=== PATIENT | female | born 1975 | race American Indian/Alaskan Native ===

== ENCOUNTER 2016-08-29 08:39 | Inpatient (IN) | payer MEDICAID ==
[2016-08-29] MEDS ORDERED: TYLENOL PO ONE (08:53)
[2016-08-29 09:23] LABS: Basophils % (Auto) 0.3 % (0.0-1.8); Eosinophils % (Auto) 1.4 % (0.0-4.3); Hematocrit 36.8 % (30.3-42.9); Hemoglobin 12.2 gm/dl (10.1-14.3); Mean Corpuscular HGB Conc 33 % (30-34); Mean Corpuscular Hemoglobin 29 pg (28-32); Mean Corpuscular Volume 87 fl (79-97); Platelet Count 182 K/mm3 (140-440); Red Blood Count 4.24 M/mm3 (3.65-5.03); Red Cell Distribution Width 14.2 % (13.2-15.2); White Blood Count 8.5 K/mm3 (4.5-11.0)
[2016-08-29 09:31] LABS: BUN/Creatinine Ratio 13.12; Calcium 8.8 mg/dL (8.4-10.2); Chloride 90.4 mmol/L (98-107)
[2016-08-29 09:32] LABS: Potassium 2.9 mmol/L (3.6-5.0)
[2016-08-29] MEDS ORDERED: K-DUR PO ONE (09:37)
--- NOTE | 2016-08-29 09:51 | XRay Report ---
ROUTINE CHEST, TWO VIEWS: HISTORY: Shortness of breath. The trachea, heart, mediastinal contour, lung miramontes and bony thorax are unremarkable. IMPRESSION: Unremarkable chest x-ray.
[2016-08-29] MEDS ORDERED: NACL 0.9% 1000 ML 1,000 ML IV ONE ×2 (12:02→14:58)
[2016-08-29 12:30] LABS: Urine Drugs of Abuse Note Disclamer
[2016-08-29 12:37] LABS: INR 0.97 (0.87-1.13)
[2016-08-29 12:39] LABS: Partial Thromboplastin Time 25.5 Sec. (24.2-36.6)
[2016-08-29 12:47] LABS: Bilirubin,Urine NEG (Negative); Blood,Urine SM (Negative); Ketones,Urine NEG (Negative); Leukocyte Esterase,Urine NEG (Negative); Nitrite,Urine NEG (Negative); Protein,Urine <15 mg/dL mg/dL (Negative); Urobilinogen,Urine < 2.0 mg/dL (<2.0); WBC,Urine < 1.0 /HPF (0.0-6.0)
[2016-08-29 12:49] LABS: Alanine Aminotransferase 31 units/L (7-56); Albumin/Globulin Ratio 1.3 %; Alkaline Phosphatase 63 units/L (35-129); Bilirubin,Total 0.3 mg/dL (0.1-1.2); Creatine Kinase 68 units/L (30-135); Creatine Kinase MB < 1.0 ng/mL (0.0-4.0); Magnesium 1.9 mg/dL (1.7-2.3); Total Protein 7.2 g/dL (6.3-8.2)
[2016-08-29 12:50] LABS: Bilirubin,Direct < 0.2 mg/dL (0-0.2); Bilirubin,Indirect 0.1 mg/dL
[2016-08-29] MEDS ORDERED: ZOFRAN ONE (13:30)
[2016-08-29] MEDS ORDERED: MORPHINE ONE (13:30)
[2016-08-29] MEDS ORDERED: TESSALON PERLES PO ONE ×2 (13:30→13:41)
[2016-08-29] MEDS ORDERED: ZOFRAN IV ONE (13:40)
[2016-08-29] MEDS ORDERED: MORPHINE IV ONE (13:42)
--- NOTE | 2016-08-29 14:46 | Emergency Department Report ---
ED General Adult HPI - General Chief complaint: Fever Stated complaint: FEVER Time Seen by Provider: 08/29/16 11:58 Source: patient Mode of arrival: Ambulatory Limitations: No Limitations - History of Present Illness Initial comments: Patient states that she's had a fever associated with yellow productive sputum for the past 3 days. She denies acute dyspnea. She's had some chills but they haven't been shaking. She feels weak and there is malaise. She denies any previous hospitalizations kidney disease or diabetes. A history of hypertension. -: Gradual, days(s) Location: chest (chest soreness on cough only), upper extremity, lower extremity (generalized aching) Severity scale (0 -10): 6 Quality: aching Consistency: intermittent Improves with: none Worsens with: none Associated Symptoms: chest pain, fever/chills, malaise, weakness Treatments Prior to Arrival: none - Related Data Home Medications Medication Instructions Recorded Confirmed Last Taken Citalopram [Celexa] 20 mg PO DAILY 06/06/13 05/09/14 05/09/14 Atenolol/Chlorthalidone [Tenoretic 1 tab PO BID 05/09/14 05/09/14 05/09/14 100-25 mg] Dextroamphetamine/Amphetamine 10 mg PO DAILY PRN 05/09/14 05/09/14 Unknown [Adderall 10 mg Tablet] Dextroamphetamine/Amphetamine 20 mg PO DAILY 05/09/14 05/09/14 05/06/14 [Adderall] Lisinopril [Zestril] 20 mg PO QDAY 05/09/14 05/09/14 05/09/14 Spironolactone [Aldactone] 25 mg PO DAILY 05/09/14 05/09/14 05/09/14 amLODIPine [Norvasc] 5 mg PO DAILY 05/09/14 05/09/14 05/09/14 clonazePAM [Klonopin] 1 mg PO BID PRN 05/09/14 05/09/14 05/09/14 Previous Rx's Medication Instructions Recorded Last Taken Type Acetaminophen/Codeine 1 tab PO Q6H PRN #14 tab 05/09/14 Unknown Rx [Acetaminophen-Codeine #3 TAB] Cyclobenzaprine [Flexeril 10mg] 10 mg PO TID PRN #14 tablet 05/09/14 Unknown Rx Allergies Allergy/AdvReac Type Severity Reaction Status Date / Time No Known Allergies Allergy Verified 01/10/14 08:47 ED Review of Systems ROS: Stated complaint: FEVER Other details as noted in HPI Constitutional: denies: chills, fever Eyes: denies: eye pain, eye discharge, vision change ENT: throat pain (feels scratchy). denies: ear pain Respiratory: cough. denies: shortness of breath, wheezing Cardiovascular: denies: chest pain, palpitations Endocrine: no symptoms reported Gastrointestinal: denies: abdominal pain, nausea, diarrhea Genitourinary: denies: urgency, dysuria, discharge Musculoskeletal: denies: back pain, joint swelling, arthralgia Skin: denies: rash, lesions Neurological: denies: headache, weakness, paresthesias Psychiatric: denies: anxiety, depression Hematological/Lymphatic: denies: easy bleeding, easy bruising ED Past Medical Hx - Past Medical History Previous Medical History?: Yes Hx Hypertension: Yes Hx Psychiatric Treatment: Yes (depression) - Surgical History Past Surgical History?: Yes Additional Surgical History: hernia repair - Social History Smoking Status: Never Smoker Substance Use Type: Alcohol - Medications Home Medications: Home Medications Medication Instructions Recorded Confirmed Last Taken Type Citalopram [Celexa] 20 mg PO DAILY 06/06/13 05/09/14 05/09/14 History Acetaminophen/Codeine 1 tab PO Q6H PRN #14 tab 05/09/14 Unknown Rx [Acetaminophen-Codeine #3 TAB] Atenolol/Chlorthalidone [Tenoretic 1 tab PO BID 05/09/14 05/09/14 05/09/14 History 100-25 mg] Cyclobenzaprine [Flexeril 10mg] 10 mg PO TID PRN #14 tablet 05/09/14 Unknown Rx Dextroamphetamine/Amphetamine 10 mg PO DAILY PRN 05/09/14 05/09/14 Unknown History [Adderall 10 mg Tablet] Dextroamphetamine/Amphetamine 20 mg PO DAILY 05/09/14 05/09/14 05/06/14 History [Adderall] Lisinopril [Zestril] 20 mg PO QDAY 05/09/14 05/09/14 05/09/14 History Spironolactone [Aldactone] 25 mg PO DAILY 11/05/09/14 05/09/14 History amLODIPine [Norvasc] 5 mg PO DAILY 05/09/14 05/09/14 05/09/14 History clonazePAM [Klonopin] 1 mg PO BID PRN 05/09/14 05/09/14 05/09/14 History ED Physical Exam - General Limitations: No Limitations General appearance: alert, other (appears uncomfortable) - Head Head exam: Present: atraumatic, normocephalic - Eye Eye exam: Present: normal appearance, PERRL, EOMI. Absent: scleral icterus - ENT ENT exam: Present: mucous membranes dry - Neck Neck exam: Present: normal inspection. Absent: tenderness, meningismus - Respiratory Respiratory exam: Present: normal lung sounds bilaterally. Absent: respiratory distress - Cardiovascular Cardiovascular Exam: Present: regular rate, normal rhythm. Absent: systolic murmur, diastolic murmur, rubs, gallop - GI/Abdominal GI/Abdominal exam: Present: soft, normal bowel sounds. Absent: distended, tenderness, guarding, rebound, rigid - Extremities Exam Extremities exam: Present: normal inspection - Back Exam Back exam: Present: normal inspection - Neurological Exam Neurological exam: Present: alert, oriented X3, CN II-XII intact. Absent: motor sensory deficit - Psychiatric Psychiatric exam: Present: normal affect, normal mood - Skin Skin exam: Present: warm, dry, intact, normal color. Absent: rash ED Course Vital Signs 08/29/16 08/29/16 08/29/16 08:46 09:01 11:40 Temperature 103.2 F H Pulse Rate 113 H Respiratory 18 18 Rate Blood Pressure 159/106 O2 Sat by Pulse 100 98 Oximetry 08/29/16 08/29/16 08/29/16 11:42 11:44 11:46 Temperature Pulse Rate 94 H 101 H 93 H Respiratory 16 16 16 Rate Blood Pressure 108/72 108/72 108/72 O2 Sat by Pulse 98 100 97 Oximetry 08/29/16 08/29/16 08/29/16 11:50 12:40 12:42 Temperature Pulse Rate 92 H 95 H Respiratory 16 24 17 Rate Blood Pressure 117/64 117/64 O2 Sat by Pulse 97 100 100 Oximetry 08/29/16 08/29/16 08/29/16 12:44 12:46 12:48 Temperature Pulse Rate 96 H 97 H 95 H Respiratory 14 21 13 Rate Blood Pressure 117/64 117/64 117/64 O2 Sat by Pulse 98 99 99 Oximetry 08/29/16 08/29/16 08/29/16 12:50 12:52 12:54 Temperature Pulse Rate 94 H 91 H 95 H Respiratory 18 17 15 Rate Blood Pressure 117/64 117/64 117/64 O2 Sat by Pulse 100 100 99 Oximetry 08/29/16 08/29/16 08/29/16 12:56 12:58 13:00 Temperature Pulse Rate 94 H 92 H 95 H Respiratory 14 16 18 Rate Blood Pressure 117/64 117/64 117/64 O2 Sat by Pulse 99 100 99 Oximetry 08/29/16 08/29/16 08/29/16 13:01 13:02 13:04 Temperature Pulse Rate 94 H 95 H 94 H Respiratory 13 17 17 Rate Blood Pressure 131/73 131/73 131/73 O2 Sat by Pulse 98 99 92 Oximetry 08/29/16 08/29/16 08/29/16 13:06 13:08 13:10 Temperature Pulse Rate 92 H 92 H 93 H Respiratory 17 18 20 Rate Blood Pressure 131/73 131/73 131/73 O2 Sat by Pulse 99 98 99 Oximetry 08/29/16 08/29/16 08/29/16 13:12 13:14 13:16 Temperature Pulse Rate 91 H 92 H 94 H Respiratory 19 18 19 Rate Blood Pressure 131/73 131/73 131/73 O2 Sat by Pulse 98 91 92 Oximetry 08/29/16 08/29/16 08/29/16 13:18 13:20 13:22 Temperature Pulse Rate 106 H Respiratory 18 36 H 34 H Rate Blood Pressure 131/73 131/73 131/73 O2 Sat by Pulse 98 88 99 Oximetry 08/29/16 08/29/16 08/29/16 13:24 13:26 13:28 Temperature Pulse Rate Respiratory 19 16 21 Rate Blood Pressure 131/73 131/73 131/73 O2 Sat by Pulse 100 99 100 Oximetry 08/29/16 08/29/16 08/29/16 13:30 13:32 13:34 Temperature Pulse Rate Respiratory 19 16 26 H Rate Blood Pressure 131/73 131/73 131/73 O2 Sat by Pulse 100 99 100 Oximetry 08/29/16 08/29/16 08/29/16 13:36 13:38 13:40 Temperature Pulse Rate Respiratory 18 17 24 Rate Blood Pressure 131/73 131/73 131/73 O2 Sat by Pulse 97 98 100 Oximetry 08/29/16 08/29/16 08/29/16 13:42 13:44 13:46 Temperature Pulse Rate 82 Respiratory 14 13 14 Rate Blood Pressure 131/73 131/73 131/73 O2 Sat by Pulse 99 99 99 Oximetry 08/29/16 08/29/16 08/29/16 13:48 13:50 13:52 Temperature Pulse Rate 92 H 93 H Respiratory 17 16 17 Rate Blood Pressure 131/73 131/73 131/73 O2 Sat by Pulse 100 98 100 Oximetry 08/29/16 08/29/16 08/29/16 13:54 13:56 13:58 Temperature Pulse Rate 92 H 92 H 93 H Respiratory 22 17 20 Rate Blood Pressure 131/73 131/73 131/73 O2 Sat by Pulse 100 100 100 Oximetry 08/29/16 08/29/16 08/29/16 14:00 14:02 14:04 Temperature Pulse Rate 91 H 95 H 93 H Respiratory 20 19 19 Rate Blood Pressure 132/70 132/70 132/70 O2 Sat by Pulse 100 100 99 Oximetry 08/29/16 08/29/16 08/29/16 14:06 14:08 14:10 Temperature Pulse Rate 95 H 97 H 96 H Respiratory 13 12 15 Rate Blood Pressure 132/70 132/70 132/70 O2 Sat by Pulse 99 98 99 Oximetry 08/29/16 08/29/16 08/29/16 14:12 14:14 14:16 Temperature Pulse Rate 93 H 93 H 95 H Respiratory 16 13 15 Rate Blood Pressure 132/70 132/70 132/70 O2 Sat by Pulse 99 99 99 Oximetry - Reevaluation(s) Reevaluation #1: She given supplemental potassium IV fluids and finally Levaquin. Case was related to Dr. Gasca litigation paralegal for the hospitalist service. Patient will be admitted. 08/29/16 15:27 ED Medical Decision Making - Lab Data Result diagrams: 08/29/16 08:56 08/29/16 08:56 Laboratory Results - last 24 hr 08/29/16 08/29/16 08/29/16 08:56 08:56 12:06 WBC 8.5 RBC 4.24 Hgb 12.2 Hct 36.8 MCV 87 MCH 29 MCHC 33 RDW 14.2 Plt Count 182 Lymph % (Auto) 7.6 L [place] % (Auto) 3.8 Eos % (Auto) 1.4 Baso % (Auto) 0.3 Lymph # 0.6 L [place] # 0.3 Eos # 0.1 Baso # 0.0 Seg Neutrophils % 86.9 H Seg Neutrophils # 7.4 PT 12.8 INR 0.97 APTT 25.5 Potassium 2.9 L* Carbon Dioxide 24 BUN 21 H Creatinine 1.6 H Estimated GFR 43 BUN/Creatinine Ratio 13.12 Glucose 124 H Lactic Acid Calcium 8.8 Magnesium Total Bilirubin Direct Bilirubin Indirect Bilirubin AST ALT Alkaline Phosphatase Total Creatine Kinase CK-MB (CK-2) CK-MB (CK-2) Rel Index Troponin T NT-Pro-B Natriuret Pep Total Protein Albumin Albumin/Globulin Ratio Urine Color Urine Turbidity Urine pH Ur Specific [place] Urine Protein Urine Glucose (UA) Urine Ketones Urine Blood Urine Nitrite Urine Bilirubin Urine Urobilinogen Ur Leukocyte Esterase Urine WBC (Auto) Urine RBC (Auto) U Epithel Cells (Auto) Urine HCG, Qual Urine Opiates Screen Urine Methadone Screen Ur Barbiturates Screen Ur Phencyclidine Scrn Ur Amphetamines Screen U Benzodiazepines Scrn Urine Cocaine Screen U Marijuana (THC) Screen Drugs of Abuse Note 08/29/16 08/29/16 08/29/16 12:06 12:06 12:20 WBC RBC Hgb Hct MCV MCH MCHC RDW Plt Count Lymph % (Auto) [place] % (Auto) Eos % (Auto) Baso % (Auto) Lymph # [place] # Eos # Baso # Seg Neutrophils % Seg Neutrophils # PT INR APTT Potassium Carbon Dioxide BUN Creatinine Estimated GFR BUN/Creatinine Ratio Glucose Lactic Acid 1.0 Calcium Magnesium 1.9 Total Bilirubin 0.3 Direct Bilirubin < 0.2 Indirect Bilirubin 0.1 AST 39 ALT 31 Alkaline Phosphatase 63 Total Creatine Kinase 68 CK-MB (CK-2) < 1.0 CK-MB (CK-2) Rel Index 1.4 Troponin T < 0.010 NT-Pro-B Natriuret Pep 129.9 Total Protein 7.2 Albumin 4.0 Albumin/Globulin Ratio 1.3 Urine Color Straw Urine Turbidity Clear Urine pH 6.0 Ur Specific [place] 1.008 Urine Protein <15 mg/dl Urine Glucose (UA) Neg Urine Ketones Neg Urine Blood Sm Urine Nitrite Neg Urine Bilirubin Neg Urine Urobilinogen < 2.0 Ur Leukocyte Esterase Neg Urine WBC (Auto) < 1.0 Urine RBC (Auto) 2.0 U Epithel Cells (Auto) 1.0 Urine HCG, Qual Negative Urine Opiates Screen Urine Methadone Screen Ur Barbiturates Screen Ur Phencyclidine Scrn Ur Amphetamines Screen U Benzodiazepines Scrn Urine Cocaine Screen U Marijuana (THC) Screen Drugs of Abuse Note 08/29/16 12:20 WBC RBC Hgb Hct MCV MCH MCHC RDW Plt Count Lymph % (Auto) [place] % (Auto) Eos % (Auto) Baso % (Auto) Lymph # [place] # Eos # Baso # Seg Neutrophils % Seg Neutrophils # PT INR APTT Potassium Carbon Dioxide BUN Creatinine Estimated GFR BUN/Creatinine Ratio Glucose Lactic Acid Calcium Magnesium Total Bilirubin Direct Bilirubin Indirect Bilirubin AST ALT Alkaline Phosphatase Total Creatine Kinase CK-MB (CK-2) CK-MB (CK-2) Rel Index Troponin T NT-Pro-B Natriuret Pep Total Protein Albumin Albumin/Globulin Ratio Urine Color Urine Turbidity Urine pH Ur Specific [place] Urine Protein Urine Glucose (UA) Urine Ketones Urine Blood Urine Nitrite Urine Bilirubin Urine Urobilinogen Ur Leukocyte Esterase Urine WBC (Auto) Urine RBC (Auto) U Epithel Cells (Auto) Urine HCG, Qual Urine Opiates Screen Presumptive negative Urine Methadone Screen Presumptive negative Ur Barbiturates Screen Presumptive negative Ur Phencyclidine Scrn Presumptive negative Ur Amphetamines Screen Presumptive positive U Benzodiazepines Scrn Presumptive negative Urine Cocaine Screen Presumptive negative U Marijuana (THC) Screen Presumptive negative Drugs of Abuse Note Disclamer - EKG Data -: EKG Interpreted by Me EKG shows normal: sinus rhythm Rate: normal - EKG Data When compared to previous EKG there are: previous EKG unavailable Interpretation: nonspecific ST-T wave pj, other (there is a prolonged QT interval/U wave. Nonspecific but possibly related to electrolyte disorder) - Radiology Data interpreted by me: Chest x-ray no acute process Critical care attestation.: If time is entered above; I have spent that time in minutes in the direct care of this critically ill patient, excluding procedure time. ED Disposition Clinical Impression: Respiratory infection, Hypokalemia, Increased anion gap metabolic acidosis, Renal insufficiency Disposition: OP ADMITTED IP TO THIS HOSP Is pt being admited?: Yes Does the pt Need Aspirin: Yes Condition: Stable Referrals: DEBRA NEVAREZ MD [Primary Care Provider] - 3-5 Days Time of Disposition: 15:31
[2016-08-29] MEDS ORDERED: LEVAQUIN 500MG/100ML 500 MG/100 ML BAG IV ONE (14:55)
[2016-08-29] MEDS ORDERED: BABY ASPIRIN PO ONE (15:33)
--- NOTE | 2016-08-29 15:56 | History and Physical Report ---
History of Present Illness Date of examination: 08/29/16 History of present illness: Patient states that she's had a fever associated with yellow productive sputum for the past 3 days. She denies acute dyspnea. She's had some chills but they haven't been shaking. She feels weak and has malaise. She denies any previous hospitalizations kidney disease or diabetes. A history of hypertension. Past History Past Medical History: hypertension, other (polycystic ovarian disease) Medications and Allergies Allergies Allergy/AdvReac Type Severity Reaction Status Date / Time No Known Allergies Allergy Verified 01/10/14 08:47 Home Medications Medication Instructions Recorded Confirmed Last Taken Type Citalopram [Celexa] 20 mg PO DAILY 06/06/13 05/09/14 05/09/14 History Acetaminophen/Codeine 1 tab PO Q6H PRN #14 tab 05/09/14 Unknown Rx [Acetaminophen-Codeine #3 TAB] Atenolol/Chlorthalidone [Tenoretic 1 tab PO BID 05/09/14 05/09/14 05/09/14 History 100-25 mg] Cyclobenzaprine [Flexeril 10mg] 10 mg PO TID PRN #14 tablet 05/09/14 Unknown Rx Dextroamphetamine/Amphetamine 10 mg PO DAILY PRN 05/09/14 05/09/14 Unknown History [Adderall 10 mg Tablet] Dextroamphetamine/Amphetamine 20 mg PO DAILY 05/09/14 05/09/14 05/06/14 History [Adderall] Lisinopril [Zestril] 20 mg PO QDAY 05/09/14 05/09/14 05/09/14 History Spironolactone [Aldactone] 25 mg PO DAILY 05/09/14 05/09/14 05/09/14 History amLODIPine [Norvasc] 5 mg PO DAILY 05/09/14 05/09/14 05/09/14 History clonazePAM [Klonopin] 1 mg PO BID PRN 05/09/14 05/09/14 05/09/14 History Active Meds: Active Medications Levofloxacin/Dextrose (Levaquin 500mg/100ml) 500 mg in 100 mls @ 100 mls/hr IV ONCE ONE Stop: 08/29/16 15:54 Sodium Chloride (Nacl 0.9% 1000 Ml) 1,000 mls @ 125 mls/hr IV ONCE ONE Stop: 08/29/16 22:57 Review of Systems Constitutional: fever, chills, weakness Exam - Constitutional Vitals: Temp Pulse Resp BP Pulse Ox 103.2 F H 95 H 15 132/70 99 08/29/16 08:46 08/29/16 14:16 08/29/16 14:16 08/29/16 14:16 08/29/16 14:16 General appearance: Present: mild distress - EENT Eyes: Present: PERRL, EOM intact ENT: hearing intact, clear oral mucosa - Neck Neck: Present: supple, normal ROM - Respiratory Respiratory effort: normal Respiratory: bilateral: CTA - Cardiovascular Rhythm: regular Heart Sounds: Present: S1 & S2 - Extremities Extremities: no ischemia, No edema - Abdominal General gastrointestinal: Present: soft, non-tender, non-distended, normal bowel sounds - Musculoskeletal Musculoskeletal: strength equal bilaterally - Psychiatric Psychiatric: appropriate mood/affect, intact judgment & insight - Neurologic Neurologic: CNII-XII intact, moves all extremities Results - Labs CBC & Chem 7: 08/29/16 08:56 08/29/16 08:56 Labs: Laboratory Last Values WBC 8.5 K/mm3 (4.5-11.0) 08/29/16 08:56 RBC 4.24 M/mm3 (3.65-5.03) 08/29/16 08:56 Hgb 12.2 gm/dl (10.1-14.3) 08/29/16 08:56 Hct 36.8 % (30.3-42.9) 08/29/16 08:56 MCV 87 fl (79-97) 08/29/16 08:56 MCH 29 pg (28-32) 08/29/16 08:56 MCHC 33 % (30-34) 08/29/16 08:56 RDW 14.2 % (13.2-15.2) 08/29/16 08:56 Plt Count 182 K/mm3 (140-440) 08/29/16 08:56 Lymph % (Auto) 7.6 % (13.4-35.0) L 08/29/16 08:56 [place] % (Auto) 3.8 % (0.0-7.3) 08/29/16 08:56 Eos % (Auto) 1.4 % (0.0-4.3) 08/29/16 08:56 Baso % (Auto) 0.3 % (0.0-1.8) 08/29/16 08:56 Lymph # 0.6 K/mm3 (1.2-5.4) L 08/29/16 08:56 [place] # 0.3 K/mm3 (0.0-0.8) 08/29/16 08:56 Eos # 0.1 K/mm3 (0.0-0.4) 08/29/16 08:56 Baso # 0.0 K/mm3 (0.0-0.1) 08/29/16 08:56 Seg Neutrophils % 86.9 % (40.0-70.0) H 08/29/16 08:56 Seg Neutrophils # 7.4 K/mm3 (1.8-7.7) 08/29/16 08:56 PT 12.8 Sec. (12.2-14.9) 08/29/16 12:06 INR 0.97 (0.87-1.13) 08/29/16 12:06 APTT 25.5 Sec. (24.2-36.6) 08/29/16 12:06 Potassium 2.9 mmol/L (3.6-5.0) L* 08/29/16 08:56 Carbon Dioxide 24 mmol/L (22-30) 08/29/16 08:56 BUN 21 mg/dL (7-17) H 08/29/16 08:56 Creatinine 1.6 mg/dL (0.7-1.2) H 08/29/16 08:56 Estimated GFR 43 ml/min 08/29/16 08:56 BUN/Creatinine Ratio 13.12 % 08/29/16 08:56 Glucose 124 mg/dL (65-100) H 08/29/16 08:56 Lactic Acid 1.0 mmol/L (0.7-2.0) 08/29/16 12:06 Calcium 8.8 mg/dL (8.4-10.2) 08/29/16 08:56 Magnesium 1.9 mg/dL (1.7-2.3) 08/29/16 12:06 Total Bilirubin 0.3 mg/dL (0.1-1.2) 08/29/16 12:06 Direct Bilirubin < 0.2 mg/dL (0-0.2) 08/29/16 12:06 Indirect Bilirubin 0.1 mg/dL 08/29/16 12:06 AST 39 units/L (5-40) 08/29/16 12:06 ALT 31 units/L (7-56) 08/29/16 12:06 Alkaline Phosphatase 63 units/L (35-129) 08/29/16 12:06 Total Creatine Kinase 68 units/L (30-135) 08/29/16 12:06 CK-MB (CK-2) < 1.0 ng/mL (0.0-4.0) 08/29/16 12:06 CK-MB (CK-2) Rel Index 1.4 (0-4) 08/29/16 12:06 Troponin T < 0.010 ng/mL (0.00-0.029) 08/29/16 12:06 NT-Pro-B Natriuret Pep 129.9 pg/mL (0-450) 08/29/16 12:06 Total Protein 7.2 g/dL (6.3-8.2) 08/29/16 12:06 Albumin 4.0 g/dL (3.9-5) 08/29/16 12:06 Albumin/Globulin Ratio 1.3 % 08/29/16 12:06 Urine Color Straw (Yellow) 08/29/16 12:20 Urine Turbidity Clear (Clear) 08/29/16 12:20 Urine pH 6.0 (5.0-7.0) 08/29/16 12:20 Ur Specific [place] 1.008 (1.003-1.030) 08/29/16 12:20 Urine Protein <15 mg/dl mg/dL (Negative) 08/29/16 12:20 Urine Glucose (UA) Neg mg/dL (Negative) 08/29/16 12:20 Urine Ketones Neg mg/dL (Negative) 08/29/16 12:20 Urine Blood Sm (Negative) 08/29/16 12:20 Urine Nitrite Neg (Negative) 08/29/16 12:20 Urine Bilirubin Neg (Negative) 08/29/16 12:20 Urine Urobilinogen < 2.0 mg/dL (<2.0) 08/29/16 12:20 Ur Leukocyte Esterase Neg (Negative) 08/29/16 12:20 Urine WBC (Auto) < 1.0 /HPF (0.0-6.0) 08/29/16 12:20 Urine RBC (Auto) 2.0 /HPF (0.0-6.0) 08/29/16 12:20 U Epithel Cells (Auto) 1.0 /HPF (0-13.0) 08/29/16 12:20 Urine HCG, Qual Negative (Negative) 08/29/16 12:20 Urine Opiates Screen Presumptive negative 08/29/16 12:20 Urine Methadone Screen Presumptive negative 08/29/16 12:20 Ur Barbiturates Screen Presumptive negative 08/29/16 12:20 Ur Phencyclidine Scrn Presumptive negative 08/29/16 12:20 Ur Amphetamines Screen Presumptive positive 08/29/16 12:20 U Benzodiazepines Scrn Presumptive negative 08/29/16 12:20 Urine Cocaine Screen Presumptive negative 08/29/16 12:20 U Marijuana (THC) Screen Presumptive negative 08/29/16 12:20 Drugs of Abuse Note Disclamer 08/29/16 12:20 Assessment and Plan - Patient Problems (1) Fever Current Visit: Yes Status: Acute Qualifiers: Fever type: F Encounter type: E Plan to address problem: Unsure of etiology of fever but will check blood cultures, urine cultures. Chest x-ray appears to be normal. We'll start IV Levaquin per ER physician. We will get infectious disease consult. We'll also check for influenza (2) Polycystic ovarian disease Current Visit: Yes Status: Acute Plan to address problem: Noted. May need nephrology involvement given renal insufficiency (3) Hypokalemia Current Visit: Yes Status: Acute Plan to address problem: We'll replete potassium (4) Increased anion gap metabolic acidosis Current Visit: Yes Status: Acute Plan to address problem: Unsure of etiology but will begin workup. Nephrology consult. We will give one ampule of bicarbonate (5) Renal insufficiency Current Visit: Yes Status: Acute Plan to address problem: Patient has a history of polycystic ovarian disease. We will get nephrology consult
[2016-08-29] MEDS ORDERED: ZOFRAN IV PRN (15:59)
[2016-08-29] MEDS ORDERED: DULCOLAX PR PRN (15:59)
[2016-08-29] MEDS ORDERED: PERCOCET 5/325 PO PRN (15:59)
[2016-08-29] MEDS ORDERED: MORPHINE IV PRN (15:59)
[2016-08-29] MEDS ORDERED: MILK OF MAGNESIA PO PRN (15:59)
[2016-08-29] MEDS ORDERED: FLEXERIL PO PRN (16:07)
[2016-08-29] MEDS: DUONEB 0.5 MG-3 MG/3 ML SOLN IH SCH ×2 (16:48→20:16)
[2016-08-29] MEDS: LOVENOX SUB-Q SCH (17:25)
[2016-08-29] MEDS: TYLENOL PO PRN ×2 (17:26→23:43)
[2016-08-29] MEDS: PHENERGAN/CODEINE 6.25-10 MG/5ML PO SCH (18:15)
[2016-08-29] MEDS: ALDACTONE PO SCH (18:15)
[2016-08-29] MEDS: celeXA PO SCH (18:15)
[2016-08-29] MEDS: AMPHETAMINE PO SCH (18:31)
[2016-08-29] MEDS: DEXTROAMPHETAMINE PO SCH (18:31)
[2016-08-29] MEDS: ZESTRIL PO SCH (18:32)
[2016-08-29] MEDS ORDERED: ATENOLOL PO SCH (22:00)
[2016-08-29] MEDS ORDERED: CHLORTHALIDONE PO SCH (22:00)
[2016-08-29] MEDS: THALITONE PO SCH (22:05)
[2016-08-29] MEDS: TENORMIN PO SCH (22:09)
[2016-08-30] MEDS: DUONEB 0.5 MG-3 MG/3 ML SOLN IH SCH ×4 (02:11→20:04)
[2016-08-30] MEDS: NACL 0.9% 1000 ML 1,000 ML IV SCH ×2 (06:08→17:00)
[2016-08-30] MEDS: PHENERGAN/CODEINE 6.25-10 MG/5ML PO SCH ×2 (06:38→17:44)
[2016-08-30 07:04] LABS: Basophils % (Auto) 0.4 % (0.0-1.8); Eosinophils % (Auto) 1.9 % (0.0-4.3); Hematocrit 33.1 % (30.3-42.9); Hemoglobin 10.9 gm/dl (10.1-14.3); Mean Corpuscular HGB Conc 33 % (30-34); Mean Corpuscular Hemoglobin 29 pg (28-32); Mean Corpuscular Volume 86 fl (79-97); Platelet Count 147 K/mm3 (140-440); Red Blood Count 3.84 M/mm3 (3.65-5.03); Red Cell Distribution Width 14.4 % (13.2-15.2); White Blood Count 4.6 K/mm3 (4.5-11.0)
[2016-08-30 07:10] LABS: Fractional Sodium Excretion 0.7; Potassium, Urine 12.2 mEq/L
[2016-08-30 07:22] LABS: Albumin 3.6 g/dL (3.9-5); Albumin/Globulin Ratio 1.1 %; BUN/Creatinine Ratio 13.12; Bilirubin,Total 0.3 mg/dL (0.1-1.2); Calcium 7.8 mg/dL (8.4-10.2); Chloride 99.5 mmol/L (98-107); Potassium 3.2 mmol/L (3.6-5.0); Total Protein 6.8 g/dL (6.3-8.2)
--- NOTE | 2016-08-30 09:08 | Admit Criteria Form ---
Admission Criteria Documentation: HYPONATREMIA; HYPERNATREMIA; HYPOKALEMIA; HYPERKALEMIA; HYPOCALCEMIA; HYPERCALCEMIA Clinical Indications for Inpatient Care (Place 'X' for any and all applicable criteria): Ongoing inpatient care may be indicated for ANY ONE of the following [G](1)(2)(3 )(5): [ ]I. Hyponatremia with ANY ONE of the following: [ ]a) Sodium less than 130 mEq/L (mmol/L) (new) (6)(22) [ ]b) Sodium less than 135 mEq/L (mmol/L) with ANY ONE of the following: [ ]i) Severe medical etiology requiring inpatient management (eg, heart failure, hypovolemia) [ ]ii) Altered mental status [ ]iii) Seizures [ ]II. Hypernatremia with ANY ONE of the following: [ ]a) Sodium greater than 155 mEq/L (mmol/L) [ ]b) Sodium greater than 150 mEq/L (mmol/L) with ANY ONE of the following: [ ] i) Altered mental status [ ]ii) Seizures [ ]iii) Severe medical etiology (eg, hypovolemia, diabetes insipidus) [ ]iv) Severe weakness [ ]v) Severe medical etiology (eg, hemolysis, infection, drug overdose) [X]III. Hypokalemia with ANY ONE of the following: [ ]a) Potassium less than 2.5 mEq/L (mmol/L) despite outpatient and emergency treatment [X]b) Potassium less than 3.0 mEq/L (mmol/L) with ANY ONE of the following: [ ]i) Weakness [ ]ii) Cardiac abnormality (eg, arrhythmia, conduction disturbance) [ ]iii) Cardiac ischemia [ ]iv) Ileus [X]v) Ongoing medical cause requiring inpatient management. ( e.g., acute renal wasting, SIADH) [ ]vi) Other severe symptoms [ ] IV. Hyperkalemia with ANY ONE of the following: [ ]a) Potassium greater than 6.5 mEq/L (mmol/L) [ ]b) Potassium greater than 5 mEq/L (mmol/L) with ANY ONE of the following: [ ]i) Severe ECG findings [H] [ ]ii) Acute worsening of renal failure (creatinine greater than 2.5 mg/dL (221 micromoles/L) or significant elevation for age and size) [ ] V. Hypocalcemia with ANY ONE of the following: [ ]a) Calcium less than 7 mg/dL (1.75 mmol/L) despite outpatient and emergency treatment(19) [ ]b) Calcium less than 8 mg/dL (2 mmol/L) with significant symptoms or findings; examples include: [ ]i) Cardiac abnormality (eg, arrhythmia or conduction disturbance) [ ]ii) Altered mental status [ ]iii) Seizures [ ]iv) Breathing difficulty [ ]v) Muscle spasms [ ]. Hypercalcemia with ANY ONE of the following: [ ]a) Calcium greater than 14 mg/dL (3.5 mmol/L) [ ]b) Calcium greater than 12 mg/dL (3 mmol/L) with ANY ONE of the following: [ ]i) Significant dehydration or hypovolemia as indicated by ANY ONE of the following(2): [ ]1. Clinically significant dehydration as indicated by ANY ONE of the following: [ ]A. Acute loss of weight from baseline (5% of body weight in adults, 9% in pediatric patients) [ ]B. Hemodynamic instability [ ]C. Acute renal failure [ ]D. Serum sodium greater than 150 mEq/L (mmol/L) [ ]2) Dehydration that is persistent indicated by ALL of the following: [ ]A. Oral rehydration therapy not tolerated or insufficient to adequately correct dehydration [ ]B. Appropriate intravenous treatment (eg, fluids ) does not readily correct dehydration ie, after 12 to 24 hours of treatment) [ ]ii) Significant symptoms or findings; examples include: [ ]1) Altered mental status [ ]2) Cardiac abnormality (eg, arrhythmia, conduction disturbance) [ ]3) Cardiac abnormality (eg, arrhythmia, conduction disturbance) The original [email or web address] content created by [employer] has been revised. The portions of the content which have been revised are identified through the use of italic text or in bold, and [facility] has neither reviewed nor approved the modified material. All other unmodified content is copyright [facility] [email or web address] Please see references footnoted in the original [facility] [employer] edition 2016 Admission Criteria Met: Yes
[2016-08-30] MEDS: DEXTROAMPHETAMINE PO SCH (10:00)
[2016-08-30] MEDS: AMPHETAMINE PO SCH (10:00)
--- NOTE | 2016-08-30 10:13 | Consultation ---
History of Present Illness - Reason for Consult Consult date: 08/30/16 chronic renal failure Requesting physician: CARLOS BOWEN - History of Present Illness Patient states that she's had a fever associated with yellow productive sputum for the past 3 days. She denies acute dyspnea. She's had some chills but they haven't been shaking. She feels weak and has malaise. She denies any previous hospitalizations kidney disease or diabetes. A history of hypertension. She has knowledge of renal dysfunction. However she has not seen any line analyst yet. States that she was told about her kidneys several years ago. Patient has been hypertensive since her childbirth in 2000. Patient does take some nonsteroidals that time. Denies any history of frequent urinary tract infection or gross hematuria Past History Past Medical History: hypertension, other (polycystic ovarian disease) Medications and Allergies Allergies Allergy/AdvReac Type Severity Reaction Status Date / Time No Known Allergies Allergy Verified 01/10/14 08:47 Home Medications Medication Instructions Recorded Confirmed Last Taken Type Citalopram [Celexa] 20 mg PO DAILY 06/06/13 05/09/14 05/09/14 History Acetaminophen/Codeine 1 tab PO Q6H PRN #14 tab 05/09/14 Unknown Rx [Acetaminophen-Codeine #3 TAB] Atenolol/Chlorthalidone [Tenoretic 1 tab PO BID 05/09/14 05/09/14 05/09/14 History 100-25 mg] Cyclobenzaprine [Flexeril 10mg] 10 mg PO TID PRN #14 tablet 05/09/14 Unknown Rx Dextroamphetamine/Amphetamine 10 mg PO DAILY PRN 05/09/14 05/09/14 Unknown History [Adderall 10 mg Tablet] Dextroamphetamine/Amphetamine 20 mg PO DAILY 05/09/14 05/09/14 05/06/14 History [Adderall] Lisinopril [Zestril] 20 mg PO QDAY 05/09/14 05/09/14 05/09/14 History Spironolactone [Aldactone] 25 mg PO DAILY 05/09/14 05/09/14 05/09/14 History amLODIPine [Norvasc] 5 mg PO DAILY 05/09/14 05/09/14 05/09/14 History clonazePAM [Klonopin] 1 mg PO BID PRN 11/05/09/14 05/09/14 History Active Meds: Active Medications Acetaminophen (Tylenol) 650 mg PO Q4H PRN PRN Reason: Pain MILD(1-3)/Fever >100.5/MARMOLEJO Last Admin: 08/29/16 23:43 Dose: 650 mg Albuterol/Ipratropium (Duoneb 0.5 Mg-3 Mg/3 Ml Soln) 1 ampul IH Q6HRT [facility] Last Admin: 08/30/16 08:14 Dose: 1 ampul Amlodipine Besylate (Norvasc) 5 mg PO DAILY [facility] Atenolol (Tenormin) 100 mg PO BID [facility] Last Admin: 08/29/16 22:09 Dose: Not Given Bisacodyl (Dulcolax) 10 mg [place] QDAY PRN PRN Reason: Constipation unrelieved by MOM Chlorthalidone (Thalitone) 25 mg PO BID [facility] Last Admin: 08/29/16 22:05 Dose: Not Given Citalopram Hydrobromide (Celexa) 20 mg PO DAILY [facility] Last Admin: 08/29/16 18:15 Dose: 20 mg Clonazepam (Klonopin) 1 mg PO BID PRN PRN Reason: Anxiety Cyclobenzaprine HCl (Flexeril) 10 mg PO TID PRN PRN Reason: Muscle Spasm Enoxaparin Sodium (Lovenox) 40 mg SUB-Q QDAY@1700 [facility] Last Admin: 08/29/16 17:25 Dose: 40 mg Sodium Chloride (Nacl 0.9% 1000 Ml) 1,000 mls @ 125 mls/hr IV DIRECT [facility] Last Admin: 08/30/16 06:08 Dose: 125 mls/hr Levofloxacin/Dextrose (Levaquin 500mg/100ml) 500 mg in 100 mls @ 100 mls/hr IV Q24H [facility] PRN Reason: Protocol Lisinopril (Zestril) 20 mg PO QDAY [facility] Last Admin: 08/29/16 18:32 Dose: Not Given Magnesium Hydroxide (Milk Of Magnesia) 30 ml PO Q4H PRN PRN Reason: Constipation Miscellaneous Medication (Dextroamphetamine/Amphetamine [Adderall]) 20 mg PO DAILY [facility] Last Admin: 08/29/16 18:31 Dose: Not Given Morphine Sulfate (Morphine) 2 mg IV Q4H PRN PRN Reason: Pain, Moderate (4-6) Last Admin: 08/29/16 17:00 Dose: 2 mg Ondansetron HCl (Zofran) 4 mg IV Q8H PRN PRN Reason: N/V unrelieved by Reglan Oseltamivir Phosphate (Tamiflu) 75 mg PO BID [facility] Stop: 09/03/16 22:01 Oxycodone/Acetaminophen (Percocet 5/325) 1 tab PO Q6H PRN PRN Reason: Pain, Moderate (4-6) Potassium Chloride (K-Dur) 40 meq PO Q6H [facility] Stop: 08/30/16 14:01 Promethazine HCl/Codeine (Phenergan/Codeine 6.25-10 Mg/5ml) 10 ml PO Q12H [facility] Last Admin: 08/30/16 06:38 Dose: 10 ml Spironolactone (Aldactone) 25 mg PO DAILY [facility] Last Admin: 08/29/16 18:15 Dose: 25 mg Review of Systems All systems: negative (negative except as noted above) Exam - Vital Signs Vital signs: Vital Signs Temp Pulse Resp BP Pulse Ox 103.2 F H 113 H 18 159/106 100 08/29/16 08:46 08/29/16 08:46 08/29/16 08:46 08/29/16 08:46 08/29/16 08:46 - General Appearance General appearance: well-developed, well-nourished, appears stated age EENT: PERRL, mucous membranes moist Neck: Present: neck supple, trachea midline. Absent: JVD/HJR, Masses Respiratory: Clear to Ascultation Heart: regular, normal heart rate Gastrointestinal: Present: normal, normoactive bowel sounds Integumentary: no rash, warm and dry Results - Lab Results 08/30/16 05:56 08/30/16 05:56 Most recent lab results Calcium 7.8 mg/dL (8.4-10.2) L 08/30/16 05:56 Magnesium 1.9 mg/dL (1.7-2.3) 08/29/16 12:06 Urine Creatinine 53.7 mg/dL (0.1-20.0) H 08/30/16 05:30 Urine Sodium 47 mEq/L 08/30/16 05:30 Assessment and Plan Impression * Renal insufficiency. Most likely acute or chronic. Acute component probably prerenal * Influenza * Hypertension * Hypokalemia Recommendations * Her urine fractional excretion of sodium is 0.7%. Continue IV hydration * Her urine shows a few red cells. Shall check a renal ultrasound and do vasculitis workup as well * Avoid nephrotoxins * Patient noted to be hypokalemic as well. Shall check a trans-tubular potassium gradient as well as a renin Mike ratio * Monitor patient's fluid status and electrolytes closely * Thank you very much for the consultation. Shall follow along with you.
[2016-08-30 10:16] LABS: ISTAT Base Excess -1; ISTAT HCO3 23.1; ISTAT PCO2 35.2 (35-45); ISTAT PH 7.426 (7.35-7.45); ISTAT PO2 76 (80-105); ISTAT SITE 0; ISTAT SO2 95; ISTAT TCO2 24
[2016-08-30] MEDS: THALITONE PO SCH ×2 (10:53→22:50)
[2016-08-30] MEDS: celeXA PO SCH (10:53)
[2016-08-30] MEDS: ZESTRIL PO SCH (10:53)
[2016-08-30] MEDS: TENORMIN PO SCH ×2 (10:54→22:50)
[2016-08-30] MEDS: ALDACTONE PO SCH (10:54)
[2016-08-30] MEDS: K-DUR PO SCH ×2 (10:54→14:08)
[2016-08-30] MEDS: NORVASC PO SCH (10:54)
[2016-08-30] MEDS ORDERED: TAMIFLU PO SCH (11:00)
--- NOTE | 2016-08-30 12:55 | Ultrasound Report ---
ULTRASOUND RENAL BILATERAL HISTORY: Renal failure. TECHNIQUE: transabdominal ultrasound with color Doppler interrogation. FINDINGS: The right kidney measures 15.8 x 6.9 x 7.8cm. Right renal cortex: 1.6cm. The left kidney measures 15.8 x 8.6 x 9.1cm. Left renal cortex: 2.1cm. Both kidneys are echogenic and contain multiple cysts. The largest cyst on the right measures 3.0 cm near the superior pole. The largest cyst on the left measures 5.3 cm near the superior pole. No hypervascular renal mass, nephrolithiasis, hydronephrosis or perinephric fluid is identified. The bladder which appears to contain mild debris. No bladder wall abnormality is appreciated. IMPRESSION: Echogenic kidneys with multiple cysts. No evidence for renal obstruction. Debris level in the bladder, correlate for cystitis.
[2016-08-30] MEDS ORDERED: LEVAQUIN 500MG/100ML 500 MG/100 ML BAG IV SCH (15:00)
[2016-08-30] MEDS: LOVENOX SUB-Q SCH (17:00)
--- NOTE | 2016-08-30 19:05 | Consultation ---
History of Present Illness - Reason for Consult Consult date: 08/30/16 fever Requesting physician: CARLOS BOWEN - History of Present Illness Patient states that she's had a fever associated with yellow productive sputum for the past 3 days. She denies acute dyspnea. She's had some chills but they haven't been shaking. She feels weak and has malaise. She denies any previous hospitalizations. Nasopharyngeal secretions tested positive for influnza A virus. Patient also had a fever of 103.2 hence infectious disease consult. I saw patient at bedside. She denied any other symptoms. PHYSICAL EXAM VS - tmax 103.2 Chest - b/l mild rhonchi cvs - s1s2 abd - bs+ extr - no edema. LABS Reviewed. See lab section. ASSESSMENT. 1. PNEUMONIA 2. Influnza virus infection 3. RENAL INSUFFICIENCY 4. OBESITY RECOMMENDATION 1. Oseltamivir may not be of any advantage to the patient at this point. Will d/ c. 2. Continue levaquin 3. ct chest/abdomen and pelvis. 4. cbc/bmp in am Past History Past Medical History: hypertension, other (polycystic ovarian disease) Medications and Allergies Allergies Allergy/AdvReac Type Severity Reaction Status Date / Time No Known Allergies Allergy Verified 01/10/14 08:47 Home Medications Medication Instructions Recorded Confirmed Last Taken Type Citalopram [Celexa] 20 mg PO DAILY 06/06/13 05/09/14 05/09/14 History Acetaminophen/Codeine 1 tab PO Q6H PRN #14 tab 05/09/14 Unknown Rx [Acetaminophen-Codeine #3 TAB] Atenolol/Chlorthalidone [Tenoretic 1 tab PO BID 05/09/14 05/09/14 05/09/14 History 100-25 mg] Cyclobenzaprine [Flexeril 10mg] 10 mg PO TID PRN #14 tablet 05/09/14 Unknown Rx Dextroamphetamine/Amphetamine 10 mg PO DAILY PRN 05/09/14 05/09/14 Unknown History [Adderall 10 mg Tablet] Dextroamphetamine/Amphetamine 20 mg PO DAILY 05/09/14 05/09/14 05/06/14 History [Adderall] Lisinopril [Zestril] 20 mg PO QDAY 05/09/14 05/09/14 05/09/14 History Spironolactone [Aldactone] 25 mg PO DAILY 05/09/14 05/09/14 05/09/14 History amLODIPine [Norvasc] 5 mg PO DAILY 05/09/14 05/09/14 05/09/14 History clonazePAM [Klonopin] 1 mg PO BID PRN 05/09/14 05/09/14 05/09/14 History Active Meds: Active Medications Acetaminophen (Tylenol) 650 mg PO Q4H PRN PRN Reason: Pain MILD(1-3)/Fever >100.5/[facility] Last Admin: 08/29/16 23:43 Dose: 650 mg Albuterol/Ipratropium (Duoneb 0.5 Mg-3 Mg/3 Ml Soln) 1 ampul IH Q6HRT [facility] Last Admin: 08/30/16 14:28 Dose: 1 ampul Amlodipine Besylate (Norvasc) 5 mg PO DAILY [facility] Last Admin: 08/30/16 10:54 Dose: 5 mg Atenolol (Tenormin) 100 mg PO BID [facility] Last Admin: 08/30/16 10:54 Dose: 100 mg Bisacodyl (Dulcolax) 10 mg [place] QDAY PRN PRN Reason: Constipation unrelieved by MOM Chlorthalidone (Thalitone) 25 mg PO BID [facility] Last Admin: 08/30/16 10:53 Dose: 25 mg Citalopram Hydrobromide (Celexa) 20 mg PO DAILY [facility] Last Admin: 08/30/16 10:53 Dose: 20 mg Clonazepam (Klonopin) 1 mg PO BID PRN PRN Reason: Anxiety Cyclobenzaprine HCl (Flexeril) 10 mg PO TID PRN PRN Reason: Muscle Spasm Enoxaparin Sodium (Lovenox) 40 mg SUB-Q QDAY@1700 [facility] Last Admin: 08/30/16 17:00 Dose: 40 mg Sodium Chloride (Nacl 0.9% 1000 Ml) 1,000 mls @ 125 mls/hr IV DIRECT [facility] Last Admin: 08/30/16 17:00 Dose: 125 mls/hr Levofloxacin/Dextrose (Levaquin 500mg/100ml) 500 mg in 100 mls @ 100 mls/hr IV Q24H [facility] PRN Reason: Protocol Last Admin: 08/30/16 14:07 Dose: 100 mls/hr Lisinopril (Zestril) 20 mg PO QDAY [facility] Last Admin: 08/30/16 10:53 Dose: 20 mg Magnesium Hydroxide (Milk Of Magnesia) 30 ml PO Q4H PRN PRN Reason: Constipation Morphine Sulfate (Morphine) 2 mg IV Q4H PRN PRN Reason: Pain, Moderate (4-6) Last Admin: 08/29/16 17:00 Dose: 2 mg Ondansetron HCl (Zofran) 4 mg IV Q8H PRN PRN Reason: N/V unrelieved by Reglan Oseltamivir Phosphate (Tamiflu) 75 mg PO BID [facility] Stop: 09/03/16 22:01 Last Admin: 08/30/16 14:08 Dose: 75 mg Oxycodone/Acetaminophen (Percocet 5/325) 1 tab PO Q6H PRN PRN Reason: Pain, Moderate (4-6) Promethazine HCl/Codeine (Phenergan/Codeine 6.25-10 Mg/5ml) 10 ml PO Q12H [facility] Last Admin: 08/30/16 17:44 Dose: 10 ml Spironolactone (Aldactone) 25 mg PO DAILY [facility] Last Admin: 08/30/16 10:54 Dose: 25 mg Physical Examination - Constitutional Vitals: Vital Signs Temp Pulse Resp BP Pulse Ox 99.2 F 96 H 22 119/69 98 08/30/16 16:02 08/30/16 16:02 08/30/16 16:02 08/30/16 16:02 08/30/16 16:02 Temperature -Last 24 Hours Temperature 99.2 F Temperature 99.7 F Temperature 98.6 F Temperature 99.5 F Temperature 99.2 F Results - Labs CBC & Chem 7: 08/30/16 05:56 08/30/16 11:14 Labs: Abnormal lab results 08/30/16 08/30/16 08/30/16 Range/Units 05:30 05:56 05:56 [place] % (Auto) 7.4 H (0.0-7.3) % Lymph # 0.9 L (1.2-5.4) K/mm3 Seg Neutrophils % 71.6 H (40.0-70.0) % Potassium 3.2 L (3.6-5.0) mmol/L BUN 21 H (7-17) mg/dL Creatinine 1.6 H (0.7-1.2) mg/dL Glucose 120 H (65-100) mg/dL Calcium 7.8 L (8.4-10.2) mg/dL Albumin 3.6 L (3.9-5) g/dL Urine Creatinine 53.7 H (0.1-20.0) mg/dL 08/30/16 Range/Units 11:14 [place] % (Auto) (0.0-7.3) % Lymph # (1.2-5.4) K/mm3 Seg Neutrophils % (40.0-70.0) % Potassium (3.6-5.0) mmol/L BUN (7-17) mg/dL Creatinine 1.4 H (0.7-1.2) mg/dL Glucose (65-100) mg/dL Calcium (8.4-10.2) mg/dL Albumin (3.9-5) g/dL Urine Creatinine (0.1-20.0) mg/dL
--- NOTE | 2016-08-30 19:21 | Progress Note ---
Assessment and Plan Assessment and plan: Influenza A Infection. Start Tamiflu, supportive care. Fever . ID consulted Acute kidney injury versus CKD. She has history of polycystic kidneys. Nephrology consulted, iv fluids Polycystic kidney disease. Hypokalemia. Replace and recheck in am. Hypertension. BP stable on Atenolol, Norvasc, Lisinopril DVT prophylaxis with Lovenox Full code status History Interval history: Fever, cough Generalized body pains Hospitalist Physical - Physical exam Narrative exam: Gen: Not in acute distress, obese HEENT: Normocephalic,atraumatic Neck :supple, no JVD Lungs: clear to auscultation bilaterally, no crackles no wheezes Heart: S1 and S2 regular, no murmurs, rubs or gallops, Abdomen: soft non-tender, non-distended, normal bowel sounds Extremities: no edema, no clubbing or cyanosis Neuro: Awake alert oriented x 3, non focal Psych: normal mood - Constitutional Vitals: Temp Pulse Resp BP Pulse Ox 99.2 F 96 H 22 119/69 98 08/30/16 16:02 08/30/16 16:02 08/30/16 16:02 08/30/16 16:02 08/30/16 16:02 General appearance: Present: mild distress Results - Labs CBC & Chem 7: 08/30/16 05:56 08/30/16 11:14 Labs: Laboratory Last Values WBC 4.6 K/mm3 (4.5-11.0) 08/30/16 05:56 RBC 3.84 M/mm3 (3.65-5.03) 08/30/16 05:56 Hgb 10.9 gm/dl (10.1-14.3) 08/30/16 05:56 Hct 33.1 % (30.3-42.9) 08/30/16 05:56 MCV 86 fl (79-97) 08/30/16 05:56 MCH 29 pg (28-32) 08/30/16 05:56 MCHC 33 % (30-34) 08/30/16 05:56 RDW 14.4 % (13.2-15.2) 08/30/16 05:56 Plt Count 147 K/mm3 (140-440) 08/30/16 05:56 Lymph % (Auto) 18.7 % (13.4-35.0) 08/30/16 05:56 [place] % (Auto) 7.4 % (0.0-7.3) H 08/30/16 05:56 Eos % (Auto) 1.9 % (0.0-4.3) 08/30/16 05:56 Baso % (Auto) 0.4 % (0.0-1.8) 08/30/16 05:56 Lymph # 0.9 K/mm3 (1.2-5.4) L 08/30/16 05:56 [place] # 0.3 K/mm3 (0.0-0.8) 08/30/16 05:56 Eos # 0.1 K/mm3 (0.0-0.4) 08/30/16 05:56 Baso # 0.0 K/mm3 (0.0-0.1) 08/30/16 05:56 Seg Neutrophils % 71.6 % (40.0-70.0) H 08/30/16 05:56 Seg Neutrophils # 3.3 K/mm3 (1.8-7.7) 08/30/16 05:56 PT 12.8 Sec. (12.2-14.9) 08/29/16 12:06 INR 0.97 (0.87-1.13) 08/29/16 12:06 APTT 25.5 Sec. (24.2-36.6) 08/29/16 12:06 POC ABG pH 7.426 (7.35-7.45) 08/29/16 11:14 POC ABG pCO2 35.2 (35-45) 08/29/16 11:14 POC ABG pO2 76 (80-105) L 08/29/16 11:14 POC ABG HCO3 23.1 08/29/16 11:14 POC ABG Total CO2 24 08/29/16 11:14 POC ABG O2 Sat 95 08/29/16 11:14 POC ABG Base Excess -1 08/29/16 11:14 FiO2 21 % 08/29/16 11:14 Sodium 139 mmol/L (137-145) 08/30/16 11:14 Potassium 3.2 mmol/L (3.6-5.0) L 08/30/16 05:56 Chloride 99.5 mmol/L (98-107) 08/30/16 05:56 Carbon Dioxide 24 mmol/L (22-30) 08/30/16 05:56 Anion Gap 19 mmol/L 08/30/16 05:56 BUN 21 mg/dL (7-17) H 08/30/16 05:56 Creatinine 1.4 mg/dL (0.7-1.2) H 08/30/16 11:14 Estimated GFR 43 ml/min 08/30/16 05:56 BUN/Creatinine Ratio 13.12 % 08/30/16 05:56 Glucose 120 mg/dL (65-100) H 08/30/16 05:56 Lactic Acid 1.0 mmol/L (0.7-2.0) 08/29/16 12:06 Calcium 7.8 mg/dL (8.4-10.2) L 08/30/16 05:56 Magnesium 1.9 mg/dL (1.7-2.3) 08/29/16 12:06 Total Bilirubin 0.3 mg/dL (0.1-1.2) 08/30/16 05:56 Direct Bilirubin < 0.2 mg/dL (0-0.2) 08/29/16 12:06 Indirect Bilirubin 0.1 mg/dL 08/29/16 12:06 AST 30 units/L (5-40) 08/30/16 05:56 ALT 31 units/L (7-56) 08/30/16 05:56 Alkaline Phosphatase 59 units/L (35-129) 08/30/16 05:56 Total Creatine Kinase 68 units/L (30-135) 08/29/16 12:06 CK-MB (CK-2) < 1.0 ng/mL (0.0-4.0) 08/29/16 12:06 CK-MB (CK-2) Rel Index 1.4 (0-4) 08/29/16 12:06 Troponin T < 0.010 ng/mL (0.00-0.029) 08/29/16 12:06 NT-Pro-B Natriuret Pep 129.9 pg/mL (0-450) 08/29/16 12:06 Total Protein 6.8 g/dL (6.3-8.2) 08/30/16 05:56 Albumin 3.6 g/dL (3.9-5) L 08/30/16 05:56 Albumin/Globulin Ratio 1.1 % 08/30/16 05:56 Urine Color Straw (Yellow) 08/29/16 12:20 Urine Turbidity Clear (Clear) 08/29/16 12:20 Urine pH 6.0 (5.0-7.0) 08/29/16 12:20 Ur Specific [place] 1.008 (1.003-1.030) 08/29/16 12:20 Urine Protein <15 mg/dl mg/dL (Negative) 08/29/16 12:20 Urine Glucose (UA) Neg mg/dL (Negative) 08/29/16 12:20 Urine Ketones Neg mg/dL (Negative) 08/29/16 12:20 Urine Blood Sm (Negative) 08/29/16 12:20 Urine Nitrite Neg (Negative) 08/29/16 12:20 Urine Bilirubin Neg (Negative) 08/29/16 12:20 Urine Urobilinogen < 2.0 mg/dL (<2.0) 08/29/16 12:20 Ur Leukocyte Esterase Neg (Negative) 08/29/16 12:20 Urine WBC (Auto) < 1.0 /HPF (0.0-6.0) 08/29/16 12:20 Urine RBC (Auto) 2.0 /HPF (0.0-6.0) 08/29/16 12:20 U Epithel Cells (Auto) 1.0 /HPF (0-13.0) 08/29/16 12:20 Urine Creatinine 53.7 mg/dL (0.1-20.0) H 08/30/16 05:30 Urine Sodium 47 mEq/L 08/30/16 05:30 Fraction Sodium Excret 0.7 08/30/16 05:30 Urine Potassium 12.20 mEq/L 08/30/16 05:30 Urine HCG, Qual Negative (Negative) 08/29/16 12:20 Urine Opiates Screen Presumptive negative 08/29/16 12:20 Urine Methadone Screen Presumptive negative 08/29/16 12:20 Ur Barbiturates Screen Presumptive negative 08/29/16 12:20 Ur Phencyclidine Scrn Presumptive negative 08/29/16 12:20 Ur Amphetamines Screen Presumptive positive 08/29/16 12:20 U Benzodiazepines Scrn Presumptive negative 08/29/16 12:20 Urine Cocaine Screen Presumptive negative 08/29/16 12:20 U Marijuana (THC) Screen Presumptive negative 08/29/16 12:20 Drugs of Abuse Note Disclamer 08/29/16 12:20
[2016-08-31] MEDS: NACL 0.9% 1000 ML 1,000 ML IV SCH (00:57)
--- NOTE | 2016-08-31 01:05 | Cat Scan Report ---
FINAL REPORT PROCEDURE: CT CHEST WO CON TECHNIQUE: Computerized axial tomography of the chest was performed without contrast material. This study is performed without intravenous contrast and the sensitivity for pathology, including neoplasms, adenopathy, abscess, pulmonary embolism and aortic dissection, is reduced. HISTORY: pneumonia COMPARISON: No prior studies are available for comparison. TECHNICAL QUALITY: Satisfactory. FINDINGS: Heart and pericardium: Normal. Thoracic aorta: Normal. Pulmonary vasculature: Normal. Lymph nodes: No enlarged thoracic lymph nodes. Lungs: The lungs are clear. No infiltrate, effusion or pneumothorax. Central airway is patent. Pleural space: Slight pleural thickening in the dependent portion of both lower lungs.. Musculoskeletal structures: No significant abnormality. Upper abdominal structures: There are numerous areas of hypoattenuation throughout the liver, these measure to 3.5 centimeters. Multiple cysts are suspected. This is not fully evaluated on this study.. IMPRESSION: There is no evidence acute infiltrate or effusion. Minimal pleural thickening of both lower lungs. Numerous areas of hypoattenuation throughout the portions of the liver imaged, multiple cysts are suspected. The liver is not fully evaluated on this study..
--- NOTE | 2016-08-31 01:26 | Cat Scan Report ---
FINAL REPORT PROCEDURE: CT ABDOMEN PELVIS WO CON TECHNIQUE: Computerized axial tomography of the abdomen and pelvis was performed without intravenous contrast. This study is performed without intravascular contrast material and its sensitivity for abdominal and pelvic pathology, including neoplasms, inflammation, abscess, free fluid, thrombosis, arterial dissection and infarction, is reduced compared with a contrast enhanced study. HISTORY: pneumonia, abdominal pain COMPARISON: No prior studies are available for comparison. FINDINGS: Visualized lower thorax: Slight pleural thickening bilateral lower lungs. Liver: Liver size is normal. There are numerous areas hypoattenuation throughout liver, the largest areas in the right lobe of the liver near the dome of the liver measure up to 3 centimeters. Multiple cysts are suspected. No prior studies are available for review with this examination.. Spleen: Normal size and attenuation. Gallbladder and biliary system: Normal. Pancreas: Normal. Adrenals: Normal. Kidneys: There are numerous cysts identified on the kidneys. Polycystic renal disease is suspected. No hydronephrosis. The ureters have a normal course to the urinary bladder. No ureteral obstruction is seen. Tiny calcifications identified in the corticomedullary region of the kidneys measure up to 2 millimeters.. GI tract: The stomach is normal. A small hiatal hernia is identified. The small bowel has a normal caliber. No obstruction is seen. The oral contrast does reach the colon without difficulty. The cecum and appendix region are normal. The colon is normal.. Lymph nodes and mesentery: Normal. Vasculature: Normal. Bladder: Normal. Reproductive organs: The uterus is slightly enlarged. Fibroid formation is possible. There appears to be dominant cyst on the left ovary this measures approximately 2.5 centimeters.. Peritoneum: No free fluid. Musculoskeletal structures: No significant abnormality. Other: None. IMPRESSION: There is no evidence of intestinal or urinary tract obstruction. No ileus or enteritis. Polycystic kidney disease is identified bilaterally. There are some complicated cysts identified. Numerous small renal calculi are noted. Multiple cysts identified throughout the liver. Slightly enlarged uterus, fibroid formation is possible. Dominant 2.5 centimeter cyst left ovary is suspected as described..
[2016-08-31] MEDS: DUONEB 0.5 MG-3 MG/3 ML SOLN IH SCH ×3 (03:07→13:50)
[2016-08-31 05:24] LABS: Hematocrit 29.9 % (30.3-42.9); Hemoglobin 9.9 gm/dl (10.1-14.3); Mean Corpuscular HGB Conc 33 % (30-34); Mean Corpuscular Hemoglobin 29 pg (28-32); Mean Corpuscular Volume 88 fl (79-97); White Blood Count 4.1 K/mm3 (4.5-11.0)
[2016-08-31 05:55] LABS: BUN/Creatinine Ratio 14.61; Calcium 7.5 mg/dL (8.4-10.2); Chloride 106.2 mmol/L (98-107); Potassium 3.8 mmol/L (3.6-5.0)
[2016-08-31 06:01] LABS: Platelet Count 147 K/mm3 (140-440)
[2016-08-31] MEDS: PHENERGAN/CODEINE 6.25-10 MG/5ML PO SCH (06:33)
--- NOTE | 2016-08-31 08:55 | Progress Note ---
Assessment and Plan Impression * Renal insufficiency. Most likely acute or chronic. Acute component probably prerenal * Influenza * Hypertension * Hypokalemia * Multiple bilateral cysts. Possible polycystic kidney disease Recommendations * Her urine fractional excretion of sodium is 0.7%. * Her renal function seems to be improving . Continue IV hydration. Shall reduce the rate of IV fluid * Her urine shows a few red cells. Her renal ultrasound showed multiple cysts bilaterally. Follow-up results of vasculitis workup * Avoid nephrotoxins * She has multiple bilateral renal cysts and also cysts in her liver. Suspect underlying polycystic kidney disease Subjective Date of service: 08/31/16 Interval history: Patient is comfortable today. She does complain of some pleuritic chest pain from coughing. Denies any shortness of breath. No nausea or vomiting Objective - Vital Signs Vital signs: Vital Signs - 12hr 08/30/16 08/30/16 08/30/16 22:00 22:50 23:00 Temperature 98.3 F Pulse Rate 83 Pulse Rate [ 83 Right Radial] Respiratory 18 Rate Respiratory 18 Rate [Chest] Blood Pressure 118/75 Blood Pressure 118/75 [Right Arm] O2 Sat by Pulse 100 Oximetry - General Appearance General appearance: well-developed, well-nourished, appears stated age EENT: PERRL, mucous membranes moist Neck: no JVD, no thyromegaly, no carotid bruit, supple Respiratory: Present: Clear to Ascultation, Ronchi (few scattered rhonchi) Cardiology: regular, normal heart rate, S1S2, no murmurs Gastrointestinal: normal, normoactive bowel sounds Integumentary: no rash, warm and dry, other (no edema) - Lab 08/31/16 04:54 08/31/16 04:54 Most recent lab results Calcium 7.5 mg/dL (8.4-10.2) L 08/31/16 04:54 Magnesium 1.9 mg/dL (1.7-2.3) 08/29/16 12:06 Urine Creatinine 53.7 mg/dL (0.1-20.0) H 08/30/16 05:30 Urine Sodium 47 mEq/L 08/30/16 05:30
--- NOTE | 2016-08-31 10:16 | Discharge Summary ---
Providers - Providers Date of Admission: 08/29/16 15:59 Date of discharge: 08/31/16 Attending physician: NAHOMY HERNÁNDEZ MD 08/29/16 16:06 Consult to Physician [CONS] Routine Consulting Provider: JULIETTE PEREZ Reason For Exam: fever Place consult to:: DR. PEREZ Notified:: [facility] Phone number called:: [phone] Was contact made?: Yes If yes, spoke with:: MARY LOU Time called:: 19:06 Comment:: PAT NOTIFIED Primary care physician: DEBRA NEVAREZ Hospitalization Condition: Stable Disposition: DISCHARGED TO HOME OR SELFCARE Time spent for discharge: 35 mins Core Measure Documentation - Palliative Care Palliative Care/ Comfort Measures: Not Applicable - Core Measures Any of the following diagnoses?: none - VTE Discharge Requirements Deep Vein Thrombosis/Pulmonary Embolism Present on Admission: No Exam - Constitutional Vitals: Temp Pulse Resp BP Pulse Ox 98.1 F 83 20 119/84 100 08/31/16 08:00 08/31/16 08:27 08/31/16 08:27 08/31/16 08:00 08/31/16 08:17 Plan Activity: advance as tolerated, fall precautions Diet: low fat Special Instructions: record daily BP diary Follow up with: DEBRA NEVAREZ MD [Primary Care Provider] - 3-5 Days MONA HOLT MD [Staff Physician] - 7 Days Prescriptions: Oseltamivir [Tamiflu] 75 mg PO QDAY #7 capsule
[2016-08-31] MEDS: celeXA PO SCH (10:42)
[2016-08-31] MEDS: NORVASC PO SCH (10:42)
[2016-08-31] MEDS: ALDACTONE PO SCH (10:42)
[2016-08-31] MEDS: THALITONE PO SCH (10:42)
[2016-08-31] MEDS: TENORMIN PO SCH (10:44)
[2016-08-31] MEDS: ZESTRIL PO SCH (10:44)
[2016-08-31 15:53] VITALS: BP 123/76
[2016-08-31] MEDS ORDERED: LEVAQUIN PO SCH (22:00)
== END 2016-08-31 17:20 | disposition home or self-care (01) | DRG 682 ==
LOC: ED 08:39 → 3A 15:59
PROVIDERS: ADMIT Internal Medicine; ATTEND Internal Medicine
PROC: 4A033R1 Measurement of Arterial Saturation, Peripheral, Percutaneous Approach (ICD-10-PCS; principal; 2016-08-29)
DX: N17.9 Acute kidney failure, unspecified (principal); J18.9 Pneumonia, unspecified organism; J10.1 Influenza due to other identified influenza virus with other respiratory manifestations; E87.2 Acidosis; E28.2 Polycystic ovarian syndrome; R50.9 Fever, unspecified; E87.6 Hypokalemia; I10 Essential (primary) hypertension; E66.9 Obesity, unspecified; Z68.37 Body mass index [BMI] 37.0-37.9, adult
CPT/HCPCS: 36415; 71020; 71250; 74176; 76770; 80048; 80053; 80074; 80307; 81001; 81025; 82088; 82140; 82550; 82553; 82565; 82570; 82803; 83735; 83880; 84133; 84295; 84300; 84484; 85025; 85027; 85610; 85730; 87040; 87400; 93005; 93010; 94640; 96365; 96372; 96375; J1650; J1956; J2270; J2405; J7030

== ENCOUNTER 2017-08-14 08:03 | Emergency (ER) | payer MEDICAID ==
[2017-08-14 08:12] VITALS: BP 164/88
--- NOTE | 2017-08-14 08:54 | Emergency Department Report ---
<MICHAEL WHITE - Last Filed: 08/14/17 12:40> ED General Adult HPI - General Chief complaint: Pain General Stated complaint: BACK/SHOULDER PAIN/SWOLLEN LEGS Time Seen by Provider: 08/14/17 08:17 Source: patient Mode of arrival: Ambulatory Limitations: No Limitations - History of Present Illness Initial comments: This is a 42-year-old female nontoxic, well nourished in appearance, no acute signs of distress presents to the ED with c/o of left shoulder pain and bilateral feet/ankle swelling x1 week. Patient denies any trauma to the extremities. Patient describes shoulder pain as aching with level of 8/10. Patient stated she wake up with left shoulder pain aching and is worsening. Patient stated she has kidney disease but denies any heart failure. Patient stated symptoms of feet/ankle swelling decreases over night and when laying but increases during waking. Patient denies any chest pain, shortness of breath, fever, chills, nausea, vomiting, headache or stiff neck. Patient denies any calf pain or calf tenderness. Patient is also complaining of acute on chronic intermittent pain at the umbilicus area from scar tissue status post hernia repair done 2011. Patient denies any drug allergies. Past medical history includes hypertension, psychiatric, seizures, PTSD, and repair, and renal disease. -: week(s) (1) Location: left, upper extremity, lower extremity Radiation: non-radiation Severity scale (0 -10): 8 Quality: aching Consistency: constant Improves with: none Worsens with: none Associated Symptoms: denies other symptoms. denies: confusion, chest pain, cough, diaphoresis, fever/chills, headaches, loss of appetite, malaise, nausea/ vomiting, rash, seizure, shortness of breath, syncope, weakness Treatments Prior to Arrival: none - Related Data Home Medications Medication Instructions Recorded Confirmed Last Taken Citalopram [Celexa] 20 mg PO DAILY 06/06/13 11/05/16 05/09/14 Dextroamphetamine/Amphetamine 10 mg PO DAILY PRN 05/09/14 11/05/16 Unknown [Adderall 10 mg Tablet] Lisinopril [Zestril TAB] 20 mg PO QDAY 05/09/14 11/05/16 05/09/14 Spironolactone [Aldactone] 25 mg PO DAILY 05/09/14 11/05/16 05/09/14 clonazePAM [KlonoPIN] 1 mg PO BID PRN 05/09/14 11/05/16 05/09/14 Previous Rx's Medication Instructions Recorded Last Taken Type Cyclobenzaprine [Flexeril 10 MG 10 mg PO TID PRN #14 tablet 05/09/14 Unknown Rx TAB] Oseltamivir [Tamiflu] 75 mg PO QDAY #7 capsule 08/31/16 Unknown Rx Acetaminophen/Codeine [Tylenol 1 tab PO Q6H PRN #14 tab 11/05/16 Unknown Rx /Codeine # 3 tab] Amoxicillin/K Clav Tab [Augmentin 1 tab PO Q12HR 10 Days tab 11/05/16 Unknown Rx 875 mg] Atenolol [Tenormin] 100 mg PO DAILY #30 tab 11/05/16 Unknown Rx Butalb/Acetamin/Caff 50-325-40 2 tab PO Q6H PRN #14 tablet 11/05/16 Unknown Rx [Fioricet] amLODIPine [Norvasc] 10 mg PO DAILY #30 tablet 11/05/16 Unknown Rx Cyclobenzaprine [Flexeril] 10 mg PO QHS PRN #7 tablet 08/14/17 Unknown Rx Ibuprofen [Motrin] 600 mg PO Q8H PRN #30 tablet 08/14/17 Unknown Rx Allergies Allergy/AdvReac Type Severity Reaction Status Date / Time No Known Allergies Allergy Verified 01/10/14 08:47 ED Review of Systems ROS: Stated complaint: BACK/SHOULDER PAIN/SWOLLEN LEGS Other details as noted in HPI Constitutional: denies: chills, fever Eyes: denies: eye pain, eye discharge, vision change ENT: denies: ear pain, throat pain Respiratory: denies: cough, shortness of breath, wheezing Cardiovascular: denies: chest pain, palpitations Endocrine: no symptoms reported Gastrointestinal: denies: abdominal pain, nausea, diarrhea Genitourinary: denies: urgency, dysuria, discharge Musculoskeletal: arthralgia. denies: back pain, joint swelling Skin: denies: rash, lesions Neurological: denies: headache, weakness, paresthesias Psychiatric: denies: anxiety, depression Hematological/Lymphatic: denies: easy bleeding, easy bruising ED Past Medical Hx - Past Medical History Previous Medical History?: Yes Hx Hypertension: Yes Hx Heart Attack/AMI: No Hx Congestive Heart Failure: No Hx Deep Vein Thrombosis: No Hx Renal Disease: No Hx Seizures: Yes Hx Kidney Stones: No Hx Psychiatric Treatment: Yes (depression) Hx Tuberculosis: No Hx HIV: No Additional medical history: PTSD - Surgical History Hx Coronary Stent: No Hx Pacemaker: No Hx Internal Defibrillator: No Additional Surgical History: hernia repair - Social History Smoking Status: Never Smoker Substance Use Type: None - Medications Home Medications: Home Medications Medication Instructions Recorded Confirmed Last Taken Type Citalopram [Celexa] 20 mg PO DAILY 06/06/13 11/05/16 05/09/14 History Cyclobenzaprine [Flexeril 10 MG 10 mg PO TID PRN #14 tablet 05/09/14 11/05/16 Unknown Rx TAB] Dextroamphetamine/Amphetamine 10 mg PO DAILY PRN 05/09/14 11/05/16 Unknown History [Adderall 10 mg Tablet] Lisinopril [Zestril TAB] 20 mg PO QDAY 05/09/14 11/05/16 05/09/14 History Spironolactone [Aldactone] 25 mg PO DAILY 05/09/14 11/05/16 05/09/14 History clonazePAM [KlonoPIN] 1 mg PO BID PRN 05/09/14 11/05/16 05/09/14 History Oseltamivir [Tamiflu] 75 mg PO QDAY #7 capsule 08/31/16 11/05/16 Unknown Rx Acetaminophen/Codeine [Tylenol 1 tab PO Q6H PRN #14 tab 11/05/16 Unknown Rx /Codeine # 3 tab] Amoxicillin/K Clav Tab [Augmentin 1 tab PO Q12HR 10 Days tab 11/05/16 Unknown Rx 875 mg] Atenolol [Tenormin] 100 mg PO DAILY #30 tab 11/05/16 Unknown Rx Butalb/Acetamin/Caff 50-325-40 2 tab PO Q6H PRN #14 tablet 11/05/16 Unknown Rx [Fioricet] amLODIPine [Norvasc] 10 mg PO DAILY #30 tablet 11/05/16 Unknown Rx Cyclobenzaprine [Flexeril] 10 mg PO QHS PRN #7 tablet 08/14/17 Unknown Rx Ibuprofen [Motrin] 600 mg PO Q8H PRN #30 tablet 08/14/17 Unknown Rx ED Physical Exam - General Limitations: No Limitations General appearance: alert, in no apparent distress - Head Head exam: Present: atraumatic, normocephalic - Eye Eye exam: Present: normal appearance, PERRL, EOMI Pupils: Present: normal accommodation - ENT ENT exam: Present: normal exam, normal orophraynx, mucous membranes moist, TM's normal bilaterally, normal external ear exam - Neck Neck exam: Present: normal inspection, full ROM. Absent: tenderness, meningismus, lymphadenopathy, thyromegaly - Respiratory Respiratory exam: Present: normal lung sounds bilaterally. Absent: respiratory distress, wheezes, rales, rhonchi, stridor, chest wall tenderness, accessory muscle use, decreased breath sounds, prolonged expiratory - Cardiovascular Cardiovascular Exam: Present: regular rate, normal rhythm, normal heart sounds. Absent: irregular rhythm, systolic murmur, diastolic murmur, rubs, gallop - GI/Abdominal GI/Abdominal exam: Present: soft, normal bowel sounds, other (scar tissue near umbilicus status post hernia). Absent: distended, tenderness, guarding, rebound , rigid, diminished bowel sounds - Expanded GI/Abdominal Exam Expanded GI/Abdominal exam: Absent: psoas sign, obturator sign, heel tap sign, Au's sign, Rovsing's sign, tenderness at Mcburney's Point, ascites - Rectal Rectal exam: Present: deferred - Extremities Exam Extremities exam: Present: normal inspection, full ROM, normal capillary refill , pedal edema. Absent: tenderness, joint swelling, calf tenderness - Expanded Upper Extremity Exam Left General: Present: normal inspection Shoulder Exam: Present: normal inspection, full ROM, tenderness. Absent: swelling, abrasion, laceration, ecchymosis, deformity, crepidus, dislocation, erythema, tenderness over AC joint Upper Arm exam: Present: normal inspection, full ROM. Absent: tenderness, swelling, abrasion, laceration, ecchymosis, deformity, crepidus, dislocation, erythema Elbow exam: Present: normal inspection, full ROM. Absent: tenderness, swelling , abrasion, laceration, ecchymosis, deformity, crepidus, dislocation, erythema, effusion, pain w/ pronation/supination, tenderness over radial head Forearm Wrist exam: Present: normal inspection, full ROM. Absent: tenderness, swelling, abrasion, laceration, ecchymosis, deformity, crepidus, dislocation, erythema, tenderness over anatomical snuff box, pain with axial thumb loading Hand Wrist exam: Present: normal inspection, full ROM. Absent: tenderness, swelling, abrasion, laceration, ecchymosis, deformity, crepidus, dislocation, erythema, amputation, nail avulsion, subungual hematoma Neuro motor exam: Present: wrist extension intact, thumb opposition intact, thumb IP flexion intact, thumb adduction intact, fingers 2-5 abduction intact Neurosensory exam: Present: 2-point discrimination, radial nerve intact, ulnar nerve intact, median nerve intact Vascular: Present: vascular compromise, normal capillary refill, radial pulse, brachial pulse, ulnar pulse - Expanded Lower Extremity Exam Left Hip exam: Present: normal inspection (bilateral exam), full ROM Upper Leg exam: Present: normal inspection (bilateral exam), full ROM Knee exam: Present: normal inspection (bilateral exam), full ROM Lower Leg exam: Present: normal inspection (bilateral exam), full ROM. Absent: tenderness, swelling, abrasion, laceration, ecchymosis, deformity, crepidus, dislocation, erythema, palpable cord, Kaylee's sign Ankle exam: Present: normal inspection (bilateral exam), full ROM, swelling (2+ edema). Absent: tenderness, abrasion, laceration, ecchymosis, deformity, crepidus, dislocation, erythema, anterior draw sign Foot/Toe exam: Present: normal inspection (bilateral exam), full ROM, swelling ( 2+ edema). Absent: tenderness, abrasion, laceration, ecchymosis, deformity, crepidus, dislocation, erythema, amputation, puncture wound, foreign body, calcaneal tenderness, tenderness at base of 5th metatarsal, nail avulsion, subungual hematoma Neuro vascular tendon exam: Present: no vascular compromise (bilateral exam). Absent: pulse deficit, abnormal cap refill, motor deficit, sensory deficit, tendon deficit, extremity cold to touch, pallor, abnormal 2-point discrimination , decreased fine/light touch, foot drop, peroneal nerve deficit, significant pain with passive ROM of distal joint Gait: Positive: observed and normal 1 - 2+ edema 2 - 2+ edema - Back Exam Back exam: Present: normal inspection, full ROM, paraspinal tenderness (left paracervical region). Absent: tenderness, CVA tenderness (R), CVA tenderness (L ), muscle spasm, vertebral tenderness, rash noted - Neurological Exam Neurological exam: Present: alert, oriented X3, CN II-XII intact, normal gait, reflexes normal - Psychiatric Psychiatric exam: Present: normal affect, normal mood - Skin Skin exam: Present: warm, dry, intact, normal color. Absent: rash - Other Other exam information: Negative calf pain, tenderness, or swelling noted. ED Course Vital Signs 08/14/17 08:08 Temperature 98.6 F Pulse Rate 90 Respiratory 16 Rate Blood Pressure 164/88 O2 Sat by Pulse 100 Oximetry - Reevaluation(s) Reevaluation #1: 08/14/17 09:01 Patient is speaking in full sentences with no signs of distress noted. ED Medical Decision Making - Lab Data Result diagrams: 08/14/17 09:14 08/14/17 09:14 - Medical Decision Making this is a 42-year-old female that presents with left shoulder muscular strain, bilateral feet/ankle edema, and hypokalema. Patient is stable and was examined by me. X-ray has been obtained within normal limits and dictated radiologist. Labs and UA obtained. Slight hypokalemia and patient received 40 meq of potassium by mouth. Patient was instructed to increase banana intake. EKG obtained with no acute changes and no ST-T abnormalities. Patient is discharged with Flexeril and Motrin. Patient was instructed not to operate any machinery while taking Flexeril due to drowsiness. At time of discharge, the patient does not seem toxic or ill in appearance. No acute signs of distress noted. Patient agrees to discharge treatment plan of care. No further questions noted by the patient. Wells criteria for DVT -0 points Low risk group for DVT. Unlikely according to Wells DVT studies. Critical care attestation.: If time is entered above; I have spent that time in minutes in the direct care of this critically ill patient, excluding procedure time. ED Disposition Disposition: DC-01 TO HOME OR SELFCARE Is pt being admited?: No Does the pt Need Aspirin: No Condition: Stable Instructions: Ibuprofen (By mouth), Cyclobenzaprine (By mouth), Muscle Strain ( ED), Hypokalemia (ED) Additional Instructions: Follow-up with a primary care doctor in 3-5 days or if symptoms worsen and continue return to emergency room as soon as possible. Take ibuprofen and Flexeril as prescribed. Do not operate heavy machinery while taking Flexeril due to sedation Prescriptions: Cyclobenzaprine [Flexeril] 10 mg PO QHS PRN #7 tablet PRN Reason: Muscle Spasm Ibuprofen [Motrin] 600 mg PO Q8H PRN #30 tablet PRN Reason: Pain Referrals: PRIMARY CARE,MD [Primary Care Provider] - 3-5 Days CARLOS ANGELO MD [Staff Physician] - 3-5 Days [facility] [Outside] - 3-5 Days [facility] [Outside] - 3-5 Days <PARRISH PORTILLO - Last Filed: 08/14/17 15:35> ED Medical Decision Making - Lab Data Result diagrams: 08/14/17 09:14 08/14/17 09:14
[2017-08-14 09:12] LABS: Bilirubin,Urine NEG (Negative); Blood,Urine NEG (Negative); Color,Urine Straw (Yellow); Protein,Urine <15 mg/dL mg/dL (Negative); Urobilinogen,Urine < 2.0 mg/dL (<2.0)
[2017-08-14 09:29] LABS: Basophils % (Auto) 0.6 % (0.0-1.8); Eosinophils # (Auto) 0.2 K/mm3 (0.0-0.4); Eosinophils % (Auto) 2.6 % (0.0-4.3); Hematocrit 29.6 % (30.3-42.9); Hemoglobin 9.6 gm/dl (10.1-14.3); Lymphocytes # (Auto) 1.5 K/mm3 (1.2-5.4); Lymphocytes % (Auto) 21.8 % (13.4-35.0); Mean Corpuscular HGB Conc 33 % (30-34); Mean Corpuscular Hemoglobin 27 pg (28-32); Mean Corpuscular Volume 83 fl (79-97); Monocytes # (Auto) 0.5 K/mm3 (0.0-0.8); Monocytes % (Auto) 7.9 % (0.0-7.3); Platelet Count 271 K/mm3 (140-440); Red Blood Count 3.58 M/mm3 (3.65-5.03); Red Cell Distribution Width 15.9 % (13.2-15.2)
[2017-08-14 09:48] LABS: Alanine Aminotransferase 22 units/L (7-56); Albumin 3.6 g/dL (3.9-5); BUN/Creatinine Ratio 27; Blood Urea Nitrogen 48 mg/dL (7-17); Calcium 8.4 mg/dL (8.4-10.2); Hemolysis Index 34
[2017-08-14 09:49] LABS: Bilirubin,Direct < 0.2 mg/dL (0-0.2)
[2017-08-14] MEDS ORDERED: K-DUR PO ONE (09:53)
[2017-08-14 10:13] LABS: INR 0.78 (0.87-1.13)
[2017-08-14 10:14] LABS: Partial Thromboplastin Time 26.2 Sec. (24.2-36.6)
--- NOTE | 2017-08-14 10:38 | XRay Report ---
BILATERAL ANKLES, 3 VIEWS History: Swelling. Findings: There appears to be moderate bilateral pedal edema. Normal bone mineralization. No osseous abnormality or joint pathology is detected. Impression: Normal bony structures. Bilateral pedal edema.
== END 2017-08-14 11:58 | disposition home or self-care (01) ==
LOC: ED 08:03
DX: S46.912A Strain of unspecified muscle, fascia and tendon at shoulder and upper arm level, left arm, initial encounter (principal); R60.9 Edema, unspecified; E87.6 Hypokalemia; I10 Essential (primary) hypertension; X58.XXXA Exposure to other specified factors, initial encounter; Y93.89 Activity, other specified; Y92.89 Other specified places as the place of occurrence of the external cause; Y99.8 Other external cause status
CPT/HCPCS: 36415; 80048; 80074; 81001; 83735; 83880; 84703; 85025; 85610; 85730; 93005; 93010

== ENCOUNTER 2017-10-13 11:37 | Outpatient (CLI) | payer MEDICAID ==
[2017-10-13 12:20] LABS: Albumin 3.8 g/dL (3.9-5); Calcium 8.6 mg/dL (8.4-10.2); Uric Acid 5.8 mg/dL (3.5-7.6)
== END 2017-10-13 11:38 | disposition home or self-care (01) ==
LOC: LAB 11:37
DX: R94.4 Abnormal results of kidney function studies (principal)
CPT/HCPCS: 36415; 80048; 82040; 84100; 84550

== ENCOUNTER 2017-10-31 13:22 | Outpatient (CLI) | payer MEDICAID ==
[2017-10-31 13:45] LABS: Hematocrit 31.2 % (30.3-42.9); Hemoglobin 10.5 gm/dl (10.1-14.3); Mean Corpuscular HGB Conc 34 % (30-34); Mean Corpuscular Hemoglobin 27 pg (28-32); Mean Corpuscular Volume 81 fl (79-97); Platelet Count 233 K/mm3 (140-440); Red Blood Count 3.83 M/mm3 (3.65-5.03); Red Cell Distribution Width 16.4 % (13.2-15.2)
[2017-10-31 15:30] LABS: Calcium 8.9 mg/dL (8.4-10.2)
== END 2017-10-31 13:23 | disposition home or self-care (01) ==
LOC: LAB 13:22
DX: E87.6 Hypokalemia (principal); D63.1 Anemia in chronic kidney disease; I10 Essential (primary) hypertension; M10.072 Idiopathic gout, left ankle and foot; F41.9 Anxiety disorder, unspecified; R60.1 Generalized edema; R79.9 Abnormal finding of blood chemistry, unspecified; R94.4 Abnormal results of kidney function studies
CPT/HCPCS: 36415; 80048; 82040; 83970; 84100; 85027

== ENCOUNTER 2018-11-11 13:40 | Emergency (ER) | payer MEDICAID ==
[2018-11-11 14:20] VITALS: BP 155/79
--- NOTE | 2018-11-11 14:24 | Emergency Department Report ---
Blank Doc - Documentation Documentation: 43 y old female presents to ED cc of bilateral ankle and leg swelling sates hx of Polystic Kidney Dz x 15 years, HTN taked BP meds. states heavier and tight with walking labs ordered acc eval
[2018-11-11 14:50] LABS: Basophils # (Auto) 0.1 K/mm3 (0.0-0.1); Basophils % (Auto) 0.9 % (0.0-1.8); Eosinophils # (Auto) 0.2 K/mm3 (0.0-0.4); Eosinophils % (Auto) 3.4 % (0.0-4.3); Hematocrit 30.7 % (30.3-42.9); Hemoglobin 10.3 gm/dl (10.1-14.3); Lymphocytes # (Auto) 1.3 K/mm3 (1.2-5.4); Mean Corpuscular HGB Conc 34 % (30-34); Mean Corpuscular Volume 84 fl (79-97); Monocytes # (Auto) 0.4 K/mm3 (0.0-0.8); Monocytes % (Auto) 6.3 % (0.0-7.3); Platelet Count 136 K/mm3 (140-440); Red Blood Count 3.66 M/mm3 (3.65-5.03); Red Cell Distribution Width 17.7 % (13.2-15.2)
[2018-11-11 15:01] LABS: Alanine Aminotransferase 24 units/L (7-56); Albumin 3.5 g/dL (3.9-5); BUN/Creatinine Ratio 9; Blood Urea Nitrogen 25 mg/dL (7-17); Calcium 8.5 mg/dL (8.4-10.2); Hemolysis Index 46
--- NOTE | 2018-11-11 16:09 | Emergency Department Report ---
ED General Adult HPI - General Chief complaint: Extremity Injury, Lower Stated complaint: LEG SWELLING Time Seen by Provider: 11/11/18 14:17 Source: patient Mode of arrival: Ambulatory Limitations: No Limitations - History of Present Illness Initial comments: Ms. Malcolm is a very pleasant 43 yo female with hx of gout, chronic leg swelling, polycystic kidney disease, renal insufficiency who presents with leg swelling. She recently recovered from gout. She wanted to make sure her kidney function has not worsened. 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 She uses compression stockings some of the time. -: Gradual, year(s) (bilateral leg swelling intermittently for several years) Location: right, lower extremity Consistency: constant Improves with: rest, other (elevation in bed) - Related Data Home Medications Medication Instructions Recorded Confirmed Last Taken Citalopram [Celexa] 20 mg PO DAILY 06/06/13 11/05/16 05/09/14 Dextroamphetamine/Amphetamine 10 mg PO DAILY PRN 05/09/14 11/05/16 Unknown [Adderall 10 mg Tablet] Lisinopril [Zestril TAB] 20 mg PO QDAY 05/09/14 11/05/16 05/09/14 Spironolactone [Aldactone] 25 mg PO DAILY 05/09/14 11/05/16 05/09/14 clonazePAM [KlonoPIN] 1 mg PO BID PRN 05/09/14 11/05/16 05/09/14 Previous Rx's Medication Instructions Recorded Last Taken Type Cyclobenzaprine [Flexeril 10 MG 10 mg PO TID PRN #14 tablet 05/09/14 Unknown Rx TAB] Oseltamivir [Tamiflu] 75 mg PO QDAY #7 capsule 08/31/16 Unknown Rx Acetaminophen/Codeine [Tylenol 1 tab PO Q6H PRN #14 tab 11/05/16 Unknown Rx /Codeine # 3 tab] Amoxicillin/K Clav Tab [Augmentin 1 tab PO Q12HR 10 Days tab 11/05/16 Unknown Rx 875 mg] Butalb/Acetamin/Caff 50-325-40 2 tab PO Q6H PRN #14 tablet 11/05/16 Unknown Rx [Fioricet 50-325-40] Cyclobenzaprine [Flexeril] 10 mg PO QHS PRN #7 tablet 03/04/18 Unknown Rx Ibuprofen [Motrin] 600 mg PO Q8H PRN #30 tablet 08/14/17 Unknown Rx Atenolol [Tenormin] 100 mg PO DAILY #30 tab 04/17/18 Unknown Rx amLODIPine [Norvasc] 10 mg PO DAILY #30 tablet 04/17/18 Unknown Rx hydrALAZINE [Apresoline TAB] 25 mg PO QDAY #30 tablet 04/17/18 Unknown Rx predniSONE [Prednisone] 50 mg PO DAILY #5 tablet 04/17/18 Unknown Rx traMADol [Ultram] 50 mg PO Q6HR PRN #7 tablet 04/17/18 Unknown Rx Allergies Allergy/AdvReac Type Severity Reaction Status Date / Time lisinopril Allergy Angioedema Verified 11/11/18 13:43 ED Review of Systems ROS: Stated complaint: LEG SWELLING Other details as noted in HPI Comment: All other systems reviewed and negative Constitutional: denies: fever, malaise Respiratory: denies: cough, shortness of breath Cardiovascular: denies: chest pain ED Past Medical Hx - Past Medical History Previous Medical History?: Yes Hx Hypertension: Yes Hx Heart Attack/AMI: No Hx Congestive Heart Failure: No Hx Deep Vein Thrombosis: No Hx Renal Disease: Yes (PKD) Hx Arthritis: Yes Hx Seizures: Yes Hx Kidney Stones: No Hx Psychiatric Treatment: Yes (depression) Hx Tuberculosis: No Hx HIV: No Additional medical history: PTSD - Surgical History Past Surgical History?: Yes Hx Coronary Stent: No Hx Pacemaker: No Hx Internal Defibrillator: No Additional Surgical History: hernia repair. x2. ovarian surgery - Social History Smoking Status: Never Smoker Substance Use Type: None - Medications Home Medications: Home Medications Medication Instructions Recorded Confirmed Last Taken Type Citalopram [Celexa] 20 mg PO DAILY 06/06/13 11/05/16 05/09/14 History Cyclobenzaprine [Flexeril 10 MG 10 mg PO TID PRN #14 tablet 05/09/14 11/05/16 Unknown Rx TAB] Dextroamphetamine/Amphetamine 10 mg PO DAILY PRN 05/09/14 11/05/16 Unknown History [Adderall 10 mg Tablet] Lisinopril [Zestril TAB] 20 mg PO QDAY 05/09/14 11/05/16 05/09/14 History Spironolactone [Aldactone] 25 mg PO DAILY 05/09/14 11/05/16 05/09/14 History clonazePAM [KlonoPIN] 1 mg PO BID PRN 05/09/14 11/05/16 05/09/14 History Oseltamivir [Tamiflu] 75 mg PO QDAY #7 capsule 08/31/16 11/05/16 Unknown Rx Acetaminophen/Codeine [Tylenol 1 tab PO Q6H PRN #14 tab 11/05/16 Unknown Rx /Codeine # 3 tab] Amoxicillin/K Clav Tab [Augmentin 1 tab PO Q12HR 10 Days tab 11/05/16 Unknown Rx 875 mg] Butalb/Acetamin/Caff 50-325-40 2 tab PO Q6H PRN #14 tablet 11/05/16 Unknown Rx [Fioricet 50-325-40] Cyclobenzaprine [Flexeril] 10 mg PO QHS PRN #7 tablet 08/14/17 Unknown Rx Ibuprofen [Motrin] 600 mg PO Q8H PRN #30 tablet 08/14/17 Unknown Rx Atenolol [Tenormin] 100 mg PO DAILY #30 tab 04/17/18 Unknown Rx amLODIPine [Norvasc] 10 mg PO DAILY #30 tablet 04/17/18 Unknown Rx hydrALAZINE [Apresoline TAB] 25 mg PO QDAY #30 tablet 04/17/18 Unknown Rx predniSONE [Prednisone] 50 mg PO DAILY #5 tablet 04/17/18 Unknown Rx traMADol [Ultram] 50 mg PO Q6HR PRN #7 tablet 04/17/18 Unknown Rx ED Physical Exam - General Limitations: No Limitations General appearance: alert, in no apparent distress - Head Head exam: Present: atraumatic, normocephalic - Eye Eye exam: Present: normal appearance - ENT ENT exam: Present: mucous membranes moist - Neck Neck exam: Present: normal inspection, full ROM. Absent: tenderness, meningismus - Respiratory Respiratory exam: Present: normal lung sounds bilaterally. Absent: respiratory distress, wheezes, rales, rhonchi - Cardiovascular Cardiovascular Exam: Present: regular rate, normal rhythm, normal heart sounds. Absent: systolic murmur, diastolic murmur, rubs, gallop - GI/Abdominal GI/Abdominal exam: Present: soft, normal bowel sounds. Absent: distended, tenderness, guarding, rebound - Extremities Exam Extremities exam: Present: pedal edema (bilateral nonpitting) - Back Exam Back exam: Present: normal inspection - Neurological Exam Neurological exam: Present: alert, oriented X3 - Psychiatric Psychiatric exam: Present: normal affect, normal mood - Skin Skin exam: Present: warm, dry, intact, normal color. Absent: rash ED Course Vital Signs 11/11/18 14:17 Temperature 98.4 F Pulse Rate 83 Respiratory 18 Rate Blood Pressure 155/79 O2 Sat by Pulse 100 Oximetry ED Medical Decision Making - Lab Data Result diagrams: 11/11/18 14:34 11/11/18 14:34 - Medical Decision Making chronic leg swelling, kidney function at bedside Critical care attestation.: If time is entered above; I have spent that time in minutes in the direct care of this critically ill patient, excluding procedure time. ED Disposition Clinical Impression: Renal insufficiency, Polycystic kidney disease, Bilateral leg weakness Disposition: - TO HOME OR SELFCARE Is pt being admited?: No Does the pt Need Aspirin: No Condition: Stable Instructions: Leg Edema (ED), Chronic Kidney Disease (ED)
== END 2018-11-11 16:29 | disposition home or self-care (01) ==
LOC: ED 13:40
DX: Q61.3 Polycystic kidney, unspecified (principal); N28.9 Disorder of kidney and ureter, unspecified; I10 Essential (primary) hypertension; M19.90 Unspecified osteoarthritis, unspecified site; Z88.8 Allergy status to other drugs, medicaments and biological substances; Z79.899 Other long term (current) drug therapy
CPT/HCPCS: 36415; 80053; 85025; 99283

== ENCOUNTER 2018-12-04 15:06 | Emergency (ER) | payer MEDICAID ==
--- NOTE | 2018-12-04 15:20 | Event Note ---
ED Screening Note Date of service: 12/04/18 Time: 15:15 ED Screening Note: 43 y/o female c/o nausea and vomiting time 2 weeks. Generalized pain. Feels Not able eat or drink. This initial assessment/diagnostic orders/clinical plan/treatment(s) is/are subject to change based on patients health status, clinical progression and re- assessment by fellow clinical providers in the ED. Further treatment and workup at subsequent clinical providers discretion. Patient/guardian urged not to elope from the ED as their condition may be serious if not clinically assessed and managed. Initial orders include:
[2018-12-04 16:09] LABS: Basophils # (Auto) 0.1 K/mm3 (0.0-0.1); Basophils % (Auto) 0.8 % (0.0-1.8); Eosinophils # (Auto) 0.2 K/mm3 (0.0-0.4); Eosinophils % (Auto) 2.8 % (0.0-4.3); Hematocrit 33.4 % (30.3-42.9); Hemoglobin 11.2 gm/dl (10.1-14.3); Lymphocytes # (Auto) 1.6 K/mm3 (1.2-5.4); Lymphocytes % (Auto) 20.8 % (13.4-35.0); Mean Corpuscular HGB Conc 34 % (30-34); Mean Corpuscular Volume 83 fl (79-97); Monocytes # (Auto) 0.4 K/mm3 (0.0-0.8); Monocytes % (Auto) 5.8 % (0.0-7.3); Platelet Count 220 K/mm3 (140-440); Red Blood Count 4.01 M/mm3 (3.65-5.03); Red Cell Distribution Width 17.2 % (13.2-15.2)
[2018-12-04] MEDS ORDERED: ZOFRAN ODT PO ONE (16:10)
[2018-12-04 16:18] LABS: Bilirubin,Urine NEG (Negative); Blood,Urine NEG (Negative); Color,Urine Straw (Yellow); HCG Qualitative,Urine Negative (Negative); Urobilinogen,Urine < 2.0 mg/dL (<2.0)
[2018-12-04 16:27] LABS: Alanine Aminotransferase 11 units/L (7-56); Albumin 4.2 g/dL (3.9-5); BUN/Creatinine Ratio 7; Blood Urea Nitrogen 23 mg/dL (7-17); Calcium 9.1 mg/dL (8.4-10.2); Hemolysis Index 9
[2018-12-04] MEDS ORDERED: NACL 0.9% 1000 ML 1,000 ML IV ONE (17:42)
[2018-12-04] MEDS ORDERED: ZOFRAN IV ONE (17:42)
--- NOTE | 2018-12-04 18:41 | Emergency Department Report ---
ED N/V/D HPI - General Chief complaint: Nausea/Vomiting/Diarrhea Stated complaint: N/V/WEAK/NOT EATING Time Seen by Provider: 12/04/18 16:10 Source: patient Mode of arrival: Ambulatory Limitations: No Limitations - History of Present Illness Initial comments: Patient is a 43-year-old female who presents emergency Department with complaints of nausea and vomiting that began 2 weeks ago. She has occasional, intermittent diarrhea. She denies any abdominal pain, dysuria, urinary frequency, hematochezia, hematemesis. She has not seen anyone for this. She has a past medical history of chronic kidney disease due to polycystic kidney disease, bipolar. She states she last saw a research dairy farm supervisor 3 months ago but is not sure who she saw and states that she needs a new one. She has a history of high blood pressure and hasn't been able to keep her medications down. She states she is unable to tolerate by mouth intake. - Related Data Home Medications Medication Instructions Recorded Confirmed Last Taken Citalopram [Celexa] 20 mg PO DAILY 06/06/13 11/05/16 05/09/14 Dextroamphetamine/Amphetamine 10 mg PO DAILY PRN 05/09/14 11/05/16 Unknown [Adderall 10 mg Tablet] Lisinopril [Zestril TAB] 20 mg PO QDAY 05/09/14 11/05/16 05/09/14 Spironolactone [Aldactone] 25 mg PO DAILY 05/09/14 11/05/16 05/09/14 clonazePAM [KlonoPIN] 1 mg PO BID PRN 05/09/14 11/05/16 05/09/14 Previous Rx's Medication Instructions Recorded Last Taken Type Cyclobenzaprine [Flexeril 10 MG 10 mg PO TID PRN #14 tablet 05/09/14 Unknown Rx TAB] Oseltamivir [Tamiflu] 75 mg PO QDAY #7 capsule 08/31/16 Unknown Rx Acetaminophen/Codeine [Tylenol 1 tab PO Q6H PRN #14 tab 11/05/16 Unknown Rx /Codeine # 3 tab] Amoxicillin/K Clav Tab [Augmentin 1 tab PO Q12HR 10 Days tab 11/05/16 Unknown Rx 875 mg] Butalb/Acetamin/Caff 50-325-40 2 tab PO Q6H PRN #14 tablet 11/05/16 Unknown Rx [Fioricet 50-325-40] Cyclobenzaprine [Flexeril] 10 mg PO QHS PRN #7 tablet 08/14/17 Unknown Rx Ibuprofen [Motrin] 600 mg PO Q8H PRN #30 tablet 08/14/17 Unknown Rx Atenolol [Tenormin] 100 mg PO DAILY #30 tab 04/17/18 Unknown Rx amLODIPine [Norvasc] 10 mg PO DAILY #30 tablet 04/17/18 Unknown Rx hydrALAZINE [Apresoline TAB] 25 mg PO QDAY #30 tablet 04/17/18 Unknown Rx predniSONE [Prednisone] 50 mg PO DAILY #5 tablet 04/17/18 Unknown Rx traMADol [Ultram] 50 mg PO Q6HR PRN #7 tablet 04/17/18 Unknown Rx Ondansetron [Zofran Odt] 4 mg PO Q8HR PRN #14 tab.rapdis 12/04/18 Unknown Rx Allergies Allergy/AdvReac Type Severity Reaction Status Date / Time acetaminophen [From Percocet] Allergy Unknown Verified 12/04/18 15:19 lisinopril Allergy Angioedema Verified 12/04/18 15:09 oxycodone [From Percocet] Allergy Unknown Verified 12/04/18 15:19 ED Review of Systems ROS: Stated complaint: N/V/WEAK/NOT EATING Other details as noted in HPI Comment: All other systems reviewed and negative ED Past Medical Hx - Past Medical History Hx Hypertension: Yes Hx Heart Attack/AMI: No Hx Congestive Heart Failure: No Hx Deep Vein Thrombosis: No Hx Renal Disease: Yes (stage 3) Hx Arthritis: Yes Hx Seizures: Yes Hx Kidney Stones: No Hx Psychiatric Treatment: Yes (depression,ADD) Hx Tuberculosis: No Hx HIV: No Additional medical history: PTSD - Surgical History Hx Coronary Stent: No Hx Pacemaker: No Hx Internal Defibrillator: No Additional Surgical History: hernia repair, tubiligation. x2. ovarian surgery - Social History Smoking Status: Never Smoker Substance Use Type: Marijuana - Medications Home Medications: Home Medications Medication Instructions Recorded Confirmed Last Taken Type Citalopram [Celexa] 20 mg PO DAILY 06/06/13 11/05/16 05/09/14 History Cyclobenzaprine [Flexeril 10 MG 10 mg PO TID PRN #14 tablet 05/09/14 11/05/16 Unknown Rx TAB] Dextroamphetamine/Amphetamine 10 mg PO DAILY PRN 05/09/14 11/05/16 Unknown History [Adderall 10 mg Tablet] Lisinopril [Zestril TAB] 20 mg PO QDAY 05/09/14 11/05/16 05/09/14 History Spironolactone [Aldactone] 25 mg PO DAILY 05/09/14 11/05/16 05/09/14 History clonazePAM [KlonoPIN] 1 mg PO BID PRN 05/09/14 11/05/16 05/09/14 History Oseltamivir [Tamiflu] 75 mg PO QDAY #7 capsule 08/31/16 11/05/16 Unknown Rx Acetaminophen/Codeine [Tylenol 1 tab PO Q6H PRN #14 tab 11/05/16 Unknown Rx /Codeine # 3 tab] Amoxicillin/K Clav Tab [Augmentin 1 tab PO Q12HR 10 Days tab 11/05/16 Unknown Rx 875 mg] Butalb/Acetamin/Caff 50-325-40 2 tab PO Q6H PRN #14 tablet 11/05/16 Unknown Rx [Fioricet 50-325-40] Cyclobenzaprine [Flexeril] 10 mg PO QHS PRN #7 tablet 08/14/17 Unknown Rx Ibuprofen [Motrin] 600 mg PO Q8H PRN #30 tablet 08/14/17 Unknown Rx Atenolol [Tenormin] 100 mg PO DAILY #30 tab 04/17/18 Unknown Rx amLODIPine [Norvasc] 10 mg PO DAILY #30 tablet 04/17/18 Unknown Rx hydrALAZINE [Apresoline TAB] 25 mg PO QDAY #30 tablet 04/17/18 Unknown Rx predniSONE [Prednisone] 50 mg PO DAILY #5 tablet 04/17/18 Unknown Rx traMADol [Ultram] 50 mg PO Q6HR PRN #7 tablet 04/17/18 Unknown Rx Ondansetron [Zofran Odt] 4 mg PO Q8HR PRN #14 tab.rapdis 12/04/18 Unknown Rx ED Physical Exam - General Limitations: No Limitations General appearance: alert, in no apparent distress - Head Head exam: Present: atraumatic, normocephalic - Eye Eye exam: Present: normal appearance, PERRL - ENT ENT exam: Present: mucous membranes dry - Respiratory Respiratory exam: Present: normal lung sounds bilaterally. Absent: respiratory distress, wheezes, rales, rhonchi, stridor, chest wall tenderness, accessory muscle use, decreased breath sounds, prolonged expiratory - Cardiovascular Cardiovascular Exam: Present: regular rate, normal rhythm, normal heart sounds. Absent: systolic murmur, diastolic murmur, rubs, gallop - GI/Abdominal GI/Abdominal exam: Present: soft, normal bowel sounds, other (proturbant abdomen, healed surgical scars ). Absent: tenderness, guarding, rebound, rigid - Back Exam Back exam: Absent: CVA tenderness (R), CVA tenderness (L) - Neurological Exam Neurological exam: Present: alert, oriented X3 - Psychiatric Psychiatric exam: Present: normal affect, normal mood - Skin Skin exam: Present: warm, dry, intact ED Course Vital Signs 12/04/18 12/04/18 12/04/18 15:15 18:58 22:40 Temperature 98.8 F Pulse Rate 101 H 75 Respiratory 20 18 17 Rate Blood Pressure 186/113 Blood Pressure 151/88 [Right] O2 Sat by Pulse 98 99 100 Oximetry ED Medical Decision Making - Lab Data Result diagrams: 12/04/18 15:47 12/04/18 15:47 Lab Results 12/04/18 12/04/18 12/04/18 Range/Units 15:28 15:47 15:47 WBC 7.7 (4.5-11.0) K/mm3 RBC 4.01 (3.65-5.03) M/mm3 Hgb 11.2 (10.1-14.3) gm/dl Hct 33.4 (30.3-42.9) % MCV 83 (79-97) fl MCH 28 (28-32) pg MCHC 34 (30-34) % RDW 17.2 H (13.2-15.2) % Plt Count 220 (140-440) K/mm3 Lymph % (Auto) 20.8 (13.4-35.0) % [place] % (Auto) 5.8 (0.0-7.3) % Eos % (Auto) 2.8 (0.0-4.3) % Baso % (Auto) 0.8 (0.0-1.8) % Lymph # 1.6 (1.2-5.4) K/mm3 [place] # 0.4 (0.0-0.8) K/mm3 Eos # 0.2 (0.0-0.4) K/mm3 Baso # 0.1 (0.0-0.1) K/mm3 Seg Neutrophils % 69.8 (40.0-70.0) % Seg Neutrophils # 5.4 (1.8-7.7) K/mm3 Sodium 140 (137-145) mmol/L Potassium 3.7 (3.6-5.0) mmol/L Chloride 105.6 (98-107) mmol/L Carbon Dioxide 21 L (22-30) mmol/L Anion Gap 17 mmol/L BUN 23 H (7-17) mg/dL Creatinine 3.2 H (0.7-1.2) mg/dL Estimated GFR 19 ml/min BUN/Creatinine Ratio 7 % Glucose 90 (65-100) mg/dL POC Glucose 96 (70-105) Calcium 9.1 (8.4-10.2) mg/dL Total Bilirubin < 0.20 (0.1-1.2) mg/dL AST 14 (5-40) units/L ALT 11 (7-56) units/L Alkaline Phosphatase 68 (35-129) units/L Total Protein 7.3 (6.3-8.2) g/dL Albumin 4.2 (3.9-5) g/dL Albumin/Globulin Ratio 1.4 % Lipase (13-60) units/L Urine Color (Yellow) Urine Turbidity (Clear) Urine pH (5.0-7.0) Ur Specific [place] (1.003-1.030) Urine Protein (Negative) mg/dL Urine Glucose (UA) (Negative) mg/dL Urine Ketones (Negative) mg/dL Urine Blood (Negative) Urine Nitrite (Negative) Ur Reducing Substances Urine Bilirubin (Negative) Urine Ictotest Urine Urobilinogen (<2.0) mg/dL Ur Leukocyte Esterase (Negative) Urine WBC (Auto) (0.0-6.0) /HPF Urine RBC (Auto) (0.0-6.0) /HPF U Epithel Cells (Auto) (0-13.0) /HPF Urine HCG, Qual (Negative) 12/04/18 12/04/18 Range/Units 15:47 16:06 WBC (4.5-11.0) K/mm3 RBC (3.65-5.03) M/mm3 Hgb (10.1-14.3) gm/dl Hct (30.3-42.9) % MCV (79-97) fl MCH (28-32) pg MCHC (30-34) % RDW (13.2-15.2) % Plt Count (140-440) K/mm3 Lymph % (Auto) (13.4-35.0) % [place] % (Auto) (0.0-7.3) % Eos % (Auto) (0.0-4.3) % Baso % (Auto) (0.0-1.8) % Lymph # (1.2-5.4) K/mm3 [place] # (0.0-0.8) K/mm3 Eos # (0.0-0.4) K/mm3 Baso # (0.0-0.1) K/mm3 Seg Neutrophils % (40.0-70.0) % Seg Neutrophils # (1.8-7.7) K/mm3 Sodium (137-145) mmol/L Potassium (3.6-5.0) mmol/L Chloride (98-107) mmol/L Carbon Dioxide (22-30) mmol/L Anion Gap mmol/L BUN (7-17) mg/dL Creatinine (0.7-1.2) mg/dL Estimated GFR ml/min BUN/Creatinine Ratio % Glucose (65-100) mg/dL POC Glucose (70-105) Calcium (8.4-10.2) mg/dL Total Bilirubin (0.1-1.2) mg/dL AST (5-40) units/L ALT (7-56) units/L Alkaline Phosphatase (35-129) units/L Total Protein (6.3-8.2) g/dL Albumin (3.9-5) g/dL Albumin/Globulin Ratio % Lipase 51 (13-60) units/L Urine Color Straw (Yellow) Urine Turbidity Clear (Clear) Urine pH 6.0 (5.0-7.0) Ur Specific [place] 1.010 (1.003-1.030) Urine Protein 30 mg/dl (Negative) mg/dL Urine Glucose (UA) 50 (Negative) mg/dL Urine Ketones Neg (Negative) mg/dL Urine Blood Neg (Negative) Urine Nitrite Neg (Negative) Ur Reducing Substances Not Reportable Urine Bilirubin Neg (Negative) Urine Ictotest Not Reportable Urine Urobilinogen < 2.0 (<2.0) mg/dL Ur Leukocyte Esterase Neg (Negative) Urine WBC (Auto) 1.0 (0.0-6.0) /HPF Urine RBC (Auto) 3.0 (0.0-6.0) /HPF U Epithel Cells (Auto) 1.0 (0-13.0) /HPF Urine HCG, Qual Negative (Negative) Vital Signs 12/04/18 12/04/18 12/04/18 15:15 18:58 22:40 Temperature 98.8 F Pulse Rate 101 H 75 Respiratory 20 18 17 Rate Blood Pressure 186/113 Blood Pressure 151/88 [Right] O2 Sat by Pulse 98 99 100 Oximetry - Radiology Data Radiology results: report reviewed PROCEDURE: CT ABDOMEN PELVIS WO CON TECHNIQUE: Computerized axial tomography of the abdomen and pelvis was performed without intravenous contrast. This study is performed without intravascular contrast material and its sensitivity for abdominal and pelvic pathology, including neoplasms, inflammation, abscess, free fluid, thrombosis, arterial dissection and infarction, is reduced compared with a contrast enhanced study. CT DOSE LENGTH PRODUCT: 1732.8 mGycm HISTORY: emesis x 2 weeks, hx of PCKD COMPARISONS: 08/31/2016 . FINDINGS: Visualized lower thorax: No significant abnormality. Liver: Numerous hepatic circumscribed low-attenuation lesions are seen, presumably related to cysts. Spleen: Normal size and attenuation. Gallbladder and biliary system: Gallbladder is present. Pancreas: Normal. Adrenals: Normal. Kidneys: Kidneys are enlarged. Numerous bilateral low density and hyperdense renal cysts are present. There are bilateral punctate renal calculi present. No hydronephrosis or ureteral calculi are seen. GI tract: No bowel obstruction or inflammation. No appendiceal inflammation . Lymph nodes and mesentery: Normal. Vasculature: Normal.. Bladder: Normal. Reproductive organs: Uterus is present. Peritoneum: No free fluid. Musculoskeletal structures: No significant abnormality. Other: There has been prior anterior abdominal wall hernia repair. No recurrent hernia is seen. IMPRESSION: No bowel obstruction or inflammation. Changes of polycystic kidney disease are noted, with numerous bilateral renal cysts and hepatic cysts This document is electronically signed by Xiomara Cherry MD., December 04 2018 10:12:37 PM ET Transcribed By: [facility] Dictated By: XIOMARA CHERRY M.D. Electronically Authenticated By: XIOMARA CHERRY M.D. Signed Date/Time: 12/04/18 2214 - Medical Decision Making Patient is a 43-year-old female who presents emergency Department with complaints of nausea and vomiting that began 2 weeks ago. She has occasional, intermittent diarrhea. She denies any abdominal pain, dysuria, urinary frequency, hematochezia, hematemesis. She has not seen anyone for this. She has a past medical history of chronic kidney disease due to polycystic kidney disease, bipolar. She states she last saw a research dairy farm supervisor 3 months ago but is not sure who she saw and states that she needs a new one. She has a history of high blood pressure and hasn't been able to keep her medications down. She states she is unable to tolerate by mouth intake. no abd tenderness on exam. labs show renal insufficiency, otherwise normal. UA is normal. CT abd pelvis shows No bowel obstruction or inflammation. Changes of polycystic kidney disease are noted, with numerous bilateral renal cysts and hepatic cysts. pt given 1L of fluid and zofran while in the ED. Patient had no further episodes of nausea and vomiting while in the emergency department patient is tolerating by mouth intake. pt given prescription for zofran. advised to please take medication as prescribed as needed. Please drink plenty of fluids. Follow up with your primary care doctor and a research dairy farm supervisor in the next 2-3 days. Return to the emergency room for any new or worsening symptoms. - Differential Diagnosis GERD, gastroenteritis, colitis, PCKD, CKD, SBO Critical care attestation.: If time is entered above; I have spent that time in minutes in the direct care of this critically ill patient, excluding procedure time. ED Disposition Clinical Impression: PCK (polycystic kidney disease), Renal insufficiency Nausea & vomiting Qualifiers: Vomiting type: unspecified Vomiting Intractability: non-intractable Qualified Code(s): R11.2 - Nausea with vomiting, unspecified Disposition: DC-01 TO HOME OR SELFCARE Is pt being admited?: No Does the pt Need Aspirin: No Condition: Stable Instructions: Acute Nausea and Vomiting (ED) Additional Instructions: Please take medication as prescribed as needed. Please drink plenty of fluids. Follow up with your primary care doctor and a research dairy farm supervisor in the next 2-3 days. Return to the emergency room for any new or worsening symptoms. Prescriptions: Ondansetron [Zofran Odt] 4 mg PO Q8HR PRN #14 tab.rapdis PRN Reason: Nausea And Vomiting [facility] [Primary Care Provider] - 2-3 Days JENNY KEBEDE MD [Staff Physician] - 2-3 Days Forms: Accompanied Note, Work/School Release Form(ED) Time of Disposition: 22:23 Print Language: ARMENIAN
--- NOTE | 2018-12-04 22:14 | Cat Scan Report ---
PROCEDURE: CT ABDOMEN PELVIS WO CON TECHNIQUE: Computerized axial tomography of the abdomen and pelvis was performed without intravenous contrast. This study is performed without intravascular contrast material and its sensitivity for ab dominal and pelvic pathology, including neoplasms, inflammation, abscess, free fluid, thrombosis, art erial dissection and infarction, is reduced compared with a contrast enhanced study. CT DOSE LENGTH PRODUCT: 1732.8 mGycm HISTORY: emesis x 2 weeks, hx of PCKD COMPARISONS: 08/31/2016 . FINDINGS: Visualized lower thorax: No significant abnormality. Liver: Numerous hepatic circumscribed low-attenuation lesions are seen, presumably related to cysts. Spleen: Normal size and attenuation. Gallbladder and biliary system: Gallbladder is present. Pancreas: Normal. Adrenals: Normal. Kidneys: Kidneys are enlarged. Numerous bilateral low density and hyperdense renal cysts are present. There are bilateral punctate renal calculi present. No hydronephrosis or ureteral calculi are seen. GI tract: No bowel obstruction or inflammation. No appendiceal inflammation . Lymph nodes and mesentery: Normal. Vasculature: Normal.. Bladder: Normal. Reproductive organs: Uterus is present. Peritoneum: No free fluid. Musculoskeletal structures: No significant abnormality. Other: There has been prior anterior abdominal wall hernia repair. No recurrent hernia is seen. IMPRESSION: No bowel obstruction or inflammation. Changes of polycystic kidney disease are noted, with numerous bilateral renal cysts and hepatic cysts This document is electronically signed by Xiomara Cherry MD., December 04 2018 10:12:37 PM ET
[2018-12-04 22:53] VITALS: BP 151/88
== END 2018-12-04 22:41 | disposition home or self-care (01) ==
LOC: ED 15:06
DX: Q61.3 Polycystic kidney, unspecified (principal); I12.9 Hypertensive chronic kidney disease with stage 1 through stage 4 chronic kidney disease, or unspecified chronic kidney disease; N18.3 Chronic kidney disease, stage 3 (moderate); R11.2 Nausea with vomiting, unspecified; M19.90 Unspecified osteoarthritis, unspecified site; F32.9 Major depressive disorder, single episode, unspecified; F12.90 Cannabis use, unspecified, uncomplicated; Z98.51 Tubal ligation status; Z79.899 Other long term (current) drug therapy; Z88.6 Allergy status to analgesic agent; Z88.8 Allergy status to other drugs, medicaments and biological substances; Z98.890 Other specified postprocedural states
CPT/HCPCS: 36415; 74176; 80053; 81001; 81025; 82962; 83690; 85025; 96361; 96374; 99284; J2405; J7030; Q0162

== ENCOUNTER 2019-01-04 16:00 | Emergency (ER) | payer MEDICAID ==
--- NOTE | 2019-01-04 16:40 | Event Note ---
ED Screening Note Date of service: 01/04/19 Time: 16:39 ED Screening Note: 43 y/o female comes in for left leg swelling and pain. Was seen by her provider 1 hour [employer] and was sent here. This initial assessment/diagnostic orders/clinical plan/treatment(s) is/are subject to change based on patients health status, clinical progression and re- assessment by fellow clinical providers in the ED. Further treatment and workup at subsequent clinical providers discretion. Patient/guardian urged not to elope from the ED as their condition may be serious if not clinically assessed and managed. Initial orders include:
[2019-01-04] MEDS ORDERED: IBUPROFEN PO ONE (17:54)
--- NOTE | 2019-01-04 19:07 | Vascular Lab Report ---
DUPLEX DOPPLER LOWER EXTREMITY VEINS, LEFT INDICATION: left leg pain and swelling.. TECHNIQUE: Duplex doppler imaging was performed through the veins of the left lower extremity using venous compr ession and other maneuvers. COMPARISON: None available. FINDINGS: Common Femoral vein: Negative. Superficial Femoral vein: Negative. Popliteal vein: Negative. Calf veins: Negative. Additional findings: None. IMPRESSION: 1. No sonographic evidence for DVT in the left lower extremity. Signer Name: Romel Kiran MD Signed: 01/04/2019 7:02 PM Workstation Name: [email or web address]
--- NOTE | 2019-01-04 19:21 | Emergency Department Report ---
ED Lower Extremity HPI - General Chief Complaint: Extremity Injury, Lower Stated Complaint: LFT LEG PAIN Time Seen by Provider: 01/04/19 17:37 Source: patient Mode of arrival: Ambulatory Limitations: Physical Limitation - History of Present Illness Initial Comments: This is a 43-year-old female nontoxic, well nourished in appearance, no acute signs of distress presents to the ED with c/o of left ankle and foot pain 1 week. Patient stated that pain radiates to left upper leg. Patient denies any trauma. Patient denies any numbness, tingling, fever, chills, nausea, vomiting, chest pain, shortness of breath, headache, stiff neck. Patient denies any joint swelling or joint redness. Patient denies decreased range of motion. Patient stated has decreased gait due to pain. Patient states allergies to lisinopril and Percocet. MD Complaint: ankle injury, foot injury -: week(s) (1) Injury: Ankle: Left, Foot: Left Severity: mild Severity scale (0 -10): 8 Improves With: immobilization Worsens With: weight bearing, movement, palpation Associated Symptoms: able to partially bear weight, ambulatory. denies: snap/pop sensation, swelling, numbness, tingling, unable to bear weight - Related Data Home Medications Medication Instructions Recorded Confirmed Last Taken Citalopram [Celexa] 20 mg PO DAILY 06/06/13 11/05/16 05/09/14 Dextroamphetamine/Amphetamine 10 mg PO DAILY PRN 05/09/14 11/05/16 Unknown [Adderall 10 mg Tablet] Lisinopril [Zestril TAB] 20 mg PO QDAY 05/09/14 11/05/16 05/09/14 Spironolactone [Aldactone] 25 mg PO DAILY 05/09/14 11/05/16 05/09/14 clonazePAM [KlonoPIN] 1 mg PO BID PRN 05/09/14 11/05/16 05/09/14 Previous Rx's Medication Instructions Recorded Last Taken Type Cyclobenzaprine [Flexeril 10 MG 10 mg PO TID PRN #14 tablet 05/09/14 Unknown Rx TAB] Oseltamivir [Tamiflu] 75 mg PO QDAY #7 capsule 08/31/16 Unknown Rx Acetaminophen/Codeine [Tylenol 1 tab PO Q6H PRN #14 tab 11/05/16 Unknown Rx /Codeine # 3 tab] Amoxicillin/K Clav Tab [Augmentin 1 tab PO Q12HR 10 Days tab 11/05/16 Unknown Rx 875 mg] Butalb/Acetamin/Caff 50-325-40 2 tab PO Q6H PRN #14 tablet 11/05/16 Unknown Rx [Fioricet 50-325-40] Cyclobenzaprine [Flexeril] 10 mg PO QHS PRN #7 tablet 08/14/17 Unknown Rx Ibuprofen [Motrin] 600 mg PO Q8H PRN #30 tablet 08/14/17 Unknown Rx Atenolol [Tenormin] 100 mg PO DAILY #30 tab 04/17/18 Unknown Rx amLODIPine [Norvasc] 10 mg PO DAILY #30 tablet 04/17/18 Unknown Rx hydrALAZINE [Apresoline TAB] 25 mg PO QDAY #30 tablet 04/17/18 Unknown Rx predniSONE [Prednisone] 50 mg PO DAILY #5 tablet 04/17/18 Unknown Rx traMADol [Ultram] 50 mg PO Q6HR PRN #7 tablet 04/17/18 Unknown Rx Ondansetron [Zofran Odt] 4 mg PO Q8HR PRN #14 tab.rapdis 12/04/18 Unknown Rx Acetaminophen/Codeine [Tylenol 1 tab PO Q6H PRN #12 tab 01/04/19 Unknown Rx /Codeine # 3 tab] Ibuprofen [Motrin] 600 mg PO Q8H PRN #20 tablet 01/04/19 Unknown Rx Allergies Allergy/AdvReac Type Severity Reaction Status Date / Time acetaminophen [From Percocet] Allergy Unknown Verified 12/04/18 15:19 lisinopril Allergy Angioedema Verified 12/04/18 15:09 oxycodone [From Percocet] Allergy Unknown Verified 12/04/18 15:19 ED Review of Systems ROS: Stated complaint: LFT LEG PAIN Other details as noted in HPI Constitutional: denies: chills, fever Eyes: denies: eye pain, eye discharge, vision change ENT: denies: ear pain, throat pain Respiratory: denies: cough, shortness of breath, wheezing Cardiovascular: denies: chest pain, palpitations Endocrine: no symptoms reported Gastrointestinal: denies: abdominal pain, nausea, diarrhea Genitourinary: denies: urgency, dysuria, discharge Musculoskeletal: arthralgia. denies: back pain, joint swelling Skin: denies: rash, lesions Neurological: denies: headache, weakness, paresthesias Psychiatric: denies: anxiety, depression Hematological/Lymphatic: denies: easy bleeding, easy bruising ED Past Medical Hx - Past Medical History Hx Hypertension: Yes Hx Heart Attack/AMI: No Hx Congestive Heart Failure: No Hx Deep Vein Thrombosis: No Hx Renal Disease: Yes (stage 3) Hx Arthritis: Yes Hx Seizures: Yes Hx Kidney Stones: No Hx Psychiatric Treatment: Yes (depression,ADD) Hx Tuberculosis: No Hx HIV: No Additional medical history: PTSD - Surgical History Hx Coronary Stent: No Hx Pacemaker: No Hx Internal Defibrillator: No Additional Surgical History: hernia repair, tubiligation. x2. ovarian surgery - Social History Smoking Status: Never Smoker Substance Use Type: None - Medications Home Medications: Home Medications Medication Instructions Recorded Confirmed Last Taken Type Citalopram [Celexa] 20 mg PO DAILY 06/06/13 11/05/16 05/09/14 History Cyclobenzaprine [Flexeril 10 MG 10 mg PO TID PRN #14 tablet 05/09/14 11/05/16 Unknown Rx TAB] Dextroamphetamine/Amphetamine 10 mg PO DAILY PRN 05/09/14 11/05/16 Unknown History [Adderall 10 mg Tablet] Lisinopril [Zestril TAB] 20 mg PO QDAY 05/09/14 11/05/16 05/09/14 History Spironolactone [Aldactone] 25 mg PO DAILY 05/09/14 11/05/16 05/09/14 History clonazePAM [KlonoPIN] 1 mg PO BID PRN 05/09/14 11/05/16 05/09/14 History Oseltamivir [Tamiflu] 75 mg PO QDAY #7 capsule 08/31/16 11/05/16 Unknown Rx Acetaminophen/Codeine [Tylenol 1 tab PO Q6H PRN #14 tab 11/05/16 Unknown Rx /Codeine # 3 tab] Amoxicillin/K Clav Tab [Augmentin 1 tab PO Q12HR 10 Days tab 11/05/16 Unknown Rx 875 mg] Butalb/Acetamin/Caff 50-325-40 2 tab PO Q6H PRN #14 tablet 11/05/16 Unknown Rx [Fioricet 50-325-40] Cyclobenzaprine [Flexeril] 10 mg PO QHS PRN #7 tablet 08/14/17 Unknown Rx Ibuprofen [Motrin] 600 mg PO Q8H PRN #30 tablet 08/14/17 Unknown Rx Atenolol [Tenormin] 100 mg PO DAILY #30 tab 04/17/18 Unknown Rx amLODIPine [Norvasc] 10 mg PO DAILY #30 tablet 04/17/18 Unknown Rx hydrALAZINE [Apresoline TAB] 25 mg PO QDAY #30 tablet 04/17/18 Unknown Rx predniSONE [Prednisone] 50 mg PO DAILY #5 tablet 04/17/18 Unknown Rx traMADol [Ultram] 50 mg PO Q6HR PRN #7 tablet 04/17/18 Unknown Rx Ondansetron [Zofran Odt] 4 mg PO Q8HR PRN #14 tab.rapdis 12/04/18 Unknown Rx Acetaminophen/Codeine [Tylenol 1 tab PO Q6H PRN #12 tab 01/04/19 Unknown Rx /Codeine # 3 tab] Ibuprofen [Motrin] 600 mg PO Q8H PRN #20 tablet 01/04/19 Unknown Rx ED Physical Exam - General Limitations: Physical Limitation General appearance: alert, in no apparent distress - Head Head exam: Present: atraumatic, normocephalic - Neck Neck exam: Present: normal inspection, full ROM. Absent: tenderness, meningismus, lymphadenopathy - Extremities Exam Extremities exam: Present: full ROM, tenderness, normal capillary refill. Absent: joint swelling, calf tenderness - Expanded Lower Extremity Exam Left Hip exam: Present: normal inspection, full ROM. Absent: tenderness, swelling Upper Leg exam: Present: normal inspection, full ROM. Absent: tenderness, swelling Knee exam: Present: normal inspection, full ROM. Absent: tenderness, swelling Lower Leg exam: Present: normal inspection, full ROM. Absent: tenderness, swelling, abrasion, laceration, ecchymosis, deformity, crepidus, dislocation, erythema, palpable cord, Kaylee's sign Ankle exam: Present: normal inspection, full ROM, tenderness. Absent: swelling, abrasion, laceration, ecchymosis, deformity, crepidus, dislocation, erythema, anterior draw sign Foot/Toe exam: Present: normal inspection, full ROM, tenderness. Absent: swelling, abrasion, laceration, ecchymosis, deformity, dislocation, erythema, amputation, puncture wound, foreign body, calcaneal tenderness, tenderness at base of 5th metatarsal, nail avulsion, subungual hematoma Neuro vascular tendon exam: Present: no vascular compromise Gait: Positive: observed and limited by pain - Back Exam Back exam: Present: normal inspection, full ROM - Neurological Exam Neurological exam: Present: alert, oriented X3 - Psychiatric Psychiatric exam: Present: normal affect, normal mood - Skin Skin exam: Present: warm, dry, intact, normal color. Absent: rash ED Course Vital Signs 01/04/19 16:38 Temperature 98.9 F Pulse Rate 77 Respiratory 16 Rate Blood Pressure 162/99 O2 Sat by Pulse 99 Oximetry - Reevaluation(s) Reevaluation #1: 01/04/19 19:22 Patient is speaking in full sentences with no signs of distress noted. ED Lower Extremity MDM - Medical Decision Making This is a 43-year-old female that presents with left ankle/foot strain. Patient is stable and was examined by me. I referred patient to an orthopedic doctor for further evaluation for possible MRI. X-ray has been obtained and dictated by the radiologist Doppler ultrasound has been obtained prior to my interview and dictated by radiology is unremarkable. Patient is notified of the x-ray and US report with noted by the patient. Patient does have normal gait with no tenderness and no joint swelling. No ecchymosis. no joint redness or swelling. Not warm to touch. No signs of cellulites present. Patient received ankle stirrup and crutches and was educated by RN how to use crutches. Patient was instructed to RICE therapy. Patient received Motrin for pain. Patient is discharged with Motrin and Tylenol #3. At time of discharge, the patient does no t seem toxic or ill in appearance. No acute signs of distress noted. Patient agrees to discharge treatment plan of care. No further questions noted by the patient. Critical care attestation.: If time is entered above; I have spent that time in minutes in the direct care of this critically ill patient, excluding procedure time. ED Disposition Clinical Impression: Left ankle strain Qualifiers: Encounter type: initial encounter Qualified Code(s): S96.912A - Strain of unspecified muscle and tendon at ankle and foot level, left foot, initial encounter Strain of left foot Qualifiers: Encounter type: initial encounter Qualified Code(s): S96.912A - Strain of unspecified muscle and tendon at ankle and foot level, left foot, initial encounter Disposition: TO HOME OR SELFCARE Is pt being admited?: No Does the pt Need Aspirin: No Condition: Stable Instructions: RICE Therapy (ED), Acetaminophen/Codeine (By mouth) Additional Instructions: Follow-up with a primary care and orthopedic doctor in 3-5 days or if symptoms worsen and continue return to emergency room as soon as possible. Do not operate any machinery while taking Tylenol with codeine as this may cause drowsiness. Prescriptions: Ibuprofen [Motrin] 600 mg PO Q8H PRN #20 tablet PRN Reason: Pain Acetaminophen/Codeine [Tylenol /Codeine # 3 tab] 1 tab PO Q6H PRN #12 tab PRN Reason: Pain , Severe (7-10) Referrals: DEBRA NEVAREZ MD [Primary Care Provider] - 3-5 Days VALERIE MAYORGA MD [Staff Physician] - 3-5 Days CARLOS ANGELO MD [Staff Physician] - 3-5 Days [facility] [Outside] - 3-5 Days [facility] [Outside] - 3-5 Days
--- NOTE | 2019-01-04 19:43 | XRay Report ---
LEFT FOOT 3 VIEWS INDICATION / CLINICAL INFORMATION: foot pain. COMPARISON: None available. FINDINGS: Small Achilles spur. Mild degenerative change in the first metatarsophalangeal joint. Bipartite media l sesamoid of the great toe. No other significant skeletal abnormality. Signer Name: Aime GAFFNEY Signed: 01/04/2019 7:38 PM Workstation Name: [id number]
--- NOTE | 2019-01-04 19:45 | XRay Report ---
LEFT ANKLE 3 VIEWS . INDICATION / CLINICAL INFORMATION: ankle pain and swelling for the past few days with inability to bear weight today. COMPARISON: None available. FINDINGS: Diffuse soft tissue edema. No other significant skeletal abnormality. Signer Name: Aime Rodriguez MD FACManju Signed: 01/04/2019 7:40 PM Workstation Name: [id number]
[2019-01-04 20:39] VITALS: BP 165/94
== END 2019-01-04 20:37 | disposition home or self-care (01) ==
LOC: ED 16:00
DX: S96.912A Strain of unspecified muscle and tendon at ankle and foot level, left foot, initial encounter (principal); I12.9 Hypertensive chronic kidney disease with stage 1 through stage 4 chronic kidney disease, or unspecified chronic kidney disease; N18.3 Chronic kidney disease, stage 3 (moderate); M19.90 Unspecified osteoarthritis, unspecified site; F32.9 Major depressive disorder, single episode, unspecified; F98.8 Other specified behavioral and emotional disorders with onset usually occurring in childhood and adolescence; F43.10 Post-traumatic stress disorder, unspecified; Z98.51 Tubal ligation status; Z88.6 Allergy status to analgesic agent; Z88.8 Allergy status to other drugs, medicaments and biological substances; Z79.899 Other long term (current) drug therapy; X58.XXXA Exposure to other specified factors, initial encounter; Y93.89 Activity, other specified; Y92.89 Other specified places as the place of occurrence of the external cause; Y99.8 Other external cause status

== ENCOUNTER 2019-06-29 11:24 | Observation (INO) | payer MEDICAID ==
--- NOTE | 2019-06-29 12:55 | Event Note ---
ED Screening Note Date of service: 06/29/19 Time: 12:50 ED Screening Note: This is a 44 y.o. F. that presents to the ER with frequent panic attacks today. Patient states she tried to see her psychiatrist today. The therapist sent patient to ER for elevated blood pressure. States he can't treat anxiety until blood pressure is under control. Pt off medication since May. Reports headache This initial assessment/diagnostic orders/clinical plan/treatment(s) is/are subject to change based on patients health status, clinical progression and re- assessment by fellow clinical providers in the ED. Further treatment and workup at subsequent clinical providers discretion. Patient/guardian urged not to elope from the ED as their condition may be serious if not clinically assessed and managed. Initial orders include: Labs
[2019-06-29 13:33] LABS: Hematocrit 32.9 % (30.3-42.9); Hemoglobin 11.1 gm/dl (10.1-14.3); Mean Corpuscular HGB Conc 34 % (30-34); Mean Corpuscular Volume 82 fl (79-97); Platelet Count 268 K/mm3 (140-440); Red Blood Count 3.99 M/mm3 (3.65-5.03); Red Cell Distribution Width 15.4 % (13.2-15.2)
[2019-06-29 13:59] LABS: Calcium 9.8 mg/dL (8.4-10.2)
--- NOTE | 2019-06-29 14:41 | Emergency Department Report ---
ED General Adult HPI - General Chief complaint: High BP Stated complaint: PANIC ATTACK/HBP Time Seen by Provider: 06/29/19 14:01 Source: patient Mode of arrival: Ambulatory Limitations: No Limitations - History of Present Illness Initial comments: Patient is a 44-year-old female that presents emergency with complaints of high blood pressure and panic attacks. Patient states she went to her therapist office today and was having a panic attack and they noted that her blood pressure was extremely elevated and they sent her to the emergency room for ev aluation and treatment. Patient states she normally takes atenolol, spironolactone, Norvasc but has been out of her medications for 2 weeks. Patient states her anxiety has worsened. Patient denies headache. Patient denies chest pain. Patient denies shortness of breath. Patient denies blurry vision. Patient denies fever. Patient denies chills. Patient denies abdominal pain. Patient denies any physical complaints. Patient states her anxiety is better since she arrived here. Patient states her panic attack resolved. -: Sudden Severity scale (0 -10): 0 Consistency: constant Improves with: medication, rest Worsens with: other - Related Data Home Medications Medication Instructions Recorded Confirmed Last Taken Citalopram [Celexa] 20 mg PO DAILY 06/06/13 11/05/16 05/09/14 Dextroamphetamine/Amphetamine 20 mg PO DAILY PRN 05/09/14 06/29/19 Unknown [Adderall 10 mg Tablet] Spironolactone [Aldactone] 25 mg PO DAILY 05/09/14 11/05/16 05/09/14 clonazePAM [KlonoPIN] 1 mg PO BID PRN 05/09/14 11/05/16 05/09/14 lisinopriL [Zestril TAB] 20 mg PO QDAY 05/09/14 11/05/16 05/09/14 Ativan 1 mg PRN 06/29/19 Unknown Vistaril 100 mg PRN 06/29/19 Unknown Vraylar 3 mg 06/29/19 Unknown Zoloft 100 mg 06/29/19 Unknown traZODone 200 mg 06/29/19 Unknown Previous Rx's Medication Instructions Recorded Last Taken Type Cyclobenzaprine [Flexeril 10 MG 10 mg PO TID PRN #14 tablet 05/09/14 Unknown Rx TAB] Oseltamivir [Tamiflu] 75 mg PO QDAY #7 capsule 08/31/16 Unknown Rx Acetaminophen/Codeine [Tylenol 1 tab PO Q6H PRN #14 tab 11/05/16 Unknown Rx /Codeine # 3 tab] Amoxicillin/K Clav Tab [Augmentin 1 tab PO Q12HR 10 Days tab 11/05/16 Unknown Rx 875 mg] Butalb/Acetamin/Caff 50-325-40 2 tab PO Q6H PRN #14 tablet 11/05/16 Unknown Rx [Fioricet 50-325-40] Cyclobenzaprine [Flexeril] 10 mg PO QHS PRN #7 tablet 08/14/17 Unknown Rx Ibuprofen [Motrin] 600 mg PO Q8H PRN #30 tablet 08/14/17 Unknown Rx Atenolol [Tenormin] 100 mg PO DAILY #30 tab 04/17/18 Unknown Rx amLODIPine 10 mg PO DAILY #30 tablet 04/17/18 Unknown Rx hydrALAZINE [Apresoline TAB] 25 mg PO QDAY #30 tablet 04/17/18 06/29/19 Rx predniSONE [Prednisone] 50 mg PO DAILY #5 tablet 04/17/18 Unknown Rx traMADoL [Ultram] 50 mg PO Q6HR PRN #7 tablet 04/17/18 Unknown Rx Ondansetron [Zofran Odt] 4 mg PO Q8HR PRN #14 tab.rapdis 12/04/18 Unknown Rx Acetaminophen/Codeine [Tylenol 1 tab PO Q6H PRN #12 tab 01/04/19 Unknown Rx /Codeine # 3 tab] Ibuprofen [Motrin] 600 mg PO Q8H PRN #20 tablet 01/04/19 Unknown Rx Allergies Allergy/AdvReac Type Severity Reaction Status Date / Time acetaminophen [From Percocet] Allergy Unknown Verified 12/04/18 15:19 lisinopril Allergy Angioedema Verified 12/04/18 15:09 oxycodone [From Percocet] Allergy Unknown Verified 12/04/18 15:19 ED Review of Systems ROS: Stated complaint: PANIC ATTACK/HBP Other details as noted in HPI Constitutional: denies: chills, fever Eyes: denies: eye pain, eye discharge, vision change ENT: denies: ear pain, throat pain Respiratory: denies: cough, shortness of breath, wheezing Cardiovascular: denies: chest pain, palpitations Endocrine: no symptoms reported Gastrointestinal: denies: abdominal pain, nausea, diarrhea Genitourinary: denies: urgency, dysuria, discharge Musculoskeletal: denies: back pain, joint swelling, arthralgia Skin: denies: rash, lesions Neurological: denies: headache, weakness, paresthesias Psychiatric: anxiety. denies: depression Hematological/Lymphatic: denies: easy bleeding, easy bruising ED Past Medical Hx - Past Medical History Previous Medical History?: Yes Hx Hypertension: Yes Hx Heart Attack/AMI: No Hx Congestive Heart Failure: No Hx Deep Vein Thrombosis: No Hx Renal Disease: Yes (stage 3, basline cr 2.8- 3) Hx Arthritis: Yes Hx Seizures: Yes Hx Kidney Stones: No Hx Psychiatric Treatment: Yes (depression,ADD,bipolar) Hx Tuberculosis: No Hx HIV: No Additional medical history: PTSD - Surgical History Past Surgical History?: Yes Hx Coronary Stent: No Hx Pacemaker: No Hx Internal Defibrillator: No Additional Surgical History: hernia repair, tubiligation. x2. ovarian surgery - Family History Family history: no significant - Social History Smoking Status: Never Smoker Substance Use Type: None - Medications Home Medications: Home Medications Medication Instructions Recorded Confirmed Last Taken Type Citalopram [Celexa] 20 mg PO DAILY 06/06/13 11/05/16 05/09/14 History Cyclobenzaprine [Flexeril 10 MG 10 mg PO TID PRN #14 tablet 05/09/14 11/05/16 Unknown Rx TAB] Dextroamphetamine/Amphetamine 20 mg PO DAILY PRN 05/09/14 06/29/19 Unknown History [Adderall 10 mg Tablet] Spironolactone [Aldactone] 25 mg PO DAILY 05/09/14 11/05/16 05/09/14 History clonazePAM [KlonoPIN] 1 mg PO BID PRN 05/09/14 11/05/16 05/09/14 History lisinopriL [Zestril TAB] 20 mg PO QDAY 05/09/14 11/05/16 05/09/14 History Oseltamivir [Tamiflu] 75 mg PO QDAY #7 capsule 08/31/16 11/05/16 Unknown Rx Acetaminophen/Codeine [Tylenol 1 tab PO Q6H PRN #14 tab 11/05/16 Unknown Rx /Codeine # 3 tab] Amoxicillin/K Clav Tab [Augmentin 1 tab PO Q12HR 10 Days tab 11/05/16 Unknown Rx 875 mg] Butalb/Acetamin/Caff 50-325-40 2 tab PO Q6H PRN #14 tablet 11/05/16 Unknown Rx [Fioricet 50-325-40] Cyclobenzaprine [Flexeril] 10 mg PO QHS PRN #7 tablet 08/14/17 Unknown Rx Ibuprofen [Motrin] 600 mg PO Q8H PRN #30 tablet 08/14/17 Unknown Rx Atenolol [Tenormin] 100 mg PO DAILY #30 tab 04/17/18 Unknown Rx amLODIPine 10 mg PO DAILY #30 tablet 04/17/18 Unknown Rx hydrALAZINE [Apresoline TAB] 25 mg PO QDAY #30 tablet 04/17/18 06/29/19 06/29/19 Rx predniSONE [Prednisone] 50 mg PO DAILY #5 tablet 04/17/18 Unknown Rx traMADoL [Ultram] 50 mg PO Q6HR PRN #7 tablet 04/17/18 Unknown Rx Ondansetron [Zofran Odt] 4 mg PO Q8HR PRN #14 tab.rapdis 12/04/18 Unknown Rx Acetaminophen/Codeine [Tylenol 1 tab PO Q6H PRN #12 tab 01/04/19 Unknown Rx /Codeine # 3 tab] Ibuprofen [Motrin] 600 mg PO Q8H PRN #20 tablet 01/04/19 Unknown Rx Ativan 1 mg PRN 06/29/19 Unknown History Vistaril 100 mg PRN 06/29/19 Unknown History Vraylar 3 mg 06/29/19 Unknown History Zoloft 100 mg 06/29/19 Unknown History traZODone 200 mg 06/29/19 Unknown History ED Physical Exam - General Limitations: No Limitations General appearance: alert, in no apparent distress - Head Head exam: Present: atraumatic, normocephalic - Eye Eye exam: Present: normal appearance, PERRL, EOMI Pupils: Present: normal accommodation - ENT ENT exam: Present: mucous membranes moist - Neck Neck exam: Present: normal inspection - Respiratory Respiratory exam: Present: normal lung sounds bilaterally. Absent: respiratory distress, wheezes, rales - Cardiovascular Cardiovascular Exam: Present: regular rate, normal rhythm. Absent: systolic murmur, diastolic murmur, rubs, gallop - GI/Abdominal GI/Abdominal exam: Present: soft, normal bowel sounds. Absent: distended, tenderness, guarding - Rectal Rectal exam: Present: deferred - Extremities Exam Extremities exam: Present: normal inspection - Back Exam Back exam: Present: normal inspection, full ROM - Neurological Exam Neurological exam: Present: alert, oriented X3, CN II-XII intact, normal gait. Absent: motor sensory deficit - Psychiatric Psychiatric exam: Present: normal affect, normal mood - Skin Skin exam: Present: warm, dry, intact, normal color. Absent: rash ED Course Vital Signs 06/29/19 06/29/19 06/29/19 12:17 12:49 14:22 Temperature 98.9 F Pulse Rate 117 H 99 H Respiratory 18 18 Rate Blood Pressure 222/138 Blood Pressure 235/149 205/134 [Left] O2 Sat by Pulse 100 99 Oximetry 06/29/19 06/29/19 06/29/19 15:00 15:07 15:19 Temperature Pulse Rate 107 H 80 Respiratory 18 18 Rate Blood Pressure 202/121 Blood Pressure 213/133 [Left] O2 Sat by Pulse 99 99 Oximetry 06/29/19 06/29/19 17:40 19:15 Temperature 98.3 F Pulse Rate 87 88 Respiratory 14 Rate Blood Pressure 201/117 Blood Pressure 178/100 [Left] O2 Sat by Pulse 98 Oximetry - Reevaluation(s) Reevaluation #1: Initial evaluation done. bp elevated. 06/29/19 14:01 Reevaluation #2: Blood pressure not improving with by mouth intake. Patient patient will have an IV started and given IV medications. Patient also has an increase in her creatinine. I discussed plan of care patient. Discussed all results patient. Patient agrees plan of care and admission. Patient will be admitted to the hospitalist service. 06/29/19 16:44 - Consultations Consultation #1: Hospital's consult for admission. Hospitalist and the patient. 06/29/19 16:45 ED Medical Decision Making - Lab Data Result diagrams: 06/29/19 13:07 06/29/19 13:07 - EKG Data -: EKG Interpreted by Me EKG shows normal: sinus rhythm, axis, intervals, QRS complexes, ST-T waves Rate: normal - EKG Data Interpretation: [facility] - Medical Decision Making Patient is a 44-year-old female that presents to emergency room with elevated blood pressure and panic attack. Patient was sent here by her therapist for high blood pressure. Patient has been noncompliant for 2 weeks with her blood pressure medications. Patient has a history of chronic kidney disease with a creatinine of 2.8 3.0 baseline. Patient's crit 4.0. Patient admitted to the hospitalist service for acute renal failure. Patient's blood pressure difficult to control. Patient given multiple medications blood pressure high. Patient given IV fluids for renal failure. - Differential Diagnosis renal failure, noncompliance, acute on chronic renal failure. hbp Critical Care Time: Yes Critical care time in (mins) excluding proc time.: 35 Critical care attestation.: If time is entered above; I have spent that time in minutes in the direct care of this critically ill patient, excluding procedure time. Critical Care Time: 35 minutes ED Disposition Clinical Impression: Noncompliance, Malignant hypertension, Renal insufficiency Acute renal failure Qualifiers: Acute renal failure type: unspecified Qualified Code(s): N17.9 - Acute kidney failure, unspecified Disposition: 09 OP ADMIT IP TO THIS HOSP Is pt being admited?: Yes Does the pt Need Aspirin: No Condition: Good Time of Disposition: 16:44
[2019-06-29] MEDS ORDERED: amLODIPine 5 MG TAB PO ONE (14:46)
[2019-06-29] MEDS ORDERED: atenoloL 50 MG TAB PO ONE (14:46)
[2019-06-29] MEDS ORDERED: cloNIDine 0.2 MG TAB PO ONE (16:38)
[2019-06-29] MEDS ORDERED: hydrALAZINE 20 MG/1 ML INJ IV ONE (16:43)
[2019-06-29] MEDS ORDERED: SODIUM CHLORIDE 0.9% 1000 ML 1,000 ML IV ONE (16:43)
[2019-06-29] MEDS ORDERED: NON-FORMULARY EACH (Clonazepam [Klonopin] 1 MG) PO PRN (20:11)
[2019-06-29] MEDS ORDERED: LORazepam 2 MG/ML VIAL IV PRN (20:14)
[2019-06-29] MEDS ORDERED: hydrALAZINE 20 MG/1 ML INJ IV PRN (20:14)
[2019-06-29] MEDS: clonazePAM 0.5 MG TAB PO SCH (21:28)
[2019-06-29] MEDS ORDERED: DEXTROAMPHETAMINE PO PRN (22:01)
[2019-06-29] MEDS ORDERED: ONDANSETRON 4 MG ODT TAB PO PRN (22:01)
[2019-06-29] MEDS ORDERED: AMPHETAMINE PO PRN (22:01)
[2019-06-29] MEDS ORDERED: CYCLOBENZAPRINE 10 MG TAB PO PRN (22:01)
[2019-06-29] MEDS ORDERED: IBUPROFEN 600 MG TAB PO PRN (22:01)
--- NOTE | 2019-06-29 22:01 | History and Physical Report ---
History of Present Illness Date of examination: 06/29/19 Date of admission: 06/29/19 16:46 Chief complaint: Panic attack and high blood pressure in the therapist's office. History of present illness: 44-year-old -[place] female with history of hypertension and noncompliant sent in to the emergency room from her psychotherapist office. Patient was noted to have panic attacks and high blood pressure in the office and was sent here. Patient has not been taking her medications for the past 2 weeks. Her anxiety is increased and is also having headaches off and on. No shortness of breath. No chest pain. No recent travel. No fever or chills. Past Medical History Previous Medical History?: Yes Hypertension: Yes Renal Disease: Yes (stage 3, basline cr 2.8- 3) Arthritis: Yes Seizures: Yes Psychiatric Treatment: Yes (depression,ADD,bipolar) Additional medical history: PTSD Surgical History Past Surgical History?: Yes Additional Surgical History: hernia repair, tubiligation. x2. ovar ayesha surgery Family History Family history: no significant Social History Smoking Status: Never Smoker Substance Use Type: None Medications Home Medications: Home Medications Medication Instructions Recorded Confirmed Last Taken Type Citalopram [Celexa] 20 mg PO DAILY 06/06/13 11/05/16 05/09/14 History Cyclobenzaprine [Flexeril 10 MG 10 mg PO TID PRN #14 tablet 05/09/14 11/05/16 Unknown Rx TAB] Dextroamphetamine/Amphetamine 20 mg PO DAILY PRN 05/09/14 06/29/19 Unknown History [Adderall 10 mg Tablet] Spironolactone [Aldactone] 25 mg PO DAILY 05/09/14 11/05/16 05/09/14 History clonazePAM [KlonoPIN] 1 mg PO BID PRN 05/09/14 11/05/16 05/09/14 History lisinopriL [Zestril TAB] 20 mg PO QDAY 05/09/14 11/05/16 05/09/14 History Oseltamivir [Tamiflu] 75 mg PO QDAY #7 capsule 08/31/16 11/05/16 Unknown Rx Acetaminophen/Codeine [Tylenol 1 tab PO Q6H PRN #14 tab 11/05/16 Unknown Rx /Codeine # 3 tab] Amoxicillin/K Clav Tab [Augmentin 1 tab PO Q12HR 10 Days tab 11/05/16 Unknown Rx 875 mg] Butalb/Acetamin/Caff 50-325-40 2 tab PO Q6H PRN #14 tablet 11/05/16 Unknown Rx [Fioricet 50-325-40] Cyclobenzaprine [Flexeril] 10 mg PO QHS PRN #7 tablet 08/14/17 Unknown Rx Ibuprofen [Motrin] 600 mg PO Q8H PRN #30 tablet 08/14/17 Unknown Rx Atenolol [Tenormin] 100 mg PO DAILY #30 tab 04/17/18 Unknown Rx amLODIPine 10 mg PO DAILY #30 tablet 04/17/18 Unknown Rx hydrALAZINE [Apresoline TAB] 25 mg PO QDAY #30 tablet 04/17/18 06/29/19 06/29/19 Rx predniSONE [Prednisone] 50 mg PO DAILY #5 tablet 04/17/18 Unknown Rx traMADoL [Ultram] 50 mg PO Q6HR PRN #7 tablet 04/17/18 Unknown Rx Ondansetron [Zofran Odt] 4 mg PO Q8HR PRN #14 tab.rapdis 12/04/18 Unknown Rx Acetaminophen/Codeine [Tylenol 1 tab PO Q6H PRN #12 tab 01/04/19 Unknown Rx /Codeine # 3 tab] Ibuprofen [Motrin] 600 mg PO Q8H PRN #20 tablet 01/04/19 Unknown Rx Ativan 1 mg PRN 06/29/19 Unknown History Vistaril 100 mg PRN 06/29/19 Unknown History Vraylar 3 mg 06/29/19 Unknown History Zoloft 100 mg 06/29/19 Unknown History traZODone 200 mg 06/29/19 Unknown History Review of Systems ROS: Stated complaint: PANIC ATTACK/HBP Other details as noted in HPI Medications and Allergies Allergies Allergy/AdvReac Type Severity Reaction Status Date / Time acetaminophen [From Percocet] Allergy Unknown Verified 12/04/18 15:19 lisinopril Allergy Angioedema Verified 12/04/18 15:09 oxycodone [From Percocet] Allergy Unknown Verified 12/04/18 15:19 Home Medications Medication Instructions Recorded Confirmed Last Taken Type Citalopram [Celexa] 20 mg PO DAILY 12/11/05/16 05/09/14 History Cyclobenzaprine [Flexeril 10 MG 10 mg PO TID PRN #14 tablet 05/09/14 11/05/16 Unknown Rx TAB] Dextroamphetamine/Amphetamine 20 mg PO DAILY PRN 05/09/14 06/29/19 Unknown History [Adderall 10 mg Tablet] Spironolactone [Aldactone] 25 mg PO DAILY 05/09/14 11/05/16 05/09/14 History clonazePAM [KlonoPIN] 1 mg PO BID PRN 05/09/14 11/05/16 05/09/14 History lisinopriL [Zestril TAB] 20 mg PO QDAY 05/09/14 11/05/16 05/09/14 History Oseltamivir [Tamiflu] 75 mg PO QDAY #7 capsule 08/31/16 11/05/16 Unknown Rx Acetaminophen/Codeine [Tylenol 1 tab PO Q6H PRN #14 tab 11/05/16 Unknown Rx /Codeine # 3 tab] Amoxicillin/K Clav Tab [Augmentin 1 tab PO Q12HR 10 Days tab 11/05/16 Unknown Rx 875 mg] Butalb/Acetamin/Caff 50-325-40 2 tab PO Q6H PRN #14 tablet 11/05/16 Unknown Rx [Fioricet 50-325-40] Cyclobenzaprine [Flexeril] 10 mg PO QHS PRN #7 tablet 08/14/17 Unknown Rx Ibuprofen [Motrin] 600 mg PO Q8H PRN #30 tablet 08/14/17 Unknown Rx Atenolol [Tenormin] 100 mg PO DAILY #30 tab 04/17/18 Unknown Rx amLODIPine 10 mg PO DAILY #30 tablet 04/17/18 Unknown Rx hydrALAZINE [Apresoline TAB] 25 mg PO QDAY #30 tablet 04/17/18 06/29/19 06/29/19 Rx predniSONE [Prednisone] 50 mg PO DAILY #5 tablet 04/17/18 Unknown Rx traMADoL [Ultram] 50 mg PO Q6HR PRN #7 tablet 04/17/18 Unknown Rx Ondansetron [Zofran Odt] 4 mg PO Q8HR PRN #14 tab.rapdis 12/04/18 Unknown Rx Acetaminophen/Codeine [Tylenol 1 tab PO Q6H PRN #12 tab 01/04/19 Unknown Rx /Codeine # 3 tab] Ibuprofen [Motrin] 600 mg PO Q8H PRN #20 tablet 01/04/19 Unknown Rx Ativan 1 mg PRN 06/29/19 Unknown History Vistaril 100 mg PRN 06/29/19 Unknown History Vraylar 3 mg 06/29/19 Unknown History Zoloft 100 mg 06/29/19 Unknown History traZODone 200 mg 06/29/19 Unknown History Active Meds: Active Medications Amlodipine Besylate (Amlodipine) 10 mg PO DAILY AGUSTIN Atenolol (Tenormin) 100 mg PO QDAY AGUSTIN Citalopram Hydrobromide (Celexa) 20 mg PO DAILY AGUSTIN Clonazepam (Klonopin) 1 mg PO BID AGUSTIN Last Admin: 06/29/19 21:28 Dose: 1 mg Documented by: Hydralazine HCl (Apresoline) 25 mg PO QDAY AGUSTIN Hydralazine HCl (Apresoline) 10 mg IV Q4HR PRN PRN Reason: Blood Pressure Last Admin: 06/29/19 21:29 Dose: 10 mg Documented by: Sodium Chloride (Nacl 0.9% 1000 Ml) 1,000 mls @ 125 mls/hr IV ONCE ONE Stop: 06/30/19 00:42 Last Admin: 06/29/19 17:38 Dose: 125 mls/hr Documented by: Lorazepam (Ativan) 0.5 mg IV Q8H PRN PRN Reason: Anxiety Exam - Constitutional Vitals: Temp Pulse Resp BP Pulse Ox 98.5 F 100 H 18 179/109 100 06/29/19 20:05 06/29/19 21:29 06/29/19 20:05 06/29/19 21:29 06/29/19 20:05 General appearance: Present: mild distress, well-nourished - EENT Eyes: Present: PERRL ENT: hearing intact, clear oral mucosa - Neck Neck: Present: supple, normal ROM - Respiratory Respiratory effort: normal Respiratory: bilateral: CTA - Cardiovascular Heart rate: 88 Rhythm: regular Heart Sounds: Present: S1 & S2. Absent: rub, click - Extremities Extremities: pulses symmetrical, No edema Peripheral Pulses: within normal limits - Abdominal General gastrointestinal: Present: soft, non-tender, non-distended, normal bowel sounds Female genitourinary: Present: normal - Rectal Rectal Exam: deferred - Integumentary Integumentary: Present: clear, warm, dry - Musculoskeletal Musculoskeletal: gait normal, strength equal bilaterally - Psychiatric Psychiatric: appropriate mood/affect, intact judgment & insight - Neurologic Neurologic: CNII-XII intact, moves all extremities - Allied Health Allied health notes reviewed: nursing, case management Results - Labs CBC & Chem 7: 06/29/19 13:07 06/29/19 13:07 Labs: Laboratory Last Values WBC 6.8 K/mm3 (4.5-11.0) 06/29/19 13:07 RBC 3.99 M/mm3 (3.65-5.03) 06/29/19 13:07 Hgb 11.1 gm/dl (10.1-14.3) 06/29/19 13:07 Hct 32.9 % (30.3-42.9) 06/29/19 13:07 MCV 82 fl (79-97) 06/29/19 13:07 MCH 28 pg (28-32) 06/29/19 13:07 MCHC 34 % (30-34) 06/29/19 13:07 RDW 15.4 % (13.2-15.2) H 06/29/19 13:07 Plt Count 268 K/mm3 (140-440) 06/29/19 13:07 Sodium 141 mmol/L (137-145) 06/29/19 13:07 Potassium 3.9 mmol/L (3.6-5.0) 06/29/19 13:07 Chloride 105.2 mmol/L (98-107) 06/29/19 13:07 Carbon Dioxide 19 mmol/L (22-30) L 06/29/19 13:07 Anion Gap 21 mmol/L 06/29/19 13:07 BUN 35 mg/dL (7-17) H 06/29/19 13:07 Creatinine 4.0 mg/dL (0.7-1.2) H 06/29/19 13:07 Estimated GFR 15 ml/min 06/29/19 13:07 BUN/Creatinine Ratio 9 % 06/29/19 13:07 Glucose 94 mg/dL (65-100) 06/29/19 13:07 Calcium 9.8 mg/dL (8.4-10.2) 06/29/19 13:07 Total Bilirubin 0.20 mg/dL (0.1-1.2) 06/29/19 13:07 AST 10 units/L (5-40) 06/29/19 13:07 ALT 7 units/L (7-56) 06/29/19 13:07 Alkaline Phosphatase 64 units/L (35-129) 06/29/19 13:07 Total Protein 7.8 g/dL (6.3-8.2) 06/29/19 13:07 Albumin 4.0 g/dL (3.9-5) 06/29/19 13:07 Albumin/Globulin Ratio 1.1 % 06/29/19 13:07 - Imaging and Cardiology EKG: report reviewed (Sinus rhythm heart rate of 89/min left ventricular hypertrophy and left atrial enlargement) Assessment and Plan Advance Directives: Yes (Full code) VTE prophylaxis?: Chemical Plan of care discussed with patient/family: Yes - Patient Problems (1) Hypertensive emergency Current Visit: Yes Status: Acute Plan to address problem: Patient initiated on hydralazine 50 every 8 valsartan 160 every 12 and amlodipine 10 mg once a day IV hydralazine 10 mg q. 3.2 every 4 as needed IV hydralazine given in the emergency room Patient counseled about compliance and the dangers of noncompliance. Patient was told about high blood pressure causing cerebral hemorrhage and congestive heart failure and renal failure Lisinopril was stopped because of renal failure (2) WILIAN (acute kidney injury) Current Visit: Yes Status: Acute Plan to address problem: Baseline creatinine not known There may be underlying chronic kidney disease Nephrology consult requested (3) Generalized anxiety disorder Current Visit: Yes Status: Acute Plan to address problem: Continue Klonopin (4) Tension headache Current Visit: Yes Status: Acute Plan to address problem: Patient on Fioricet as needed (5) Depression Current Visit: Yes Status: Chronic Qualifiers: Depression Type: unspecified Qualified Code(s): F32.9 - Major depressive disorder, single episode, unspecified Plan to address problem: Continue citalopram (6) DVT prophylaxis Current Visit: No Status: Acute Plan to address problem: On heparin and GI prophylaxis
[2019-06-29] MEDS: BUTALB/ACETAMINOPHEN/CAFFEINE TAB PO PRN (22:22)
[2019-06-30] MEDS: hydrALAZINE 25 MG TAB PO SCH ×3 (00:50→13:02)
[2019-06-30] MEDS: VALSARTAN 160MG TAB PO SCH ×2 (00:50→09:28)
[2019-06-30] MEDS: BUTALB/ACETAMINOPHEN/CAFFEINE TAB PO PRN (05:14)
--- NOTE | 2019-06-30 08:13 | Discharge Summary ---
Providers - Providers Date of Admission: 06/29/19 16:46 Attending physician: ALEXANDRA HILL MD 06/29/19 22:20 Consult to Physician [CONS] Routine Comment: Consulting Provider: MONA HOLT Physician Instructions: Reason For Exam: CKD Primary care physician: DEBRA NEVAREZ Hospitalization Condition: Good Hospital course: 44-year-old woman who was sent to the ER by her psychotherapist. She was noted to have elevated blood pressure and was having panic attacks. Patient admits that she has been off her BP meds, when she has attacks of rita was or mental illness she has not had the ability to keep up with her appointments and get her medications. States that her mentation is improved now that is why she went to see her psychiatrist/psychotherapist. She had acute kidney injury, resolved with some IV fluids Noted to have severely elevated blood pressures, her meds were optimized. She was counseled about increased adherence to her medications, she verbalized understanding Preventative health counseling performed for 17 minutes -She received benzodiazepines for panic attacks. Diagnosis Hypertensive urgency Acute on chronic kidney disease, vasomotor nephropathy Depression Panic disorder Bipolar disease Nonadherence to treatment/medication Disposition: DC-01 TO HOME OR SELFCARE Time spent for discharge: 33 mins Core Measure Documentation - Palliative Care Palliative Care/ Comfort Measures: Not Applicable - Core Measures Any of the following diagnoses?: none Exam - Constitutional Vitals: Temp Pulse Resp BP Pulse Ox 98.6 F 80 18 170/101 97 06/30/19 04:12 06/30/19 05:14 06/30/19 04:12 06/30/19 05:14 06/30/19 07:49 General appearance: Present: no acute distress, well-nourished - EENT Eyes: Present: PERRL ENT: hearing intact, clear oral mucosa - Neck Neck: Present: supple, normal ROM - Respiratory Respiratory effort: normal Respiratory: bilateral: CTA - Cardiovascular Heart Sounds: Present: S1 & S2. Absent: rub, click - Extremities Extremities: pulses symmetrical, No edema Peripheral Pulses: within normal limits - Abdominal General gastrointestinal: Present: soft, non-tender, non-distended, normal bowel sounds Female genitourinary: Present: normal - Integumentary Integumentary: Present: clear, warm, dry - Musculoskeletal Musculoskeletal: gait normal, strength equal bilaterally - Psychiatric Psychiatric: appropriate mood/affect, intact judgment & insight - Neurologic Neurologic: CNII-XII intact, moves all extremities Plan Follow up with: DEBRA NEVAREZ MD [Primary Care Provider] - 7 Days Prescriptions: traZODone [Desyrel] 200 mg PO QHS #180 tablet Cyclobenzaprine [Flexeril 10 MG TAB] 10 mg PO QHS PRN #90 tablet PRN Reason: Muscle Spasm Dextroamphetamine/Amphetamine [Adderall 10 mg Tablet] 20 mg PO DAILY PRN #60 PRN Reason: attention deficit Spironolactone [Aldactone] 25 mg PO QDAY #90 tablet Citalopram [Celexa] 20 mg PO DAILY #90 Valsartan [Diovan] 160 mg PO BID #180 tablet Hydralazine HCl 50 mg PO TID #270 tablet clonazePAM [KlonoPIN] 1 mg PO BID #14 tablet Ibuprofen [Motrin 600 MG tab] 600 mg PO Q8H PRN #30 tablet PRN Reason: Pain NIFEdipine XL [Procardia Xl] 60 mg PO Q12HR #180 tablet atenoloL [Tenormin] 100 mg PO QDAY #180 tablet Vraylar 3 mg PO QDAY #90
[2019-06-30] MEDS: clonazePAM 0.5 MG TAB PO SCH (09:28)
[2019-06-30] MEDS ORDERED: amLODIPine 5 MG TAB PO SCH (10:00)
[2019-06-30] MEDS ORDERED: NON-FORMULARY EACH (Atenolol [Tenormin] 100 MG) PO SCH (10:00)
[2019-06-30] MEDS ORDERED: VRAYLAR 3 MG PO SCH (10:00)
[2019-06-30] MEDS ORDERED: CITALOPRAM 20 MG TAB PO SCH (10:00)
[2019-06-30] MEDS ORDERED: atenoloL 50 MG TAB PO SCH (10:00)
[2019-06-30] MEDS ORDERED: hydrALAZINE 25 MG TAB PO SCH (10:00)
[2019-06-30] MEDS ORDERED: SPIRONOLACTONE 25 MG TAB PO SCH (10:00)
[2019-06-30 10:54] LABS: Calcium 9.6 mg/dL (8.4-10.2)
[2019-06-30] MEDS ORDERED: NIFEdipine XL 60 MG TAB PO SCH (12:00)
[2019-06-30] MEDS ORDERED: FLU VACC QUAD 2019-20 (3 YR UP)/PF 60 MCG/0.5 ML SYRINGE IM ONE (12:00)
--- NOTE | 2019-06-30 12:32 | Consultation ---
History of Present Illness - Reason for Consult Consult date: 06/30/19 acute renal failure, chronic renal failure Requesting physician: ALEXANDRA HILL - History of Present Illness 44-year-old -[place] female with history of hypertension and noncompliant sent in to the emergency room from her psychotherapist office. Patient was noted to have panic attacks and high blood pressure in the office and was sent here. Patient has not been taking her medications for the past 2 weeks. Her anxiety is increased and is also having headaches off and on. No shortness of breath. No chest pain. No recent travel. No fever or chills. Patient states that she had seen me in the office recently. She however does not recall her baseline renal function. Denies any chest pain or shortness of breath. No nausea or vomiting. States that her stool has been somewhat soft. But no diarrhea. She also does take some ibuprofen Past History Past Medical History: hypertension, renal failure, other (psychiatric disorder) Past Surgical History: No surgical history Social history: no significant social history Family history: no significant family history Medications and Allergies Allergies Allergy/AdvReac Type Severity Reaction Status Date / Time acetaminophen [From Percocet] Allergy Unknown Verified 12/04/18 15:19 lisinopril Allergy Angioedema Verified 12/04/18 15:09 oxycodone [From Percocet] Allergy Unknown Verified 12/04/18 15:19 Home Medications Medication Instructions Recorded Confirmed Last Taken Type Citalopram [Celexa] 20 mg PO DAILY #90 06/30/19 Unknown Rx Cyclobenzaprine [Flexeril 10 MG 10 mg PO QHS PRN #90 tablet 06/30/19 Unknown Rx TAB] Dextroamphetamine/Amphetamine 20 mg PO DAILY PRN #60 06/30/19 Unknown Rx [Adderall 10 mg Tablet] Hydralazine HCl 50 mg PO TID #270 tablet 06/30/19 Unknown Rx Ibuprofen [Motrin 600 MG tab] 600 mg PO Q8H PRN #30 tablet 06/30/19 Unknown Rx NIFEdipine XL [Procardia Xl] 60 mg PO Q12HR #180 tablet 06/30/19 Unknown Rx Spironolactone [Aldactone] 25 mg PO QDAY #90 tablet 06/30/19 Unknown Rx Valsartan [Diovan] 160 mg PO BID #180 tablet 06/30/19 Unknown Rx Vraylar 3 mg PO QDAY #90 06/30/19 Unknown Rx atenoloL [Tenormin] 100 mg PO QDAY #180 tablet 06/30/19 Unknown Rx clonazePAM [KlonoPIN] 1 mg PO BID #14 tablet 06/30/19 Unknown Rx traZODone [Desyrel] 200 mg PO QHS #180 tablet 06/30/19 Unknown Rx Active Meds: Active Medications Acetaminophen/Butalbital/Caffeine (Fioricet) 2 tab PO Q6H PRN PRN Reason: Headache Last Admin: 06/30/19 05:14 Dose: 2 tab Documented by: Atenolol (Tenormin) 100 mg PO QDAY [facility] Last Admin: 06/30/19 09:28 Dose: 100 mg Documented by: Citalopram Hydrobromide (Celexa) 20 mg PO DAILY [facility] Last Admin: 06/30/19 09:29 Dose: 20 mg Documented by: Clonazepam (Klonopin) 1 mg PO BID [facility] Last Admin: 06/30/19 09:28 Dose: 1 mg Documented by: Cyclobenzaprine HCl (Flexeril) 10 mg PO QHS PRN PRN Reason: Muscle Spasm Hydralazine HCl (Apresoline) 10 mg IV Q4HR PRN PRN Reason: Blood Pressure Last Admin: 06/29/19 21:29 Dose: 10 mg Documented by: Hydralazine HCl (Apresoline) 50 mg PO Q8HR [facility] Last Admin: 06/30/19 05:14 Dose: 50 mg Documented by: Ibuprofen (Ibuprofen) 600 mg PO Q8H PRN PRN Reason: Pain, Mild (1-3) Lorazepam (Ativan) 0.5 mg IV Q8H PRN PRN Reason: Anxiety Miscellaneous Medication (Dextroamphetamine/Amphetamine [Adderall 10 Mg Tablet]) 20 mg PO DAILY PRN PRN Reason: attention deficit Miscellaneous Medication (Vraylar) 3 mg PO QDAY [facility] Nifedipine (Procardia Xl) 60 mg PO Q12HR [facility] Ondansetron HCl (Zofran Odt) 4 mg PO Q8HR PRN PRN Reason: Nausea And Vomiting Trazodone HCl (Desyrel) 200 mg PO QHS [facility] Valsartan (Diovan) 160 mg PO BID [facility] Last Admin: 06/30/19 09:28 Dose: 160 mg Documented by: Review of Systems All systems: negative (negative except as noted above) Exam - Vital Signs Vital signs: Vital Signs Temp Pulse Resp BP Pulse Ox 98.9 F 117 H 18 235/149 100 06/29/19 12:17 06/29/19 12:17 06/29/19 12:17 06/29/19 12:17 06/29/19 12:17 - General Appearance General appearance: well-developed, well-nourished, appears stated age EENT: PERRL, mucous membranes moist Neck: Present: neck supple, trachea midline. Absent: JVD/HJR, Masses Respiratory: Clear to Ascultation Heart: regular, normal heart rate, S1S2, no murmurs Gastrointestinal: Present: normal, normoactive bowel sounds Integumentary: no rash, other (no edema) Results - Lab Results 06/29/19 13:07 06/30/19 08:28 Most recent lab results Calcium 9.6 mg/dL (8.4-10.2) 06/30/19 08:28 Assessment and Plan Impression * Acute on chronic renal failure * Hypertension * Psychiatric disorder Recommendations * It appears that her serum creatinine was approximately 3.0 in 2019 and around 2.0 back in 2018. * She probably has a prerenal component, compounded by use of recent NAVARRO inhibitor * Check a UA, fractional excretion of sodium as well as urine for U senna feels * Shall hydrate her gently * Stop her nonsteroidals. Patient advised to avoid nonsteroidals as well as Carson 2 inhibitors * Check office records regarding her prior renal status and workup * Avoid nephrotoxins * Monitor fluid status and electrolytes closely * Thank you very much for the consultation. Shall follow along with you
[2019-06-30] MEDS ORDERED: SODIUM CHLORIDE 0.45% 1000 ML 1,000 ML IV SCH (13:00)
[2019-06-30 14:47] VITALS: BP 138/84
[2019-06-30] MEDS ORDERED: traZODone 100 MG TAB PO SCH (22:00)
[2019-06-30] MEDS ORDERED: ATIVAN 1 MG PO SCH (22:00)
[2019-06-30] MEDS ORDERED: TRAZODONE 200 MG PO SCH (22:00)
== END 2019-06-30 16:19 | disposition home or self-care (01) ==
LOC: ED 11:24 → 4A 16:46
PROVIDERS: ADMIT Internal Medicine; ATTEND Internal Medicine
DX: I16.1 Hypertensive emergency (principal); F41.1 Generalized anxiety disorder; G44.209 Tension-type headache, unspecified, not intractable; N17.9 Acute kidney failure, unspecified; I12.9 Hypertensive chronic kidney disease with stage 1 through stage 4 chronic kidney disease, or unspecified chronic kidney disease; N18.3 Chronic kidney disease, stage 3 (moderate); F32.9 Major depressive disorder, single episode, unspecified; F41.9 Anxiety disorder, unspecified; Z98.51 Tubal ligation status; Z79.82 Long term (current) use of aspirin; Z79.899 Other long term (current) drug therapy; Z88.5 Allergy status to narcotic agent; Z88.8 Allergy status to other drugs, medicaments and biological substances; Z91.19 Patient's noncompliance with other medical treatment and regimen
CPT/HCPCS: 36415; 80048; 80053; 85027; 93005; 93010; 96374; 96376; 99291; G0378; J0360; J7030; 90686; 96375

== ENCOUNTER 2019-07-31 16:47 | Outpatient (CLI) | payer MEDICAID ==
[2019-07-31 17:15] LABS: Hematocrit 30.7 % (30.3-42.9); Hemoglobin 10.7 gm/dl (10.1-14.3); Mean Corpuscular HGB Conc 35 % (30-34); Mean Corpuscular Volume 81 fl (79-97); Platelet Count 326 K/mm3 (140-440); Red Blood Count 3.78 M/mm3 (3.65-5.03); Red Cell Distribution Width 15.9 % (13.2-15.2)
[2019-07-31 17:41] LABS: Albumin 4.3 g/dL (3.9-5); Calcium 9.2 mg/dL (8.4-10.2)
== END 2019-07-31 16:48 | disposition home or self-care (01) ==
LOC: LAB 16:47
PROVIDERS: ATTEND Internal Medicine
DX: R94.4 Abnormal results of kidney function studies (principal)
CPT/HCPCS: 36415; 80048; 82040; 84100; 85027

== ENCOUNTER 2019-08-04 18:14 | Emergency (ER) | payer MEDICAID ==
--- NOTE | 2019-08-04 20:12 | Event Note ---
ED Screening Note ED Screening Note: right lower back pain that began three days ago +urinary frequency +urgency no dysuria no n/v/d no fever no fall or injury took tylenol PMHx HTN, CKD allergy: lisinopril, oxycodone This initial assessment/diagnostic orders/clinical plan/treatment(s) is/are subject to change based on patients health status, clinical progression and re- assessment by fellow clinical providers in the ED. Further treatment and workup at subsequent clinical providers discretion. Patient/guardian urged not to elope from the ED as their condition may be serious if not clinically assessed and managed. Initial orders include: UA, urine preg
[2019-08-04 21:10] LABS: Bacteria,Urine 2+ /HPF (Negative); Bilirubin,Urine NEG (Negative); Blood,Urine NEG (Negative); Color,Urine Yellow (Yellow); Hyaline Casts,Urine 1 /LPF; Urobilinogen,Urine < 2.0 mg/dL (<2.0)
[2019-08-04 21:11] LABS: HCG Qualitative,Urine Negative (Negative)
--- NOTE | 2019-08-04 23:37 | Emergency Department Report ---
ED Back Pain/Injury HPI - General Chief Complaint: Back Pain/Injury Stated Complaint: MID BACK PAIN Time Seen by Provider: 08/04/19 20:10 Source: patient Mode of arrival: Ambulatory Limitations: No Limitations - History of Present Illness Initial Comments: This is a 44-year-old female that presents to the emergency room with right lower back pain for 3 days. Patient reports urinary frequency and urgency with associated symptoms. She denies recent injury. Patient also reports a history of hypertension, chronic kidney disease, and chronic low back pain. Patient states she never followed up with primary care doctor regarding back pain. States she was seeing a relationship executive last year. Taken Tylenol with no change of symptoms. She denies dysuria, nausea, vomiting, diarrhea, fever, recent fall. MD Complaint: back pain Onset/Timin -: days(s) Similar Symptoms Previously: Yes Place: home Radiation: none Severity: moderate Severity scale (0 -10): 7 Quality: aching Consistency: intermittent Improves With: none Worsens With: none Context: unknown Associated Symptoms: denies: numbness, difficulty urinating, incontinence, fever/chills Treatments Prior to Arrival: acetaminophen - Related Data Previous Rx's Medication Instructions Recorded Last Taken Type Citalopram [Celexa] 20 mg PO DAILY #90 06/30/19 Unknown Rx Cyclobenzaprine [Flexeril 10 MG 10 mg PO QHS PRN #90 tablet 06/30/19 Unknown Rx TAB] Dextroamphetamine/Amphetamine 20 mg PO DAILY PRN #60 06/30/19 Unknown Rx [Adderall 10 mg Tablet] Hydralazine HCl 50 mg PO TID #270 tablet 06/30/19 Unknown Rx Ibuprofen [Motrin 600 MG tab] 600 mg PO Q8H PRN #30 tablet 06/30/19 Unknown Rx NIFEdipine XL [Procardia Xl] 60 mg PO Q12HR #180 tablet 06/30/19 Unknown Rx Spironolactone [Aldactone] 25 mg PO QDAY #90 tablet 06/30/19 Unknown Rx Valsartan [Diovan] 160 mg PO BID #180 tablet 06/30/19 Unknown Rx Vraylar 3 mg PO QDAY #90 06/30/19 Unknown Rx atenoloL [Tenormin] 100 mg PO QDAY #180 tablet 06/30/19 Unknown Rx clonazePAM [KlonoPIN] 1 mg PO BID #14 tablet 06/30/19 Unknown Rx traZODone [Desyrel] 200 mg PO QHS #180 tablet 06/30/19 Unknown Rx Methocarbamol [Robaxin] 500 mg PO BID PRN #15 tablet 08/04/19 Unknown Rx Naproxen [Naprosyn TAB] 500 mg PO BID PRN #20 tablet 08/04/19 Unknown Rx Allergies Allergy/AdvReac Type Severity Reaction Status Date / Time acetaminophen [From Percocet] Allergy Unknown Verified 12/04/18 15:19 lisinopril Allergy Angioedema Verified 12/04/18 15:09 oxycodone [From Percocet] Allergy Unknown Verified 12/04/18 15:19 ED Review of Systems ROS: Stated complaint: MID BACK PAIN Other details as noted in HPI Constitutional: denies: chills, fever Respiratory: denies: cough, shortness of breath, wheezing Cardiovascular: denies: chest pain, palpitations Gastrointestinal: denies: abdominal pain, nausea, diarrhea Genitourinary: urgency, frequency. denies: dysuria, discharge Musculoskeletal: back pain. denies: joint swelling, arthralgia Skin: denies: rash, lesions Neurological: denies: headache, weakness, paresthesias Psychiatric: denies: anxiety, depression ED Past Medical Hx - Past Medical History PTSD Family history: no significant family history ED Back Pain Physical Exam - Exam General: Vital signs noted. No distress. Alert and acting appropriately. Back/Abdomen: Yes Perilumbar Tenderness (Bilateral L-spine, no midline tenderness, no step-off, no deformity), No Abdominal Tenderness, No Perithoracic Tenderness, No Sacroiliac Tenderness, No Flank Tenderness, No Straight Leg Raise Pain Neuro: Yes Normal Sensation, Yes Normal DTR's, Yes Normal Gait, No Motor Weakness ED Course Vital Signs 08/04/19 18:21 Temperature 97.8 F Pulse Rate 95 H Respiratory 18 Rate Blood Pressure 127/84 O2 Sat by Pulse 100 Oximetry Ed Back Pain Tests - Tests Tests: Normal UA ED Medical Decision Making - Lab Data Lab Results 08/04/19 Range/Units Unknown Urine Color Yellow (Yellow) Urine Turbidity Cloudy (Clear) Urine pH 5.0 (5.0-7.0) Ur Specific [place] 1.010 (1.003-1.030) Urine Protein 30 mg/dl (Negative) mg/dL Urine Glucose (UA) 50 (Negative) mg/dL Urine Ketones Neg (Negative) mg/dL Urine Blood Neg (Negative) Urine Nitrite Neg (Negative) Urine Bilirubin Neg (Negative) Urine Urobilinogen < 2.0 (<2.0) mg/dL Ur Leukocyte Esterase Neg (Negative) Urine WBC (Auto) 2.0 (0.0-6.0) /HPF Urine RBC (Auto) 4.0 (0.0-6.0) /HPF U Epithel Cells (Auto) 10.0 (0-13.0) /HPF Urine Bacteria (Auto) 2+ (Negative) /HPF Hyaline Casts 1 /LPF Urine HCG, Qual Negative (Negative) - Medical Decision Making This is a 44-year-old -[place] female who presents to the emergency room with right low back pain for 3 days. Vitals are stable and patient in no acute distress. Work-up: Urinalysis. The urinalysis is unremarkable. There is bilateral L-spine paraspinal tenderness. There is no midline tenderness or abdominal tenderness on exam. Patient admits to chronic low back pain. There is low suspicion for spine fracture or other acute spinal syndrome. Start muscle relaxant and NSAIDs. Referral to PCP for continued care. She was given strict return precautions. Patient discharged with prompt follow-up with primary care physician. Critical care attestation.: If time is entered above; I have spent that time in minutes in the direct care of this critically ill patient, excluding procedure time. ED Disposition Clinical Impression: Low back pain Qualifiers: Chronicity: acute Back pain laterality: bilateral Sciatica presence: without sciatica Qualified Code(s): M54.5 - Low back pain Disposition: TO HOME OR SELFCARE Is pt being admited?: No Condition: Stable Instructions: Acute Low Back Pain (ED), Arthralgia (ED) Additional Instructions: Rest Use ice or heat on affected area for 20 minutes and off for 2 hours. Take pain medication as needed for pain. Don't drive or operate heavy machinery while taking muscle relaxers because they may cause drowsiness. Follow up with Primary Care Provider in 2-3 days. Prescriptions: Naproxen [Naprosyn TAB] 500 mg PO BID PRN #20 tablet PRN Reason: Pain , Severe (7-10) Methocarbamol [Robaxin] 500 mg PO BID PRN #15 tablet PRN Reason: Muscle Spasm Referrals: [facility] [Outside] - 3-5 Days [facility] [Outside] - 3-5 Days [facility] [Outside] - 3-5 Days Time of Disposition: 23:44
[2019-08-05 00:06] VITALS: BP 151/81
== END 2019-08-05 00:06 | disposition home or self-care (01) ==
LOC: ED 18:14
DX: M54.5 Low back pain (principal); I12.9 Hypertensive chronic kidney disease with stage 1 through stage 4 chronic kidney disease, or unspecified chronic kidney disease; N18.3 Chronic kidney disease, stage 3 (moderate); G89.29 Other chronic pain; F43.10 Post-traumatic stress disorder, unspecified; Z88.8 Allergy status to other drugs, medicaments and biological substances; Z79.1 Long term (current) use of non-steroidal anti-inflammatories (NSAID); Z79.899 Other long term (current) drug therapy
CPT/HCPCS: 81001; 81025

== ENCOUNTER 2019-10-01 14:47 | Emergency (ER) | payer MEDICAID ==
[2019-10-01] MEDS ORDERED: ASPIRIN 325 MG TAB PO ONE (14:53)
--- NOTE | 2019-10-01 14:55 | Event Note ---
ED Screening Note Date of service: 10/01/19 Time: 14:51 ED Screening Note: 44 y/o female comes in for chest pain and MARMOLEJO started today. This initial assessment/diagnostic orders/clinical plan/treatment(s) is/are subject to change based on patients health status, clinical progression and re-assessment by fellow clinical providers in the ED. Further treatment and workup at subsequent clinical providers discretion. Patient/guardian urged not to elope from the ED as their condition may be serious if not clinically assessed and managed. Initial orders include: Chest pain Protocol
--- NOTE | 2019-10-01 15:16 | XRay Report ---
CHEST 1 VIEW INDICATION: Chest Pain. COMPARISON: 10/31/2016 FINDINGS: Support devices: None. Heart: Within normal limits. Lungs/Pleura: No acute air space or interstitial disease. Additional findings: None. IMPRESSION: 1. No acute findings. Signer Name: Joo Rojo MD Signed: 10/01/2019 3:12 PM Workstation Name: [id number]
[2019-10-01 16:10] LABS: Basophils % (Auto) 0.7 % (0.0-1.8); Eosinophils # (Auto) 0.1 K/mm3 (0.0-0.4); Eosinophils % (Auto) 2.1 % (0.0-4.3); Hemoglobin 10.4 gm/dl (10.1-14.3); Lymphocytes # (Auto) 1.2 K/mm3 (1.2-5.4); Lymphocytes % (Auto) 19.3 % (13.4-35.0); Mean Corpuscular HGB Conc 33 % (30-34); Mean Corpuscular Volume 85 fl (79-97); Monocytes # (Auto) 0.3 K/mm3 (0.0-0.8); Monocytes % (Auto) 5.4 % (0.0-7.3); Platelet Count 248 K/mm3 (140-440); Red Blood Count 3.77 M/mm3 (3.65-5.03); Red Cell Distribution Width 16.2 % (13.2-15.2)
[2019-10-01 16:35] LABS: BUN/Creatinine Ratio 13; Blood Urea Nitrogen 45 mg/dL (7-17); Hemolysis Index 92
[2019-10-01] MEDS ORDERED: MORPHINE 4 MG/1 ML INJ IM ONE (18:30)
[2019-10-01] MEDS ORDERED: cloNIDine 0.2 MG TAB PO ONE (18:30)
[2019-10-01] MEDS ORDERED: KETOROLAC 60 MG/2 ML INJ IM ONE (18:30)
[2019-10-01] MEDS ORDERED: hydrALAZINE 20 MG/1 ML INJ IM ONE (19:19)
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
[2019-10-01 21:04] VITALS: BP 183/109
== END 2019-10-01 21:07 | disposition home or self-care (01) ==
LOC: ED 14:47
DX: S29.011A Strain of muscle and tendon of front wall of thorax, initial encounter (principal); I16.0 Hypertensive urgency; F07.81 Postconcussional syndrome; M19.91 Primary osteoarthritis, unspecified site; R56.9 Unspecified convulsions; F31.9 Bipolar disorder, unspecified; F98.8 Other specified behavioral and emotional disorders with onset usually occurring in childhood and adolescence; Z87.448 Personal history of other diseases of urinary system; Z98.890 Other specified postprocedural states; Z98.51 Tubal ligation status; Z79.1 Long term (current) use of non-steroidal anti-inflammatories (NSAID); Z79.899 Other long term (current) drug therapy; Z88.8 Allergy status to other drugs, medicaments and biological substances; V49.69XA Unspecified car occupant injured in collision with other motor vehicles in traffic accident, initial encounter; W22.10XA Striking against or struck by unspecified automobile airbag, initial encounter; Y93.89 Activity, other specified; Y92.410 Unspecified street and highway as the place of occurrence of the external cause; Y99.8 Other external cause status
CPT/HCPCS: 36415; 71045; 80048; 84484; 85025; 93005; 96372; 99284; J0360; J1885

== ENCOUNTER 2020-03-05 10:34 | Outpatient (CLI) | payer MEDICAID ==
[2020-03-05 10:58] LABS: Hematocrit 31.5 % (30.3-42.9); Hemoglobin 11.1 gm/dl (10.1-14.3); Mean Corpuscular HGB Conc 35 % (30-34); Mean Corpuscular Volume 81 fl (79-97); Platelet Count 229 K/mm3 (140-440); Red Blood Count 3.87 M/mm3 (3.65-5.03); Red Cell Distribution Width 15.9 % (13.2-15.2)
[2020-03-05 11:25] LABS: Calcium 9.1 mg/dL (8.4-10.2)
[2020-03-05 17:40] LABS: Creatinine,Urine 68.7 mg/dL (0.1-20.0); Protein/Creatinine Ratio,Urine 0.73
== END 2020-03-05 10:35 | disposition home or self-care (01) ==
LOC: LAB 10:34
PROVIDERS: ATTEND Internal Medicine
DX: R94.4 Abnormal results of kidney function studies (principal); I10 Essential (primary) hypertension; N17.9 Acute kidney failure, unspecified; E87.6 Hypokalemia; F99 Mental disorder, not otherwise specified; D63.1 Anemia in chronic kidney disease; R60.1 Generalized edema; F41.9 Anxiety disorder, unspecified; M10.072 Idiopathic gout, left ankle and foot; E66.9 Obesity, unspecified
CPT/HCPCS: 36415; 80053; 82570; 84156; 85027

== ENCOUNTER 2020-06-17 10:24 | Emergency (ER) | payer MEDICAID ==
[2020-06-17 11:10] VITALS: BP 213/127
--- NOTE | 2020-06-17 11:10 | Event Note ---
ED Screening Note Date of service: 06/17/20 Time: 11:09 ED Screening Note: Patient complains of body aches, chills, and pleuritic chest pain x yesterday Recently returned from [place] Blood pressure significantly elevated This initial assessment/diagnostic orders/clinical plan/treatment(s) is/are subject to change based on patients health status, clinical progression and re- assessment by fellow clinical providers in the ED. Further treatment and workup at subsequent clinical providers discretion. Patient/guardian urged not to elope from the ED as their condition may be serious if not clinically assessed and managed. Initial orders include: Labs Chest x-ray
--- NOTE | 2020-06-17 12:17 | Emergency Department Report ---
ED Abdominal Pain HPI - General Chief Complaint: Nausea/Vomiting/Diarrhea Stated Complaint: ABDOMINAL PAIN/FEVER/CHILLS PUI?: No Time Seen by Provider: 06/17/20 11:07 Source: patient Mode of arrival: Ambulatory Limitations: No Limitations - History of Present Illness Initial Comments: Patient is a 44-year-old that comes to the emergency room with nausea vomiting diarrhea. Patient states that the only time she has abdominal pain is when she has diarrhea. She describes it as cramping. She endorses chills but has no fever. She has no chest pain shortness of breath or cough. Patient is ambulatory, nonill appearing and nontoxic on arrival to the ER triage area. Blood pressure noted to be elevated in triage. She denies any chest pain or shortness of breath. Patient reports taking her home medications. She does follow with a primary care for her medical comorbidities which include chronic kidney disease. Patient denies being around anybody that has been ill. However, she has recently traveled and she is concerned that she has Covid. By the time patient was seen in [facility] she had been in the ER for several hours and had no further nausea vomiting or diarrhea. She was ambulatory on arrival to the [facility]. Arrival to [facility] she denied any chest pain shortness of breath fever or chills. Patient is perimenopausal and has irregular periods she states she is not concerned for being because she is not sexually active. She denies any dysuria, back pain frequency, urgency or vaginal discharge or bleeding. Home medications reviewed. Past medical history confirmed with the EMR. -: Gradual, days(s) Quality: cramping Improves With: nothing Worsens With: nothing - Related Data Previous Rx's Medication Instructions Recorded Last Taken Type Citalopram [Celexa] 20 mg PO DAILY #90 06/30/19 Unknown Rx Dextroamphetamine/Amphetamine 20 mg PO DAILY PRN #60 06/30/19 Unknown Rx [Adderall 10 mg Tablet] Hydralazine HCl 50 mg PO TID #270 tablet 06/30/19 Unknown Rx NIFEdipine XL [Procardia Xl] 60 mg PO Q12HR #180 tablet 06/30/19 Unknown Rx Spironolactone [Aldactone] 25 mg PO QDAY #90 tablet 06/30/19 Unknown Rx Valsartan [Diovan] 160 mg PO BID #180 tablet 06/30/19 Unknown Rx Vraylar 3 mg PO QDAY #90 06/30/19 Unknown Rx atenoloL [Tenormin] 100 mg PO QDAY #180 tablet 06/30/19 Unknown Rx clonazePAM [KlonoPIN] 1 mg PO BID #14 tablet 06/30/19 Unknown Rx methOCARBAMOL [Robaxin TAB] 500 mg PO Q6H PRN #14 tablet 10/01/19 Unknown Rx Ondansetron [Zofran Odt] 4 mg PO Q8HR PRN #10 tab.rapdis 06/17/20 Unknown Rx Allergies Allergy/AdvReac Type Severity Reaction Status Date / Time acetaminophen [From Percocet] Allergy Unknown Verified 06/17/20 11:06 lisinopril Allergy Angioedema Verified 06/17/20 11:06 oxycodone [From Percocet] Allergy Unknown Verified 06/17/20 11:06 ED Review of Systems ROS: Stated complaint: ABDOMINAL PAIN/FEVER/CHILLS Other details as noted in HPI Comment: All other systems reviewed and negative ED Past Medical Hx - Past Medical History Previous Medical History?: Yes Hx Hypertension: Yes Hx CVA: No Hx Heart Attack/AMI: No Hx Congestive Heart Failure: No Hx Diabetes: No Hx Deep Vein Thrombosis: No Hx Pulmonary Embolism: No Hx GERD: No Hx Liver Disease: No Hx Renal Disease: Yes (stage 3) Hx of Cancer: No Hx Sickle Cell Disease: No Hx Arthritis: Yes Hx Headaches / Migraines: No Hx Seizures: Yes Hx Kidney Stones: No Hx Psychiatric Treatment: Yes (depression,ADD,bipolar) Hx Tuberculosis: No Hx HIV: No Additional medical history: PTSD - Surgical History Past Surgical History?: Yes Hx Coronary Stent: No Hx Pacemaker: No Hx Internal Defibrillator: No Additional Surgical History: hernia repair, tubiligation. x2. ovarian surgery - Family History Family history: no significant - Social History Smoking Status: Current Every Day Smoker Substance Use Type: None - Medications Home Medications: Home Medications Medication Instructions Recorded Confirmed Last Taken Type Citalopram [Celexa] 20 mg PO DAILY #90 06/30/19 Unknown Rx Dextroamphetamine/Amphetamine 20 mg PO DAILY PRN #60 06/30/19 Unknown Rx [Adderall 10 mg Tablet] Hydralazine HCl 50 mg PO TID #270 tablet 06/30/19 Unknown Rx NIFEdipine XL [Procardia Xl] 60 mg PO Q12HR #180 tablet 06/30/19 Unknown Rx Spironolactone [Aldactone] 25 mg PO QDAY #90 tablet 06/30/19 Unknown Rx Valsartan [Diovan] 160 mg PO BID #180 tablet 06/30/19 Unknown Rx Vraylar 3 mg PO QDAY #90 06/30/19 Unknown Rx atenoloL [Tenormin] 100 mg PO QDAY #180 tablet 06/30/19 Unknown Rx clonazePAM [KlonoPIN] 1 mg PO BID #14 tablet 06/30/19 Unknown Rx methOCARBAMOL [Robaxin TAB] 500 mg PO Q6H PRN #14 tablet 10/01/19 Unknown Rx Ondansetron [Zofran Odt] 4 mg PO Q8HR PRN #10 tab.rapdis 06/17/20 Unknown Rx ED Physical Exam - General Limitations: No Limitations General appearance: alert, in no apparent distress - Head Head exam: Present: atraumatic, normocephalic - Eye Eye exam: Present: normal appearance - ENT ENT exam: Present: mucous membranes moist - Neck Neck exam: Present: normal inspection - Respiratory Respiratory exam: Present: normal lung sounds bilaterally. Absent: respiratory distress - Cardiovascular Cardiovascular Exam: Present: regular rate, normal rhythm. Absent: systolic murmur, diastolic murmur, rubs, gallop - GI/Abdominal GI/Abdominal exam: Present: soft, normal bowel sounds - Extremities Exam Extremities exam: Present: normal inspection - Back Exam Back exam: Present: normal inspection - Neurological Exam Neurological exam: Present: alert, oriented X3 - Psychiatric Psychiatric exam: Present: normal affect, normal mood - Skin Skin exam: Present: warm, dry, intact, normal color. Absent: rash ED Course Vital Signs 06/17/20 10:57 Temperature 98.1 F Pulse Rate 89 Respiratory 18 Rate Blood Pressure 213/127 O2 Sat by Pulse 100 Oximetry - Reevaluation(s) Reevaluation #1: 06/17/20 16:25 On additional exam patient is sitting up watching TV and eating and drinking without difficulty. ED Medical Decision Making - Lab Data Result diagrams: 06/17/20 12:59 06/17/20 12:59 - Radiology Data Radiology results: report reviewed, image reviewed No acute process - Medical Decision Making Lab Results 06/17/20 06/17/20 06/17/20 Range/Units 12:59 12:59 15:22 WBC 5.8 (4.5-11.0) K/mm3 RBC 3.86 (3.65-5.03) M/mm3 Hgb 10.6 (10.1-14.3) gm/dl Hct 31.8 (30.3-42.9) % MCV 82 (79-97) fl MCH 27 L (28-32) pg MCHC 33 (30-34) % RDW 15.8 H (13.2-15.2) % Plt Count 214 (140-440) K/mm3 Lymph % (Auto) 24.6 (13.4-35.0) % [place] % (Auto) 5.0 (0.0-7.3) % Eos % (Auto) 3.0 (0.0-4.3) % Baso % (Auto) 0.5 (0.0-1.8) % Lymph # (Auto) 1.4 (1.2-5.4) K/mm3 [place] # (Auto) 0.3 (0.0-0.8) K/mm3 Eos # (Auto) 0.2 (0.0-0.4) K/mm3 Baso # (Auto) 0.0 (0.0-0.1) K/mm3 Seg Neutrophils % 66.9 (40.0-70.0) % Seg Neutrophils # 3.9 (1.8-7.7) K/mm3 Sodium 138 (137-145) mmol/L Potassium 3.8 (3.6-5.0) mmol/L Chloride 104.1 (98-107) mmol/L Carbon Dioxide 25 (22-30) mmol/L Anion Gap 13 mmol/L BUN 50 H (7-17) mg/dL Creatinine 5.2 H (0.6-1.2) mg/dL Estimated GFR 11 ml/min BUN/Creatinine Ratio 10 % Glucose 92 (65-100) mg/dL Calcium 9.1 (8.4-10.2) mg/dL Total Bilirubin < 0.20 (0.1-1.2) mg/dL AST 12 (5-40) units/L ALT 10 (7-56) units/L Alkaline Phosphatase 82 (35-129) units/L Troponin T < 0.010 (0.00-0.029) ng/mL Total Protein 7.5 (6.3-8.2) g/dL Albumin 4.1 (3.9-5) g/dL Albumin/Globulin Ratio 1.2 % Lipase 50 (13-60) units/L Vital Signs 06/17/20 10:57 Temperature 98.1 F Pulse Rate 89 Respiratory 18 Rate Blood Pressure 213/127 O2 Sat by Pulse 100 Oximetry Labs noted. Note patient has acute on chronic kidney disease. Her potassium is normal. Patient denies any chest pain or shortness of breath. Patient has known hypertension. She does take her home medications. X-ray noted. I have reassured patient that she does not have Covid pneumonia. I have explained to her that we do not do rapid test and how that she could obtain 1. 1615 on reexam patient has no nausea vomiting, shortness of breath, fever or chills. She denies having any nausea vomiting or diarrhea since she arrived in the ER. Patient was hydrated gently with a liter of fluid. She is ambulatory at the current time. She is taking p.o. without difficulty. Patient is being discharged home with PCP follow-up in 48 hours. Patient verbalizes understanding of discharge plan of care including medications, follow-up, diet and activity. Patient has been given a local referral for follow-up. I have explained to patient that her creatinine is a little more elevated than she reports that normally being but this would be consistent with her gastroenteritis nausea vomiting and diarrhea. I have explained to her that she needs to see her primary care as soon as possible to get her creatinine rechecked to be sure that it is trending back towards her baseline. - Differential Diagnosis Rule out URI, gastroenteritis, cholecystitis Critical care attestation.: If time is entered above; I have spent that time in minutes in the direct care of this critically ill patient, excluding procedure time. ED Disposition Clinical Impression: Renal insufficiency, Chronic hypertension, Gastroenteritis Disposition: -01 TO HOME OR SELFCARE Is pt being admited?: No Does the pt Need Aspirin: No Condition: Stable Instructions: Viral Gastroenteritis, Adult, [id number], Hypertension (ED) Additional Instructions: diet as tolerated stay well hydrated continue home meds see pcp in 24-48 hours for follow up - to be sure you are getting better. He can access your chart and compare to your prior labs Prescriptions: Ondansetron [Zofran Odt] 4 mg PO Q8HR PRN #10 tab.rapdis PRN Reason: Vomiting Referrals: DEBRA NEVAREZ MD [Primary Care Provider] - 3-5 Days ROLA ANDERSON MD [Staff Physician] - 3-5 Days Time of Disposition: 16:15
--- NOTE | 2020-06-17 12:37 | XRay Report ---
CHEST 2 VIEWS INDICATION / CLINICAL INFORMATION: cough. COMPARISON: 10/01/2019 FINDINGS: SUPPORT DEVICES: None. HEART / MEDIASTINUM: No significant abnormality. LUNGS / PLEURA: No significant pulmonary or pleural abnormality. No pneumothorax. ADDITIONAL FINDINGS: No significant additional findings. IMPRESSION: 1. No acute findings. Signer Name: Imtiaz Colmenares MD Signed: 06/17/2020 12:32 PM Workstation Name: [id number]
[2020-06-17 13:59] LABS: Basophils % (Auto) 0.5 % (0.0-1.8); Eosinophils # (Auto) 0.2 K/mm3 (0.0-0.4); Hematocrit 31.8 % (30.3-42.9); Hemoglobin 10.6 gm/dl (10.1-14.3); Lymphocytes # (Auto) 1.4 K/mm3 (1.2-5.4); Lymphocytes % (Auto) 24.6 % (13.4-35.0); Mean Corpuscular HGB Conc 33 % (30-34); Mean Corpuscular Volume 82 fl (79-97); Monocytes # (Auto) 0.3 K/mm3 (0.0-0.8); Platelet Count 214 K/mm3 (140-440); Red Blood Count 3.86 M/mm3 (3.65-5.03); Red Cell Distribution Width 15.8 % (13.2-15.2)
[2020-06-17 14:21] LABS: Alanine Aminotransferase 10 units/L (7-56); Albumin 4.1 g/dL (3.9-5); Blood Urea Nitrogen 50 mg/dL (7-17); Calcium 9.1 mg/dL (8.4-10.2); Hemolysis Index 14
[2020-06-17 14:22] LABS: BUN/Creatinine Ratio 10
[2020-06-17] MEDS ORDERED: SODIUM CHLORIDE 0.9% 1000 ML 1,000 ML IV ONE (14:24)
== END 2020-06-17 17:48 | disposition home or self-care (01) ==
LOC: ED 10:24
DX: N28.9 Disorder of kidney and ureter, unspecified (principal); I10 Essential (primary) hypertension; K52.9 Noninfective gastroenteritis and colitis, unspecified; M19.90 Unspecified osteoarthritis, unspecified site; F32.9 Major depressive disorder, single episode, unspecified; Z98.51 Tubal ligation status; Z98.890 Other specified postprocedural states; Z79.899 Other long term (current) drug therapy; Z88.8 Allergy status to other drugs, medicaments and biological substances
CPT/HCPCS: 36415; 71046; 80053; 83690; 84484; 85025; 96360; 96361; 99284; J7030